=== PATIENT | female | born 1955 | race Caucasian/White ===

== ENCOUNTER 2018-07-22 04:35 | Inpatient (IN) ==
[2018-07-22] MEDS ORDERED: ALBUTEROL/IPRATROPIUM 3 ML NEB RESP TX STA (04:37)
[2018-07-22] MEDS ORDERED: methylPREDNISolone SOD SUC 125 MG/2 ML VIAL IV STA (04:43)
[2018-07-22 05:06] LABS: Basophils % 0.5 % (0.0-0.8); Eosinophils # 0.1 10*3/uL (0.0-0.87); Eosinophils % 0.8 % (0.00-10.9); Hematocrit 45.6 VOL% (35.7-47.0); Hemoglobin 15.6 GM/DL (12.0-16.0); Immature Granulocytes % 0.4 %; Immature Granulocytes Absolute 0.03 #; Lymphocytes # 1.7 10*3/uL (1.4-4.0); Lymphocytes % 20.2 % (21.3-54.2); Mean Corpuscular HGB Conc 34.2 GM/DL (32-36); Mean Corpuscular Hemoglobin 32 PG (27-34); Mean Corpuscular Volume 94.8 FL (87-102); Mean Platelet Volume 9.7 FL (9.6-12.0); Monocytes # 0.7 10*3/uL (0.11-0.8); Monocytes % 8.6 % (1.7-12.7); Neutrophils # 5.9 10*3/uL (1.4-7.4); Neutrophils % 69.5 % (38.7-73.9); Platelet Count 101 T/CUMM (130-400); Red Blood Count 4.81 MC/CUMM (3.8-5.5); Red Cell Distribution Width 13.1 % (9.3-17.3); White Blood Count 8.5 T/CUMM (4-12)
[2018-07-22 05:10] LABS: VBG Base Excess 0.4 MEQ/L (0-4); VBG HCO3 25.9 MEQ/L (24-28); VBG Oxygen Saturation 97.2 %; VBG PCO2 44.6 MMHG (41-51); VBG PH 7.381; VBG PO2 99.8 MMHG (17-40)
[2018-07-22 05:34] LABS: Albumin 3.7 G/DL (3.4-5.0); Bilirubin,Total 0.9 MG/DL (0.2-1.0); Calcium 9.3 MG/DL (8.5-10.1); Osmolality,Calculated 285.5 MOS/KG (273-304); Potassium 3.6 MMOL/L (3.5-5.1); Total Protein 8.9 G/DL (6.4-8.3)
[2018-07-22] MEDS ORDERED: LEVOFLOXACIN INJ 500 MG in PREMIX 1 EACH IV STA (08:18)
[2018-07-22] MEDS ORDERED: ALBUTEROL/IPRATROPIUM 3 ML NEB RESP TX SCH (09:00)
[2018-07-22] MEDS: ENOXAPARIN 40 MG/0.4 ML SYRINGE SUBCUT SCH (09:22)
[2018-07-22] MEDS: SODIUM CHLORIDE 0.9% 1,000 ML IV SCH ×2 (09:22→21:25)
[2018-07-22] MEDS: methylPREDNISolone SOD SUC 40 MG/1 ML VIAL IV SCH ×2 (09:23→21:27)
[2018-07-22] MEDS: PANTOPRAZOLE 40 MG TABLET PO SCH (09:23)
[2018-07-22] MEDS ORDERED: LINEZOLID INJ 600 MG in PREMIX 1 EACH IV SCH (10:00)
[2018-07-22] MEDS: ALBUTEROL/IPRATROPIUM 3 ML NEB RESP TX SCH ×3 (10:33→19:20)
[2018-07-22] MEDS ORDERED: diphenhydrAMINE CAP 25 MG CAPSULE PO PRN (13:05)
[2018-07-22] MEDS: INSULIN LISPRO 100 UNIT/ML SUBCUT SCH ×2 (17:33→21:25)
[2018-07-22] MEDS: MONTELUKAST 10 MG TABLET PO SCH (21:27)
[2018-07-22] MEDS: MELATONIN 3 MG TABLET PO SCH (21:27)
[2018-07-22] MEDS: FAMOTIDINE 20 MG TABLET PO SCH (21:27)
[2018-07-22] MEDS: ALBUTEROL 2 MG TABLET PO SCH (22:34)
[2018-07-23 05:25] LABS: Basophils % 0.2 % (0.0-0.8); Hematocrit 37.8 VOL% (35.7-47.0); Hemoglobin 13.1 GM/DL (12.0-16.0); Immature Granulocytes % 0.5 %; Immature Granulocytes Absolute 0.03 #; Lymphocytes # 1.1 10*3/uL (1.4-4.0); Lymphocytes % 17.1 % (21.3-54.2); Mean Corpuscular HGB Conc 34.7 GM/DL (32-36); Mean Corpuscular Hemoglobin 33 PG (27-34); Mean Corpuscular Volume 93.8 FL (87-102); Monocytes # 0.4 10*3/uL (0.11-0.8); Monocytes % 6.1 % (1.7-12.7); Neutrophils # 4.9 10*3/uL (1.4-7.4); Neutrophils % 76.1 % (38.7-73.9); Platelet Count 99 T/CUMM (130-400); Red Blood Count 4.03 MC/CUMM (3.8-5.5); White Blood Count 6.4 T/CUMM (4-12)
[2018-07-23 05:36] LABS: Calcium 8.4 MG/DL (8.5-10.1); Osmolality,Calculated 287.5 MOS/KG (273-304)
[2018-07-23] MEDS: ALBUTEROL 2 MG TABLET PO SCH ×3 (05:52→21:17)
[2018-07-23 06:06] LABS: Band Neutrophils 1 % (0-10); Lymphocytes 25 % (20-55); Platelet Estimate Decreased; Segmented Neutrophils 70 % (50-85); Total Cells Counted 100
[2018-07-23] MEDS: ALBUTEROL/IPRATROPIUM 3 ML NEB RESP TX SCH ×4 (07:00→19:22)
[2018-07-23] MEDS ORDERED: THEOPHYLLINE ER (24 HR) 200 MG CAPSULE PO SCH (09:00)
[2018-07-23] MEDS: INSULIN LISPRO 100 UNIT/ML SUBCUT SCH ×4 (09:49→21:09)
[2018-07-23] MEDS: FAMOTIDINE 20 MG TABLET PO SCH ×2 (09:51→21:09)
[2018-07-23] MEDS: PANTOPRAZOLE 40 MG TABLET PO SCH (09:51)
[2018-07-23] MEDS: ENOXAPARIN 40 MG/0.4 ML SYRINGE SUBCUT SCH (09:54)
[2018-07-23] MEDS: methylPREDNISolone SOD SUC 40 MG/1 ML VIAL IV SCH ×2 (09:54→21:10)
[2018-07-23] MEDS: LEVOFLOXACIN INJ 250 MG in PREMIX 1 EACH IV SCH (09:57)
[2018-07-23] MEDS: buPROPion SR 150 MG TABLET PO SCH ×2 (12:13→21:10)
[2018-07-23] MEDS: CLORAZEPATE 3.75 MG TABLET PO SCH ×2 (12:13→21:10)
[2018-07-23] MEDS: NICOTINE 21 MG/24 HR PATCH TRANSDERM SCH (12:13)
[2018-07-23] MEDS: FLUTICASONE 50 MCG NASAL SPRAY 16 GM BOTTLE BOTH NARES SCH ×2 (12:14→21:15)
[2018-07-23] MEDS: FLUTICASONE/SALMETEROL 500-50 DISKUS 14 DOSE INH SCH ×2 (12:14→21:15)
[2018-07-23] MEDS: SODIUM CHLORIDE 0.9% 1,000 ML IV SCH (14:30)
[2018-07-23] MEDS: THEOPHYLLINE ER (24 HR) 200 MG CAPSULE PO SCH (21:09)
[2018-07-23] MEDS: MELATONIN 3 MG TABLET PO SCH (21:10)
[2018-07-23] MEDS: MONTELUKAST 10 MG TABLET PO SCH (21:10)
[2018-07-24] MEDS: SODIUM CHLORIDE 0.9% 1,000 ML IV SCH (02:33)
[2018-07-24] MEDS: ALBUTEROL 2 MG TABLET PO SCH ×2 (06:00→14:46)
[2018-07-24 06:12] LABS: Basophils % 0.3 % (0.0-0.8); Hemoglobin 13.2 GM/DL (12.0-16.0); Immature Granulocytes % 1.6 %; Immature Granulocytes Absolute 0.09 #; Lymphocytes % 17.4 % (21.3-54.2); Mean Corpuscular HGB Conc 33.8 GM/DL (32-36); Mean Corpuscular Hemoglobin 32 PG (27-34); Mean Corpuscular Volume 94.7 FL (87-102); Mean Platelet Volume 9.8 FL (9.6-12.0); Monocytes # 0.4 10*3/uL (0.11-0.8); Monocytes % 6.8 % (1.7-12.7); Neutrophils # 4.3 10*3/uL (1.4-7.4); Neutrophils % 73.9 % (38.7-73.9); Platelet Count 114 T/CUMM (130-400); Red Blood Count 4.12 MC/CUMM (3.8-5.5); Red Cell Distribution Width 13.7 % (9.3-17.3); White Blood Count 5.8 T/CUMM (4-12)
[2018-07-24 06:33] LABS: Albumin 3.3 G/DL (3.4-5.0); Bilirubin,Total 0.7 MG/DL (0.2-1.0); Calcium 8.8 MG/DL (8.5-10.1); Potassium 3.4 MMOL/L (3.5-5.1); Total Protein 7.8 G/DL (6.4-8.3)
[2018-07-24] MEDS: ALBUTEROL/IPRATROPIUM 3 ML NEB RESP TX SCH ×3 (06:56→15:52)
[2018-07-24 08:12] LABS: Total Protein (Chem) 8.9 G/DL (6.4-8.3)
[2018-07-24] MEDS ORDERED: POTASSIUM CHLORIDE RIDER 10 MEQ in PREMIX 1 EACH IV PRN (08:43)
[2018-07-24] MEDS: INSULIN LISPRO 100 UNIT/ML SUBCUT SCH ×2 (09:14→12:13)
[2018-07-24] MEDS: NICOTINE 21 MG/24 HR PATCH TRANSDERM SCH (09:15)
[2018-07-24] MEDS: methylPREDNISolone SOD SUC 40 MG/1 ML VIAL IV SCH (09:15)
[2018-07-24] MEDS: FAMOTIDINE 20 MG TABLET PO SCH (09:16)
[2018-07-24] MEDS: CLORAZEPATE 3.75 MG TABLET PO SCH (09:16)
[2018-07-24] MEDS: FLUTICASONE/SALMETEROL 500-50 DISKUS 14 DOSE INH SCH (09:16)
[2018-07-24] MEDS: buPROPion SR 150 MG TABLET PO SCH (09:16)
[2018-07-24] MEDS: PANTOPRAZOLE 40 MG TABLET PO SCH (09:16)
[2018-07-24] MEDS: THEOPHYLLINE ER (24 HR) 200 MG CAPSULE PO SCH (09:16)
[2018-07-24] MEDS: LEVOFLOXACIN INJ 250 MG in PREMIX 1 EACH IV SCH (09:17)
[2018-07-24] MEDS: FLUTICASONE 50 MCG NASAL SPRAY 16 GM BOTTLE BOTH NARES SCH ×2 (09:17→09:28)
[2018-07-24 10:24] LABS: Albumin (SPE) 4.7 G/DL (3.2-5.3); Albumin (SPE) Rel % 52.4 %
[2018-07-24 10:25] LABS: Alpha 1 (SPE) 0.2 G/DL (0.1-0.4); Alpha 1 (SPE) Rel % 2.3 %; Alpha 2 (SPE) 0.8 G/DL (0.4-1.0); Alpha 2 (SPE) Rel % 8.9 %; Beta (SPE) 0.8 G/DL (0.5-1.1); Beta (SPE) Rel % 9.8 %; Gamma (SPE) 2.4 G/DL (0.7-1.7); Gamma (SPE) Rel % 26.6 %
[2018-07-24] MEDS: POTASSIUM CHLORIDE 20 MEQ TABLET PO PRN ×2 (12:16→14:46)
[2018-07-24 13:23] VITALS: BP 176/96
[2018-07-24] MEDS ORDERED: amLODIPine 5 MG TABLET PO SCH (13:30)
== END 2018-07-24 15:42 | disposition home or self-care (01) | DRG 191 ==
LOC: EDBD → EDUNIT# → N.ED 04:35 → N.EDINP 06:19 → N.5E 08:15
PROVIDERS: ADMIT Hospitalist; ATTEND Hospitalist

== ENCOUNTER 2018-11-26 23:14 | Inpatient (IN) ==
[2018-11-26] MEDS ORDERED: MORPHINE 4 MG/1 ML VIAL IV STA (23:44)
[2018-11-26] MEDS ORDERED: hydrALAZINE 20 MG/1 ML VIAL IV STA (23:44)
[2018-11-26] MEDS ORDERED: ONDANSETRON 4 MG/2 ML VIAL IV STA (23:44)
[2018-11-27 00:14] LABS: Basophils % 0.3 % (0.0-0.8); Eosinophils # 0.1 10*3/uL (0.0-0.87); Eosinophils % 1.3 % (0.00-10.9); Hemoglobin 12.3 GM/DL (12.0-16.0); Immature Granulocytes % 0.1 %; Immature Granulocytes Absolute 0.01 #; Lymphocytes # 1.9 10*3/uL (1.4-4.0); Lymphocytes % 27.3 % (21.3-54.2); Mean Corpuscular HGB Conc 35.1 GM/DL (32-36); Mean Corpuscular Hemoglobin 32 PG (27-34); Mean Corpuscular Volume 90.4 FL (87-102); Mean Platelet Volume 9.8 FL (9.6-12.0); Monocytes # 0.7 10*3/uL (0.11-0.8); Monocytes % 10.3 % (1.7-12.7); Neutrophils # 4.2 10*3/uL (1.4-7.4); Neutrophils % 60.7 % (38.7-73.9); Platelet Count 100 T/CUMM (130-400); Red Blood Count 3.87 MC/CUMM (3.8-5.5); Red Cell Distribution Width 13.6 % (9.3-17.3)
[2018-11-27 00:29] LABS: Albumin 2.4 G/DL (3.4-5.0); Bilirubin,Total 1.1 MG/DL (0.2-1.0); Calcium 8.2 MG/DL (8.5-10.1); Osmolality,Calculated 270.4 MOS/KG (273-304); Total Protein 7.2 G/DL (6.4-8.3)
[2018-11-27 00:36] LABS: Potassium 2.2 MMOL/L (3.5-5.1)
[2018-11-27] MEDS ORDERED: POTASSIUM CHLORIDE 20 MEQ TABLET PO STA (01:38)
[2018-11-27] MEDS ORDERED: LACTULOSE 20 GM/30 ML UDCUP PO PRN (04:00)
[2018-11-27] MEDS ORDERED: diphenhydrAMINE CAP 25 MG CAPSULE PO PRN (04:00)
[2018-11-27] MEDS: MORPHINE 4 MG/1 ML VIAL IV PRN ×3 (04:28→20:07)
[2018-11-27] MEDS: ONDANSETRON 4 MG/2 ML VIAL IV PRN ×2 (04:30→20:08)
[2018-11-27 05:02] LABS: Basophils % 0.4 % (0.0-0.8); Eosinophils # 0.1 10*3/uL (0.0-0.87); Eosinophils % 0.7 % (0.00-10.9); Hematocrit 35.4 VOL% (35.7-47.0); Hemoglobin 12.3 GM/DL (12.0-16.0); Immature Granulocytes % 0.3 %; Immature Granulocytes Absolute 0.02 #; Lymphocytes # 1.7 10*3/uL (1.4-4.0); Lymphocytes % 23.2 % (21.3-54.2); Mean Corpuscular HGB Conc 34.7 GM/DL (32-36); Mean Corpuscular Hemoglobin 31 PG (27-34); Mean Corpuscular Volume 90.1 FL (87-102); Mean Platelet Volume 9.6 FL (9.6-12.0); Monocytes # 0.9 10*3/uL (0.11-0.8); Neutrophils # 4.5 10*3/uL (1.4-7.4); Neutrophils % 63.4 % (38.7-73.9); Platelet Count 112 T/CUMM (130-400); Red Blood Count 3.93 MC/CUMM (3.8-5.5); Red Cell Distribution Width 13.9 % (9.3-17.3); White Blood Count 7.2 T/CUMM (4-12)
[2018-11-27 05:12] LABS: PT Patient Result 11.2 SECS
[2018-11-27 05:19] LABS: Calcium 8.4 MG/DL (8.5-10.1); Osmolality,Calculated 266.7 MOS/KG (273-304)
[2018-11-27] MEDS ORDERED: cefTRIAXone 1,000 MG VIAL ONE (05:29)
[2018-11-27] MEDS: cefTRIAXone 1,000 MG in SYRINGE 1 EACH IV SCH (05:45)
[2018-11-27] MEDS ORDERED: POTASSIUM CHLORIDE 20 MEQ TABLET PO ONE (08:43)
[2018-11-27] MEDS ORDERED: PANTOPRAZOLE 40 MG VIAL IV SCH (09:00)
[2018-11-27] MEDS: THEOPHYLLINE ER (24 HR) 200 MG CAPSULE PO SCH (09:43)
[2018-11-27 09:58] LABS: Hepatitis A Ab IgM Quant 0.13 Index; Hepatitis A Ab IgM Result Negative (Negative); Hepatitis B Core IgM Quant 0.05 Index; Hepatitis B Core IgM Result Negative (Negative); Hepatitis B Surface Ag Quant 0.12 Index; Hepatitis B Surface Ag Result Negative (Negative); Hepatitis C Virus Ab Quant < 0.02 Index; Hepatitis C Virus Ab Result Negative (Negative)
[2018-11-27] MEDS: LACTULOSE 20 GM/30 ML UDCUP PO SCH ×2 (11:28→20:06)
[2018-11-27 16:10] LABS: RBC,Peritoneal Fluid 28 T/CUMM
[2018-11-27 16:12] LABS: Apearance,Urine CLEAR (Clear); Bilirubin,Urine Negative (Negative); Blood, Urine Negative (Negative); Glucose,Urine (UA) Negative (Negative); Ketones,Urine Negative (Negative); Nitrite,Urine Positive (Negative); Protein,Urine >=500 MG/DL; RBC,Urine 4 /HPF (0-4); Squamous Epithelial Cell,Urine Occasional /HPF (0-10); Urine Color Amber (Yellow); WBC,Urine 1 /HPF (0-6)
[2018-11-27] MEDS: POTASSIUM CHLORIDE 20 MEQ TABLET PO PRN ×2 (21:38→23:45)
[2018-11-28] MEDS: POTASSIUM CHLORIDE 20 MEQ TABLET PO PRN ×2 (02:24→03:49)
[2018-11-28 05:17] LABS: Albumin 2.2 G/DL (3.4-5.0); Bilirubin,Total 1.2 MG/DL (0.2-1.0); Calcium 8.4 MG/DL (8.5-10.1); Osmolality,Calculated 269.4 MOS/KG (273-304); Potassium 3.3 MMOL/L (3.5-5.1); Total Protein 6.7 G/DL (6.4-8.3)
[2018-11-28] MEDS: MORPHINE 4 MG/1 ML VIAL IV PRN (05:49)
[2018-11-28] MEDS: cefTRIAXone 1,000 MG in SYRINGE 1 EACH IV SCH (05:53)
[2018-11-28] MEDS ORDERED: FUROSEMIDE 40 MG TABLET PO SCH (09:00)
[2018-11-28] MEDS ORDERED: POTASSIUM CHLORIDE 20 MEQ TABLET PO ONE (09:00)
[2018-11-28] MEDS: LACTULOSE 20 GM/30 ML UDCUP PO SCH ×2 (09:16→21:57)
[2018-11-28] MEDS: THEOPHYLLINE ER (24 HR) 200 MG CAPSULE PO SCH (09:16)
[2018-11-28] MEDS: SPIRONOLACTONE 25 MG TABLET PO SCH ×2 (09:17→21:57)
[2018-11-28] MEDS: LISINOPRIL 10 MG TABLET PO SCH (14:33)
[2018-11-28] MEDS: glipiZIDE 5 MG TABLET PO SCH (17:31)
[2018-11-29] MEDS ORDERED: SODIUM CHLORIDE 0.9% 250 ML IV ONE (00:15)
[2018-11-29 05:27] LABS: Calcium 7.8 MG/DL (8.5-10.1); Osmolality,Calculated 271.8 MOS/KG (273-304); Potassium 3.1 MMOL/L (3.5-5.1)
[2018-11-29] MEDS: POTASSIUM CHLORIDE 20 MEQ TABLET PO SCH ×2 (08:31→14:33)
[2018-11-29] MEDS: LACTULOSE 20 GM/30 ML UDCUP PO SCH ×2 (08:31→20:58)
[2018-11-29] MEDS: THEOPHYLLINE ER (24 HR) 200 MG CAPSULE PO SCH (08:31)
[2018-11-29] MEDS: glipiZIDE 5 MG TABLET PO SCH (08:32)
[2018-11-29] MEDS: LISINOPRIL 10 MG TABLET PO SCH (08:32)
[2018-11-29] MEDS: SPIRONOLACTONE 25 MG TABLET PO SCH ×2 (08:32→20:58)
[2018-11-29] MEDS: FUROSEMIDE 20 MG TABLET PO SCH (08:32)
[2018-11-29] MEDS ORDERED: INFLUENZA VIRUS VACCINE 0.5 ML SYRINGE IM ONE (09:00)
[2018-11-29] MEDS ORDERED: GLUCAGON 1 MG VIAL IM PRN (14:37)
[2018-11-29] MEDS ORDERED: DEXTROSE 50% 25 GM/50 ML VIAL IV PRN (14:37)
[2018-11-29] MEDS: INSULIN LISPRO 100 UNIT/ML SUBCUT SCH ×2 (16:53→21:23)
[2018-11-30 04:54] LABS: Basophils % 0.5 % (0.0-0.8); Eosinophils # 0.2 10*3/uL (0.0-0.87); Hemoglobin 11.1 GM/DL (12.0-16.0); Immature Granulocytes % 0.3 %; Immature Granulocytes Absolute 0.02 #; Lymphocytes # 1.8 10*3/uL (1.4-4.0); Lymphocytes % 30.4 % (21.3-54.2); Mean Corpuscular HGB Conc 32.6 GM/DL (32-36); Mean Corpuscular Hemoglobin 31 PG (27-34); Mean Corpuscular Volume 96.3 FL (87-102); Mean Platelet Volume 9.9 FL (9.6-12.0); Monocytes # 0.8 10*3/uL (0.11-0.8); Monocytes % 12.9 % (1.7-12.7); Neutrophils # 3.2 10*3/uL (1.4-7.4); Neutrophils % 52.9 % (38.7-73.9); Platelet Count 104 T/CUMM (130-400); Red Blood Count 3.53 MC/CUMM (3.8-5.5); Red Cell Distribution Width 14.2 % (9.3-17.3); White Blood Count 6.1 T/CUMM (4-12)
[2018-11-30 05:14] LABS: Albumin 1.9 G/DL (3.4-5.0); Bilirubin,Total 1.2 MG/DL (0.2-1.0); Calcium 7.8 MG/DL (8.5-10.1); Osmolality,Calculated 270.1 MOS/KG (273-304)
[2018-11-30] MEDS ORDERED: glipiZIDE 5 MG TABLET PO SCH (07:30)
[2018-11-30] MEDS: ONDANSETRON 4 MG/2 ML VIAL IV PRN (07:55)
[2018-11-30] MEDS: INSULIN LISPRO 100 UNIT/ML SUBCUT SCH ×4 (09:07→22:12)
[2018-11-30] MEDS: LISINOPRIL 10 MG TABLET PO SCH (09:09)
[2018-11-30] MEDS: LACTULOSE 20 GM/30 ML UDCUP PO SCH ×2 (09:09→22:11)
[2018-11-30] MEDS: FUROSEMIDE 20 MG TABLET PO SCH (09:09)
[2018-11-30] MEDS: SPIRONOLACTONE 25 MG TABLET PO SCH ×3 (10:05→22:12)
[2018-11-30] MEDS: PROMETHAZINE 25 MG TABLET PO PRN ×2 (11:31→17:26)
[2018-12-01 05:19] LABS: Basophils % 0.6 % (0.0-0.8); Eosinophils # 0.2 10*3/uL (0.0-0.87); Eosinophils % 3.8 % (0.00-10.9); Hematocrit 34.8 VOL% (35.7-47.0); Hemoglobin 11.2 GM/DL (12.0-16.0); Immature Granulocytes % 0.2 %; Immature Granulocytes Absolute 0.01 #; Lymphocytes # 1.9 10*3/uL (1.4-4.0); Lymphocytes % 35.8 % (21.3-54.2); Mean Corpuscular HGB Conc 32.2 GM/DL (32-36); Mean Corpuscular Hemoglobin 31 PG (27-34); Mean Corpuscular Volume 97.2 FL (87-102); Mean Platelet Volume 9.8 FL (9.6-12.0); Monocytes # 0.6 10*3/uL (0.11-0.8); Monocytes % 11.8 % (1.7-12.7); Neutrophils # 2.6 10*3/uL (1.4-7.4); Neutrophils % 47.8 % (38.7-73.9); Platelet Count 109 T/CUMM (130-400); Red Blood Count 3.58 MC/CUMM (3.8-5.5); Red Cell Distribution Width 13.7 % (9.3-17.3); White Blood Count 5.3 T/CUMM (4-12)
[2018-12-01 05:37] LABS: Osmolality,Calculated 268.2 MOS/KG (273-304); Potassium 3.9 MMOL/L (3.5-5.1)
[2018-12-01] MEDS: LISINOPRIL 10 MG TABLET PO SCH (08:10)
[2018-12-01] MEDS: FUROSEMIDE 20 MG TABLET PO SCH ×2 (08:10→16:51)
[2018-12-01] MEDS: SPIRONOLACTONE 25 MG TABLET PO SCH (08:11)
[2018-12-01] MEDS: LACTULOSE 20 GM/30 ML UDCUP PO SCH ×2 (08:11→21:08)
[2018-12-01] MEDS: INSULIN LISPRO 100 UNIT/ML SUBCUT SCH ×4 (08:11→22:13)
[2018-12-01] MEDS: SPIRONOLACTONE 50 MG TABLET PO SCH (21:08)
[2018-12-02 08:36] LABS: Osmolality,Calculated 271.1 MOS/KG (273-304); Potassium 3.7 MMOL/L (3.5-5.1)
[2018-12-02] MEDS: LISINOPRIL 10 MG TABLET PO SCH (09:10)
[2018-12-02] MEDS: INSULIN LISPRO 100 UNIT/ML SUBCUT SCH ×4 (09:10→21:56)
[2018-12-02] MEDS: LACTULOSE 20 GM/30 ML UDCUP PO SCH ×2 (09:11→21:58)
[2018-12-02] MEDS: FUROSEMIDE 20 MG TABLET PO SCH ×2 (09:11→16:08)
[2018-12-02] MEDS: SPIRONOLACTONE 50 MG TABLET PO SCH ×2 (09:11→21:57)
[2018-12-03 05:27] LABS: Calcium 7.7 MG/DL (8.5-10.1); Osmolality,Calculated 270.1 MOS/KG (273-304); Potassium 3.6 MMOL/L (3.5-5.1)
[2018-12-03 08:16] VITALS: BP 155/91
[2018-12-03] MEDS: INSULIN LISPRO 100 UNIT/ML SUBCUT SCH (08:55)
[2018-12-03] MEDS: FUROSEMIDE 20 MG TABLET PO SCH (08:56)
[2018-12-03] MEDS: LACTULOSE 20 GM/30 ML UDCUP PO SCH (08:56)
[2018-12-03] MEDS: LISINOPRIL 10 MG TABLET PO SCH (08:56)
[2018-12-03] MEDS: SPIRONOLACTONE 50 MG TABLET PO SCH (08:56)
== END 2018-12-03 10:47 | disposition home or self-care (01) | DRG 433 ==
LOC: EDBD → EDUNIT# → N.ED 23:14 → SUATTDRO 11-27 02:29 → N.EDINP 11-27 02:29 → N.CC 11-27 06:18 → N.2E 11-27 22:36
PROVIDERS: ADMIT Internal Medicine; ATTEND Emergency Medicine

== ENCOUNTER 2019-07-02 14:01 | Observation (INO) ==
[2019-07-02] MEDS ORDERED: ALBUTEROL NEB SOLN 5 MG/ML 20 ML/BOTTLE CONT NEB STA (15:17)
[2019-07-02] MEDS ORDERED: LEVOFLOXACIN INJ 500 MG in PREMIX 1 EACH IV STA (15:17)
[2019-07-02] MEDS ORDERED: methylPREDNISolone SOD SUC 125 MG/2 ML VIAL IV STA (15:17)
[2019-07-02 15:27] LABS: Basophils % 0.3 % (0.0-0.8); Eosinophils % 0.4 % (0.00-10.9); Hematocrit 37.5 VOL% (35.7-47.0); Hemoglobin 13.1 GM/DL (12.0-16.0); Immature Granulocytes % 0.5 %; Immature Granulocytes Absolute 0.04 #; Lymphocytes % 13.9 % (21.3-54.2); Mean Corpuscular HGB Conc 34.9 GM/DL (32-36); Mean Corpuscular Volume 91.7 FL (87-102); Mean Platelet Volume 10.5 FL (9.6-12.0); Monocytes % 8.9 % (1.7-12.7); Platelet Count 107 T/CUMM (130-400); Red Blood Count 4.09 MC/CUMM (3.8-5.5); White Blood Count 7.4 T/CUMM (4-12)
[2019-07-02 15:55] LABS: Alanine Aminotransferase 25 U/L (13-56); Albumin 3.1 G/DL (3.4-5.0); Alkaline Phosphatase 155 U/L (45-117); Aspartate Amino Transferase 34 U/L (0-37); Blood Urea Nitrogen 18 MG/DL (7-18); Calcium 8.5 MG/DL (8.5-10.1); Glucose 184 MG/DL (74-106); Osmolality,Calculated 279.8 MOS/KG (273-304); Total Protein 7.8 G/DL (6.4-8.3)
[2019-07-02 15:58] LABS: Troponin I 0.236 NG/ML (0.00-0.045)
[2019-07-02] MEDS ORDERED: LACTULOSE 20 GM/30 ML UDCUP PO PRN (16:52)
[2019-07-02] MEDS ORDERED: ONDANSETRON 4 MG/2 ML VIAL IV PRN (16:52)
[2019-07-02] MEDS ORDERED: ALBUTEROL 2.5 MG/3 ML NEB RESP TX PRN ×2 (16:55→17:01)
[2019-07-02 17:30] LABS: Thyroid Stimulating Hormone 0.094 uIU/ml (0.358-3.74)
[2019-07-02] MEDS: ENOXAPARIN 40 MG/0.4 ML SYRINGE SUBCUT SCH (18:10)
[2019-07-02] MEDS: guaiFENesin/DM ER 600-30 MG TABLET PO SCH (18:10)
[2019-07-02] MEDS: POTASSIUM CHLORIDE RIDER 10 MEQ in PREMIX 1 EACH IV PRN ×2 (18:11→20:42)
[2019-07-02] MEDS ORDERED: COMBIVENT INHALER RESP TX SCH (19:00)
[2019-07-02] MEDS: ALBUTEROL/IPRATROPIUM 3 ML NEB RESP TX SCH (19:15)
[2019-07-02] MEDS: methylPREDNISolone SOD SUC 40 MG/1 ML VIAL IV SCH (20:41)
[2019-07-02] MEDS: PROPRANOLOL 20 MG TABLET PO SCH (20:41)
[2019-07-03] MEDS: ALBUTEROL/IPRATROPIUM 3 ML NEB RESP TX SCH ×4 (00:10→20:18)
[2019-07-03] MEDS: POTASSIUM CHLORIDE RIDER 10 MEQ in PREMIX 1 EACH IV PRN (00:43)
[2019-07-03] MEDS: methylPREDNISolone SOD SUC 40 MG/1 ML VIAL IV SCH ×3 (05:42→22:06)
[2019-07-03] MEDS: guaiFENesin/DM ER 600-30 MG TABLET PO SCH ×2 (05:42→16:59)
[2019-07-03 06:53] LABS: Hematocrit 32.8 VOL% (35.7-47.0); Hemoglobin 11.5 GM/DL (12.0-16.0); Immature Granulocytes % 0.8 %; Immature Granulocytes Absolute 0.03 #; Lymphocytes # 0.7 10*3/uL (1.4-4.0); Lymphocytes % 17.9 % (21.3-54.2); Mean Corpuscular HGB Conc 35.1 GM/DL (32-36); Mean Corpuscular Volume 92.1 FL (87-102); Monocytes % 9.2 % (1.7-12.7); Neutrophils % 72.1 % (38.7-73.9); Platelet Count 100 T/CUMM (130-400); Red Blood Count 3.56 MC/CUMM (3.8-5.5); Red Cell Distribution Width 12.9 % (9.3-17.3); White Blood Count 3.9 T/CUMM (4-12)
[2019-07-03 07:07] LABS: Calcium 8.7 MG/DL (8.5-10.1); Osmolality,Calculated 286.1 MOS/KG (273-304); Risk Ratio 3.11; VLDL CHOLESTEROL 24.4 MG/DL
[2019-07-03 07:12] LABS: Hypochromasia 1+; Platelet Estimate Decreased
[2019-07-03] MEDS ORDERED: DEXTROSE 50% 25 GM/50 ML VIAL IV PRN (07:55)
[2019-07-03] MEDS ORDERED: GLUCAGON 1 MG VIAL IM PRN (07:55)
[2019-07-03 08:26] LABS: Free T4 (Free Thyroxine) 1.6 NG/DL (0.76-1.46)
[2019-07-03] MEDS: POTASSIUM CHLORIDE 20 MEQ TABLET PO PRN ×4 (09:00→17:01)
[2019-07-03] MEDS: PANTOPRAZOLE 40 MG TABLET PO SCH (09:01)
[2019-07-03] MEDS: BENZONATATE 100 MG CAPSULE PO SCH ×3 (09:01→22:04)
[2019-07-03] MEDS: PROPRANOLOL 20 MG TABLET PO SCH ×2 (09:04→22:09)
[2019-07-03] MEDS: LISINOPRIL 10 MG TABLET PO SCH (09:04)
[2019-07-03] MEDS: FUROSEMIDE 20 MG TABLET PO SCH ×2 (09:04→12:34)
[2019-07-03] MEDS: INSULIN REGULAR 100 UNIT/ML SUBCUT SCH ×3 (12:34→22:28)
[2019-07-03 15:17] LABS: Apearance,Urine CLEAR (Clear); Bilirubin,Urine Negative (Negative); Blood, Urine Negative (Negative); Glucose,Urine (UA) 50 mg/dL (Negative); Ketones,Urine Negative (Negative); Nitrite,Urine Negative (Negative); Protein,Urine Negative; Squamous Epithelial Cell,Urine Occasional /HPF (0-10); Urine Color Yellow (Yellow); Urine Specific Gravity 1.005 (1.001-1.035)
[2019-07-03] MEDS: LEVOFLOXACIN INJ 500 MG in PREMIX 1 EACH IV SCH (15:54)
[2019-07-03] MEDS: ENOXAPARIN 40 MG/0.4 ML SYRINGE SUBCUT SCH (16:59)
[2019-07-04] MEDS: ALBUTEROL/IPRATROPIUM 3 ML NEB RESP TX SCH ×4 (00:32→19:07)
[2019-07-04 05:02] LABS: Basophils % 0.2 % (0.0-0.8); Hematocrit 31.7 VOL% (35.7-47.0); Hemoglobin 10.8 GM/DL (12.0-16.0); Immature Granulocytes % 0.4 %; Immature Granulocytes Absolute 0.02 #; Lymphocytes # 0.8 10*3/uL (1.4-4.0); Lymphocytes % 17.7 % (21.3-54.2); Mean Corpuscular HGB Conc 34.1 GM/DL (32-36); Mean Corpuscular Volume 94.3 FL (87-102); Mean Platelet Volume 10.9 FL (9.6-12.0); Monocytes % 9.2 % (1.7-12.7); Neutrophils % 72.5 % (38.7-73.9); Platelet Count 107 T/CUMM (130-400); Red Blood Count 3.36 MC/CUMM (3.8-5.5); Red Cell Distribution Width 13.2 % (9.3-17.3); White Blood Count 4.5 T/CUMM (4-12)
[2019-07-04] MEDS: methylPREDNISolone SOD SUC 40 MG/1 ML VIAL IV SCH (05:34)
[2019-07-04] MEDS: guaiFENesin/DM ER 600-30 MG TABLET PO SCH ×2 (05:37→17:16)
[2019-07-04 05:44] LABS: Calcium 8.4 MG/DL (8.5-10.1); Osmolality,Calculated 291.7 MOS/KG (273-304)
[2019-07-04] MEDS: LISINOPRIL 10 MG TABLET PO SCH (09:09)
[2019-07-04] MEDS: GLIMEPIRIDE 2 MG TABLET PO SCH (09:09)
[2019-07-04] MEDS: INSULIN REGULAR 100 UNIT/ML SUBCUT SCH ×4 (09:09→22:17)
[2019-07-04] MEDS: FUROSEMIDE 20 MG TABLET PO SCH ×2 (09:10→13:14)
[2019-07-04] MEDS: BENZONATATE 100 MG CAPSULE PO SCH ×3 (09:10→21:18)
[2019-07-04] MEDS: PANTOPRAZOLE 40 MG TABLET PO SCH (09:10)
[2019-07-04] MEDS: PROPRANOLOL 20 MG TABLET PO SCH ×2 (09:10→21:19)
[2019-07-04] MEDS: POTASSIUM CHLORIDE 20 MEQ TABLET PO PRN (09:10)
[2019-07-04] MEDS: predniSONE 20 MG TABLET PO SCH (09:10)
[2019-07-04] MEDS: LEVOFLOXACIN INJ 500 MG in PREMIX 1 EACH IV SCH (16:31)
[2019-07-04] MEDS: ENOXAPARIN 40 MG/0.4 ML SYRINGE SUBCUT SCH (16:31)
[2019-07-05] MEDS: ALBUTEROL/IPRATROPIUM 3 ML NEB RESP TX SCH ×2 (00:36→07:42)
[2019-07-05] MEDS: guaiFENesin/DM ER 600-30 MG TABLET PO SCH (06:28)
[2019-07-05] MEDS: INSULIN REGULAR 100 UNIT/ML SUBCUT SCH (09:21)
[2019-07-05] MEDS: predniSONE 20 MG TABLET PO SCH (09:23)
[2019-07-05] MEDS: BENZONATATE 100 MG CAPSULE PO SCH (09:25)
[2019-07-05] MEDS: LISINOPRIL 10 MG TABLET PO SCH (09:25)
[2019-07-05] MEDS: PROPRANOLOL 20 MG TABLET PO SCH (09:25)
[2019-07-05] MEDS: PANTOPRAZOLE 40 MG TABLET PO SCH (09:25)
[2019-07-05] MEDS: GLIMEPIRIDE 2 MG TABLET PO SCH (09:26)
[2019-07-05] MEDS: FUROSEMIDE 20 MG TABLET PO SCH (09:27)
[2019-07-05 10:50] VITALS: BP 152/75
== END 2019-07-05 11:46 | disposition home or self-care (01) ==
LOC: N.EDINP 14:01 → N.ED 14:01 → N.5E 16:35

== ENCOUNTER 2020-01-23 05:20 | Inpatient (IN) ==
[2020-01-23] MEDS ORDERED: ASPIRIN 325 MG TABLET ONE (05:40)
[2020-01-23] MEDS ORDERED: ONDANSETRON 4 MG/2 ML VIAL ONE (05:40)
[2020-01-23] MEDS ORDERED: EPTIFIBATIDE 20,000 MCG/10 ML VIAL ONE ×2 (05:41→06:24)
[2020-01-23] MEDS ORDERED: NITROGLYCERIN DRIP 0 MG/0 ML BOTTLE IV ONE (05:42)
[2020-01-23] MEDS ORDERED: ONDANSETRON 4 MG/2 ML VIAL IV STA (05:47)
[2020-01-23] MEDS ORDERED: ASPIRIN 325 MG TABLET PO STA (05:47)
[2020-01-23] MEDS ORDERED: SODIUM CHLORIDE 0.9% 1,000 ML IV STA (05:47)
[2020-01-23 05:59] LABS: Basophils # 0.1 10*3/uL (0.0-0.2); Basophils % 0.3 % (0.0-0.8); Eosinophils % 0.1 % (0.00-10.9); Hemoglobin 13.2 GM/DL (12.0-16.0); Immature Granulocytes % 0.8 %; Immature Granulocytes Absolute 0.14 #; Lymphocytes # 4.9 10*3/uL (1.4-4.0); Lymphocytes % 26.5 % (21.3-54.2); Mean Corpuscular HGB Conc 36.7 GM/DL (32-36); Mean Platelet Volume 11.1 FL (9.6-12.0); Monocytes % 4.8 % (1.7-12.7); Neutrophils % 67.5 % (38.7-73.9); Platelet Count 167 T/CUMM (130-400); White Blood Count 18.3 T/CUMM (4-12)
[2020-01-23] MEDS ORDERED: EPTIFIBATIDE 75 MG/100 ML BOTTLE IV SCH ×2 (06:00→06:30)
[2020-01-23] MEDS ORDERED: EPTIFIBATIDE 20,000 MCG/10 ML VIAL IV SCH ×2 (06:00)
[2020-01-23] MEDS ORDERED: HEPARIN/NACL 0.9% 2 UNITS/ML 1,500 ML IV ONE (06:19)
[2020-01-23 06:20] LABS: Anisocytosis 1+; Platelet Estimate Normal
[2020-01-23 06:21] LABS: Albumin 2.8 G/DL (3.4-5.0); Bilirubin,Total 1.5 MG/DL (0.2-1.0); Osmolality,Calculated 285.5 MOS/KG (273-304); Total Protein 7.6 G/DL (6.4-8.3)
[2020-01-23] MEDS ORDERED: ENOXAPARIN 30 MG/0.3 ML SYRINGE ONE (06:24)
[2020-01-23 06:36] LABS: INR 1.2; PT Patient Result 12.7 SECS (9.6-12.2)
[2020-01-23] MEDS ORDERED: TICAGRELOR 90 MG TABLET ONE (07:06)
[2020-01-23] MEDS ORDERED: ZALEPLON 5 MG CAPSULE PO PRN (07:25)
[2020-01-23] MEDS ORDERED: DEXTROSE 50% 25 GM/50 ML VIAL IV PRN ×2 (07:25→14:23)
[2020-01-23] MEDS ORDERED: GLUCAGON 1 MG VIAL IM PRN ×2 (07:25→14:23)
[2020-01-23] MEDS ORDERED: SODIUM CHLORIDE 0.9% 1,000 ML IV SCH (07:30)
[2020-01-23] MEDS ORDERED: SODIUM CHLOR 0.9% KCL 40 MEQ 40 MEQ/1,000 ML BAG IV SCH (07:30)
[2020-01-23] MEDS ORDERED: PHENYLEPHRINE 50 MG/5 ML VIAL ONE (07:43)
[2020-01-23] MEDS: PHENYLEPHRINE DRIP 40 MG/250 ML PREMIX IV PRN (08:05)
[2020-01-23] MEDS ORDERED: POTASSIUM CHLORIDE 20 MEQ TABLET PO ONE ×2 (08:27→12:00)
[2020-01-23] MEDS ORDERED: ASPIRIN CHEW 81 MG TABLET PO SCH (09:00)
[2020-01-23] MEDS ORDERED: PANTOPRAZOLE 40 MG TABLET PO SCH (09:00)
[2020-01-23] MEDS: TICAGRELOR 90 MG TABLET PO SCH ×2 (09:27→22:00)
[2020-01-23 09:45] LABS: CKMB % 10.8 %
[2020-01-23] MEDS ORDERED: ALBUTEROL/IPRATROPIUM 3 ML NEB RESP TX ONE (10:53)
[2020-01-23] MEDS: NICOTINE 14 MG/24 HR PATCH TRANSDERM SCH (11:04)
[2020-01-23] MEDS: methylPREDNISolone SOD SUC 40 MG/1 ML VIAL IV SCH ×2 (11:04→17:09)
[2020-01-23 11:07] LABS: Apearance,Urine CLEAR (Clear); Bilirubin,Urine Negative (Negative); Blood, Urine Moderate mg/dL (Negative); Glucose,Urine (UA) Negative (Negative); Ketones,Urine Negative (Negative); Mucus,Urine Occasional /LPF (Occasional); Nitrite,Urine Negative (Negative); Protein,Urine 30 MG/DL; RBC,Urine 1 /HPF (0-4); Squamous Epithelial Cell,Urine Occasional /HPF (0-10); Urine Color Yellow (Yellow); Urine Specific Gravity 1.046 (1.001-1.035); WBC,Urine 1 /HPF (0-6)
[2020-01-23 12:58] LABS: ABG Base Excess 3.1 MMOL/L (-2.5-2.5); ABG HCO3 27.2 MMOL/L (20-26); ABG Oxygen Saturation 95.7 % (95-100); ABG PCO2 32.2 MM HG (35-48); ABG PH 7.512 (7.35-7.45); ABG PO2 71.6 MM HG (80-95); ABG TCO2 23.4 MMOL/L (23-27); Allen Test Positive
[2020-01-23] MEDS: LEVOFLOXACIN INJ 500 MG in PREMIX 1 EACH IV SCH (13:35)
[2020-01-23] MEDS ORDERED: LACTULOSE 20 GM/30 ML UDCUP PO SCH ×2 (14:23→21:00)
[2020-01-23] MEDS: LEVALBUTEROL 1.25 MG/3 ML NEB RESP TX SCH ×2 (15:44→23:26)
[2020-01-23 16:28] LABS: Hematocrit 26.2 VOL% (35.7-47.0)
[2020-01-23 16:30] LABS: Hemoglobin 9.1 GM/DL (12.0-16.0)
[2020-01-23 16:43] LABS: CKMB % 10.1 %
[2020-01-23] MEDS ORDERED: SODIUM CHLORIDE 0.9% 1,000 ML IV PRN (16:44)
[2020-01-23] MEDS ORDERED: ALBUTEROL/IPRATROPIUM 3 ML NEB RESP TX SCH (17:00)
[2020-01-23] MEDS: FUROSEMIDE 20 MG TABLET PO SCH (17:09)
[2020-01-23] MEDS: INSULIN REGULAR 100 UNIT/ML SUBCUT SCH ×2 (17:35→21:59)
[2020-01-23] MEDS: ONDANSETRON 4 MG/2 ML VIAL IV PRN (17:36)
[2020-01-23] MEDS ORDERED: FUROSEMIDE 40 MG/4 ML VIAL IV ONE (20:00)
[2020-01-23] MEDS: ROSUVASTATIN 20 MG TABLET PO SCH (21:59)
[2020-01-23] MEDS ORDERED: ALBUMIN 25% 25 GM in PREMIX 1 EACH IV ONE (22:20)
[2020-01-23 22:41] LABS: Hematocrit 33.4 VOL% (35.7-47.0); Hemoglobin 11.3 GM/DL (12.0-16.0)
[2020-01-23] MEDS: PANTOPRAZOLE 40 MG VIAL IV ONE ×2 (23:08→23:12)
[2020-01-23 23:14] LABS: CKMB % 10.6 %
[2020-01-23] MEDS ORDERED: PANTOPRAZOLE INJ 80 MG in SODIUM CHLORIDE 0.9% 100 ML IV ONE (23:30)
[2020-01-24] MEDS: PANTOPRAZOLE INJ 200 MG in SODIUM CHLORIDE 0.9% 250 ML IV SCH (00:02)
[2020-01-24] MEDS: methylPREDNISolone SOD SUC 40 MG/1 ML VIAL IV SCH ×3 (02:10→18:30)
[2020-01-24] MEDS ORDERED: LORazepam 2 MG/1 ML VIAL IV ONE ×2 (02:31→04:58)
[2020-01-24 03:26] LABS: Basophils % 0.1 % (0.0-0.8); Hematocrit 28.2 VOL% (35.7-47.0); Hemoglobin 9.4 GM/DL (12.0-16.0); Immature Granulocytes % 0.7 %; Immature Granulocytes Absolute 0.15 #; Lymphocytes # 3.5 10*3/uL (1.4-4.0); Lymphocytes % 16.1 % (21.3-54.2); Mean Corpuscular HGB Conc 33.3 GM/DL (32-36); Mean Platelet Volume 11.3 FL (9.6-12.0); Monocytes % 8.4 % (1.7-12.7); Neutrophils % 74.7 % (38.7-73.9); Platelet Count 127 T/CUMM (130-400); Red Cell Distribution Width 15.1 % (9.3-17.3); White Blood Count 21.5 T/CUMM (4-12)
[2020-01-24 03:47] LABS: Calcium 7.6 MG/DL (8.5-10.1); Risk Ratio 3.88
[2020-01-24 03:49] LABS: Band Neutrophils 1 % (0-10); Lymphocytes 16 % (20-55); Segmented Neutrophils 75 % (50-85); Total Cells Counted 100
[2020-01-24 03:59] LABS: Anisocytosis 1+
[2020-01-24 04:00] LABS: Ovalocytes Few; Platelet Estimate Adequate
[2020-01-24 04:56] LABS: ABG Base Excess -0.4 MMOL/L (-2.5-2.5); ABG HCO3 23.8 MMOL/L (20-26); ABG Oxygen Saturation 96.2 % (95-100); ABG PCO2 37.1 MM HG (35-48); ABG PH 7.425 (7.35-7.45); ABG PO2 94.3 MM HG (80-95); ABG TCO2 24.9 MMOL/L (23-27); Allen Test Positive
[2020-01-24] MEDS ORDERED: DIGOXIN 0.5 MG/2 ML AMP IV ONE ×2 (05:29→10:16)
[2020-01-24] MEDS ORDERED: LACTULOSE 20 GM/30 ML UDCUP PO SCH ×2 (06:30→09:00)
[2020-01-24] MEDS: LEVALBUTEROL 1.25 MG/3 ML NEB RESP TX SCH ×3 (08:31→23:11)
[2020-01-24] MEDS ORDERED: THEOPHYLLINE ER (24 HR) 200 MG CAPSULE PO SCH (09:00)
[2020-01-24] MEDS: GLIMEPIRIDE 2 MG TABLET PO SCH (09:08)
[2020-01-24] MEDS: LACTULOSE 20 GM/30 ML UDCUP PO SCH ×4 (09:08→22:08)
[2020-01-24] MEDS: NICOTINE 14 MG/24 HR PATCH TRANSDERM SCH (09:08)
[2020-01-24] MEDS: FUROSEMIDE 20 MG TABLET PO SCH ×2 (09:09→16:00)
[2020-01-24] MEDS: INSULIN REGULAR 100 UNIT/ML SUBCUT SCH ×4 (10:34→17:54)
[2020-01-24] MEDS: THEOPHYLLINE 5.33 MG/ML 30 ML/BOTTLE PER TUBE SCH ×3 (10:34→22:08)
[2020-01-24] MEDS ORDERED: ETOMIDATE 20 MG/10 ML VIAL IV ONE ×2 (10:47→10:50)
[2020-01-24] MEDS ORDERED: SUCCINYLCHOLINE 200 MG/10 ML VIAL ONE (10:48)
[2020-01-24] MEDS ORDERED: SUCCINYLCHOLINE 200 MG/10 ML VIAL IV ONE (10:50)
[2020-01-24] MEDS ORDERED: MIDAZOLAM 10 MG/2 ML VIAL ONE (11:23)
[2020-01-24] MEDS ORDERED: MIDAZOLAM 2 MG/2 ML VIAL IV ONE (11:30)
[2020-01-24] MEDS ORDERED: MIDAZOLAM 10 MG/2 ML VIAL IV ONE (11:30)
[2020-01-24] MEDS ORDERED: MORPHINE 4 MG/1 ML VIAL ONE (11:37)
[2020-01-24] MEDS ORDERED: METOPROLOL TARTRATE 5 MG/5 ML VIAL IV ONE ×2 (11:37→12:00)
[2020-01-24] MEDS ORDERED: MORPHINE 4 MG/1 ML VIAL IV ONE (12:00)
[2020-01-24] MEDS: MIDAZOLAM 100 MG in SODIUM CHLORIDE 0.9% 80 ML IV PRN (12:05)
[2020-01-24] MEDS: fentaNYL INJ 1,250 MCG in SODIUM CHLORIDE 0.9% 225 ML IV PRN (12:05)
[2020-01-24 12:33] LABS: ABG Base Excess 0.3 MMOL/L (-2.5-2.5); ABG HCO3 24.7 MMOL/L (20-26); ABG Oxygen Saturation 99.8 % (95-100); ABG PCO2 36.8 MM HG (35-48); ABG TCO2 22.4 MMOL/L (23-27); Pt O2 Delivery Device Ventilator
[2020-01-24 14:06] LABS: Basophils % 0.2 % (0.0-0.8); Hematocrit 24.8 VOL% (35.7-47.0); Hemoglobin 8.5 GM/DL (12.0-16.0); Immature Granulocytes % 0.7 %; Immature Granulocytes Absolute 0.13 #; Lymphocytes # 2.1 10*3/uL (1.4-4.0); Lymphocytes % 10.7 % (21.3-54.2); Mean Corpuscular HGB Conc 34.3 GM/DL (32-36); Mean Corpuscular Volume 91.2 FL (87-102); Mean Platelet Volume 11.4 FL (9.6-12.0); Monocytes % 5.8 % (1.7-12.7); Neutrophils % 82.6 % (38.7-73.9); Platelet Count 136 T/CUMM (130-400); Red Blood Count 2.72 MC/CUMM (3.8-5.5); White Blood Count 19.8 T/CUMM (4-12)
[2020-01-24] MEDS: LEVOFLOXACIN INJ 500 MG in PREMIX 1 EACH IV SCH (15:26)
[2020-01-24] MEDS: POTASSIUM CHLORIDE RIDER 10 MEQ in PREMIX 1 EACH IV PRN ×3 (15:40→20:00)
[2020-01-24] MEDS: PHENYLEPHRINE DRIP 40 MG/250 ML PREMIX IV PRN ×2 (15:55→20:10)
[2020-01-24] MEDS ORDERED: SODIUM CHLORIDE 0.9% 1,000 ML IV PRN (18:53)
[2020-01-24 19:06] LABS: Basophils % 0.2 % (0.0-0.8); Hematocrit 25.7 VOL% (35.7-47.0); Hemoglobin 8.5 GM/DL (12.0-16.0); Immature Granulocytes % 0.9 %; Immature Granulocytes Absolute 0.22 #; Lymphocytes # 3.1 10*3/uL (1.4-4.0); Mean Corpuscular HGB Conc 33.1 GM/DL (32-36); Mean Corpuscular Volume 94.8 FL (87-102); Mean Platelet Volume 11.5 FL (9.6-12.0); Monocytes % 11.3 % (1.7-12.7); Neutrophils % 75.6 % (38.7-73.9); Platelet Count 169 T/CUMM (130-400); Red Blood Count 2.71 MC/CUMM (3.8-5.5); Red Cell Distribution Width 16.4 % (9.3-17.3); White Blood Count 25.8 T/CUMM (4-12)
[2020-01-24 19:29] LABS: Lymphocytes 8 % (20-55); Platelet Estimate Normal; Polychromasia Slight; Segmented Neutrophils 88 % (50-85); Total Cells Counted 100
[2020-01-24] MEDS: ROSUVASTATIN 20 MG TABLET PO SCH (22:07)
[2020-01-25] MEDS: INSULIN REGULAR 100 UNIT/ML SUBCUT SCH ×4 (00:22→18:25)
[2020-01-25] MEDS: POTASSIUM CHLORIDE RIDER 10 MEQ in PREMIX 1 EACH IV PRN (01:02)
[2020-01-25] MEDS: LACTULOSE 20 GM/30 ML UDCUP PO SCH ×6 (01:48→21:42)
[2020-01-25] MEDS: methylPREDNISolone SOD SUC 40 MG/1 ML VIAL IV SCH ×2 (01:49→09:29)
[2020-01-25] MEDS: PANTOPRAZOLE INJ 200 MG in SODIUM CHLORIDE 0.9% 250 ML IV SCH (01:50)
[2020-01-25 04:42] LABS: ABG HCO3 22.8 MMOL/L (20-26); ABG Oxygen Saturation 99.6 % (95-100); ABG PCO2 38.8 MM HG (35-48); ABG PH 7.379 (7.35-7.45); ABG TCO2 20.4 MMOL/L (23-27); Allen Test Positive; Pt O2 Delivery Device Ventilator
[2020-01-25 04:45] LABS: Basophils % 0.2 % (0.0-0.8); Hematocrit 34.1 VOL% (35.7-47.0); Hemoglobin 11.4 GM/DL (12.0-16.0); Immature Granulocytes % 0.9 %; Immature Granulocytes Absolute 0.11 #; Lymphocytes # 1.4 10*3/uL (1.4-4.0); Lymphocytes % 11.4 % (21.3-54.2); Mean Corpuscular HGB Conc 33.4 GM/DL (32-36); Mean Corpuscular Volume 92.2 FL (87-102); Mean Platelet Volume 11.1 FL (9.6-12.0); Monocytes % 6.1 % (1.7-12.7); Neutrophils % 81.4 % (38.7-73.9); Red Cell Distribution Width 15.6 % (9.3-17.3); White Blood Count 12.3 T/CUMM (4-12)
[2020-01-25 05:00] LABS: Albumin 2.8 G/DL (3.4-5.0); Bilirubin,Total 0.7 MG/DL (0.2-1.0); Calcium 8.1 MG/DL (8.5-10.1); Osmolality,Calculated 323.1 MOS/KG (273-304); Total Protein 5.8 G/DL (6.4-8.3)
[2020-01-25 05:05] LABS: Platelet Count 72 T/CUMM (130-400)
[2020-01-25] MEDS: THEOPHYLLINE 5.33 MG/ML 30 ML/BOTTLE PER TUBE SCH ×2 (05:06→09:21)
[2020-01-25 05:09] LABS: Platelet Estimate Decreased
[2020-01-25] MEDS: POTASSIUM CHLORIDE RIDER 20 MEQ in PREMIX 1 EACH IV PRN (05:59)
[2020-01-25] MEDS: LEVALBUTEROL 1.25 MG/3 ML NEB RESP TX SCH ×3 (07:23→19:55)
[2020-01-25] MEDS: NICOTINE 14 MG/24 HR PATCH TRANSDERM SCH (09:28)
[2020-01-25] MEDS: FUROSEMIDE 20 MG TABLET PO SCH ×2 (09:28→15:48)
[2020-01-25] MEDS: METOPROLOL TARTRATE 25 MG TABLET PO SCH ×3 (09:28→21:42)
[2020-01-25] MEDS: GLIMEPIRIDE 2 MG TABLET PO SCH (09:28)
[2020-01-25] MEDS: fentaNYL INJ 1,250 MCG in SODIUM CHLORIDE 0.9% 225 ML IV PRN (10:15)
[2020-01-25] MEDS: DEXTROSE 5% 1,000 ML IV SCH (12:38)
[2020-01-25] MEDS: OCTREOTIDE 500 MCG in SODIUM CHLORIDE 0.9% 100 ML IV SCH (14:05)
[2020-01-25] MEDS: LEVOFLOXACIN INJ 500 MG in PREMIX 1 EACH IV SCH (14:05)
[2020-01-25 14:43] LABS: Hemoglobin 10.8 GM/DL (12.0-16.0)
[2020-01-25] MEDS: BUDESONIDE 0.5 MG/2 ML NEB RESP TX SCH (19:55)
[2020-01-25 19:59] LABS: Hematocrit 33.3 VOL% (35.7-47.0); Hemoglobin 10.8 GM/DL (12.0-16.0)
[2020-01-25] MEDS: ROSUVASTATIN 20 MG TABLET PO SCH (21:40)
[2020-01-25] MEDS: RIFAXIMIN 550 MG TABLET PO SCH (21:41)
[2020-01-25] MEDS: MIDAZOLAM 100 MG in SODIUM CHLORIDE 0.9% 80 ML IV PRN (21:47)
[2020-01-25 22:49] LABS: Hematocrit 33.3 VOL% (35.7-47.0); Hemoglobin 10.8 GM/DL (12.0-16.0)
[2020-01-26] MEDS: INSULIN REGULAR 100 UNIT/ML SUBCUT SCH ×4 (00:12→18:14)
[2020-01-26] MEDS: LACTULOSE 20 GM/30 ML UDCUP PO SCH ×6 (01:11→21:05)
[2020-01-26] MEDS: DEXTROSE 5% 1,000 ML IV SCH ×2 (01:13→16:00)
[2020-01-26 04:30] LABS: Basophils % 0.1 % (0.0-0.8); Hematocrit 32.5 VOL% (35.7-47.0); Hemoglobin 10.7 GM/DL (12.0-16.0); Immature Granulocytes % 0.7 %; Lymphocytes # 1.9 10*3/uL (1.4-4.0); Lymphocytes % 13.2 % (21.3-54.2); Mean Corpuscular HGB Conc 32.9 GM/DL (32-36); Mean Corpuscular Volume 93.7 FL (87-102); Mean Platelet Volume 11.5 FL (9.6-12.0); Monocytes % 9.6 % (1.7-12.7); NRBC # 0.05 10*3/uL; Neutrophils % 76.4 % (38.7-73.9); Red Blood Count 3.47 MC/CUMM (3.8-5.5); Red Cell Distribution Width 17.3 % (9.3-17.3); White Blood Count 14.1 T/CUMM (4-12)
[2020-01-26 04:32] LABS: Platelet Count 85 T/CUMM (130-400)
[2020-01-26] MEDS ORDERED: LORazepam 2 MG/1 ML VIAL IV ONE ×2 (04:32→16:05)
[2020-01-26] MEDS: PANTOPRAZOLE INJ 200 MG in SODIUM CHLORIDE 0.9% 250 ML IV SCH (04:33)
[2020-01-26 04:35] LABS: ABG Base Excess -3.1 MMOL/L (-2.5-2.5); ABG HCO3 21.8 MMOL/L (20-26); ABG Oxygen Saturation 95.1 % (95-100); ABG PCO2 46.5 MM HG (35-48); ABG PO2 76.7 MM HG (80-95); ABG TCO2 21.2 MMOL/L (23-27)
[2020-01-26 04:38] LABS: INR 1.2; PT Patient Result 13.4 SECS (9.6-12.2)
[2020-01-26] MEDS: fentaNYL INJ 1,250 MCG in SODIUM CHLORIDE 0.9% 225 ML IV PRN (04:39)
[2020-01-26 04:45] LABS: Osmolality,Calculated 316.1 MOS/KG (273-304)
[2020-01-26 05:28] LABS: Platelet Estimate Decreased
[2020-01-26] MEDS: BUDESONIDE 0.5 MG/2 ML NEB RESP TX SCH ×2 (07:41→19:20)
[2020-01-26] MEDS: LEVALBUTEROL 1.25 MG/3 ML NEB RESP TX SCH ×3 (07:41→23:18)
[2020-01-26] MEDS: METOPROLOL TARTRATE 25 MG TABLET PO SCH ×3 (08:07→18:12)
[2020-01-26] MEDS ORDERED: LORazepam 2 MG/1 ML VIAL ONE ×2 (09:12→16:04)
[2020-01-26] MEDS ORDERED: LORazepam 2 MG/1 ML VIAL IV PRN ×2 (09:18→16:36)
[2020-01-26] MEDS ORDERED: THIAMINE 200 MG/2 ML VIAL IV ONE (09:20)
[2020-01-26] MEDS: RIFAXIMIN 550 MG TABLET PO SCH ×2 (09:44→20:12)
[2020-01-26] MEDS: NICOTINE 14 MG/24 HR PATCH TRANSDERM SCH (09:49)
[2020-01-26] MEDS: OCTREOTIDE 500 MCG in SODIUM CHLORIDE 0.9% 100 ML IV SCH (10:08)
[2020-01-26] MEDS: FOLIC ACID INJ 1 MG in SYRINGE 1 EACH IV SCH (11:07)
[2020-01-26] MEDS: LEVOFLOXACIN INJ 500 MG in PREMIX 1 EACH IV SCH (13:09)
[2020-01-26] MEDS ORDERED: DEXTROSE 5% NACL 0.45% 1,000 ML IV SCH (13:30)
[2020-01-26] MEDS: POTASSIUM CHLORIDE RIDER 20 MEQ in PREMIX 1 EACH IV PRN (13:52)
[2020-01-26] MEDS: PHENYLEPHRINE DRIP 40 MG/250 ML PREMIX IV PRN (14:02)
[2020-01-26 18:45] LABS: Calcium 7.7 MG/DL (8.5-10.1); Osmolality,Calculated 313.4 MOS/KG (273-304)
[2020-01-26] MEDS: ROSUVASTATIN 20 MG TABLET PO SCH (20:12)
[2020-01-27] MEDS: INSULIN REGULAR 100 UNIT/ML SUBCUT SCH ×4 (00:05→19:05)
[2020-01-27] MEDS: METOPROLOL TARTRATE 25 MG TABLET PO SCH ×4 (00:07→17:45)
[2020-01-27] MEDS: DEXTROSE 5% 1,000 ML IV SCH ×2 (01:05→16:05)
[2020-01-27] MEDS: LACTULOSE 20 GM/30 ML UDCUP PO SCH ×4 (01:38→21:38)
[2020-01-27 04:07] LABS: Allen Test Positive; Pt O2 Delivery Device Ventilator
[2020-01-27 04:11] LABS: Basophils % 0.3 % (0.0-0.8); Eosinophils % 0.1 % (0.00-10.9); Hemoglobin 10.4 GM/DL (12.0-16.0); Immature Granulocytes % 0.8 %; Immature Granulocytes Absolute 0.11 #; Lymphocytes # 2.6 10*3/uL (1.4-4.0); Lymphocytes % 18.7 % (21.3-54.2); Mean Corpuscular HGB Conc 31.5 GM/DL (32-36); Mean Corpuscular Volume 97.1 FL (87-102); Mean Platelet Volume 11.6 FL (9.6-12.0); Monocytes % 13.6 % (1.7-12.7); NRBC # 0.03 10*3/uL; Neutrophils % 66.5 % (38.7-73.9); Platelet Count 100 T/CUMM (130-400); Red Cell Distribution Width 18.8 % (9.3-17.3)
[2020-01-27 04:12] LABS: ABG Base Excess -4.3 MMOL/L (-2.5-2.5); ABG HCO3 20.8 MMOL/L (20-26); ABG Oxygen Saturation 95.9 % (95-100); ABG PCO2 38.8 MM HG (35-48); ABG PH 7.342 (7.35-7.45); ABG PO2 78.2 MM HG (80-95); ABG TCO2 19.1 MMOL/L (23-27)
[2020-01-27 04:36] LABS: Calcium 8.1 MG/DL (8.5-10.1); Osmolality,Calculated 316.9 MOS/KG (273-304)
[2020-01-27] MEDS: MIDAZOLAM 100 MG in SODIUM CHLORIDE 0.9% 80 ML IV PRN (04:51)
[2020-01-27] MEDS: POTASSIUM CHLORIDE RIDER 20 MEQ in PREMIX 1 EACH IV PRN ×2 (06:08→08:10)
[2020-01-27] MEDS: OCTREOTIDE 500 MCG in SODIUM CHLORIDE 0.9% 100 ML IV SCH (06:35)
[2020-01-27] MEDS: LEVALBUTEROL 1.25 MG/3 ML NEB RESP TX SCH ×3 (07:59→23:10)
[2020-01-27] MEDS: BUDESONIDE 0.5 MG/2 ML NEB RESP TX SCH ×2 (07:59→23:10)
[2020-01-27] MEDS: PANTOPRAZOLE 40 MG VIAL IV SCH ×2 (08:51→21:38)
[2020-01-27] MEDS: THIAMINE 200 MG/2 ML VIAL IV SCH (08:53)
[2020-01-27] MEDS: LACTATED RINGERS 1,000 ML IV SCH (12:54)
[2020-01-27] MEDS: RIFAXIMIN 550 MG TABLET PO SCH ×2 (13:17→21:38)
[2020-01-27] MEDS: FOLIC ACID INJ 1 MG in SYRINGE 1 EACH IV SCH (13:18)
[2020-01-27] MEDS: ASPIRIN EC 81 MG TABLET PO SCH (13:19)
[2020-01-27] MEDS: LEVOFLOXACIN INJ 500 MG in PREMIX 1 EACH IV SCH (13:19)
[2020-01-27] MEDS: INSULIN GLARGINE 100 UNIT/ML SUBCUT SCH (16:00)
[2020-01-27] MEDS: ROSUVASTATIN 20 MG TABLET PO SCH (21:41)
[2020-01-28] MEDS: INSULIN REGULAR 100 UNIT/ML SUBCUT SCH ×4 (00:13→19:27)
[2020-01-28] MEDS: METOPROLOL TARTRATE 25 MG TABLET PO SCH ×4 (00:13→17:15)
[2020-01-28] MEDS: MIDAZOLAM 100 MG in SODIUM CHLORIDE 0.9% 80 ML IV PRN (04:16)
[2020-01-28 04:47] LABS: ABG Base Excess -3.4 MMOL/L (-2.5-2.5); ABG HCO3 20.1 MMOL/L (20-26); ABG Oxygen Saturation 97.7 % (95-100); ABG PCO2 30.7 MM HG (35-48); ABG PH 7.434 (7.35-7.45); Allen Test Positive; Pt O2 Delivery Device Ventilator
[2020-01-28] MEDS: DEXTROSE 5% 1,000 ML IV SCH ×4 (05:27→21:01)
[2020-01-28 05:34] LABS: Basophils % 0.1 % (0.0-0.8); Eosinophils # 0.2 10*3/uL (0.0-0.87); Eosinophils % 1.9 % (0.00-10.9); Hematocrit 29.1 VOL% (35.7-47.0); Hemoglobin 9.1 GM/DL (12.0-16.0); Immature Granulocytes % 0.6 %; Immature Granulocytes Absolute 0.05 #; Lymphocytes # 1.8 10*3/uL (1.4-4.0); Lymphocytes % 22.5 % (21.3-54.2); Mean Corpuscular HGB Conc 31.3 GM/DL (32-36); Mean Platelet Volume 11.3 FL (9.6-12.0); Monocytes % 14.5 % (1.7-12.7); Neutrophils % 60.4 % (38.7-73.9); Red Blood Count 2.97 MC/CUMM (3.8-5.5); Red Cell Distribution Width 18.6 % (9.3-17.3)
[2020-01-28 05:38] LABS: Platelet Count 77 T/CUMM (130-400); White Blood Count 7.8 T/CUMM (4-12)
[2020-01-28 05:40] LABS: Osmolality,Calculated 302.3 MOS/KG (273-304); Prealbumin 9.1 MG/DL (20-40)
[2020-01-28 05:45] LABS: Osmolality,Calculated 303.3 MOS/KG (273-304)
[2020-01-28 06:01] LABS: Hypochromasia 1+; Platelet Estimate Decreased
[2020-01-28] MEDS: LEVALBUTEROL 1.25 MG/3 ML NEB RESP TX SCH ×2 (07:20→15:51)
[2020-01-28] MEDS: BUDESONIDE 0.5 MG/2 ML NEB RESP TX SCH ×2 (07:20→19:48)
[2020-01-28] MEDS: RIFAXIMIN 550 MG TABLET PO SCH ×2 (09:47→21:00)
[2020-01-28] MEDS: ASPIRIN EC 81 MG TABLET PO SCH (09:47)
[2020-01-28] MEDS: LACTULOSE 20 GM/30 ML UDCUP PO SCH ×2 (09:47→10:18)
[2020-01-28] MEDS: PANTOPRAZOLE 40 MG VIAL IV SCH ×2 (09:49→20:59)
[2020-01-28] MEDS: THIAMINE 200 MG/2 ML VIAL IV SCH (09:53)
[2020-01-28] MEDS: POTASSIUM CHLORIDE RIDER 20 MEQ in PREMIX 1 EACH IV PRN (09:56)
[2020-01-28] MEDS: FOLIC ACID INJ 1 MG in SYRINGE 1 EACH IV SCH (09:57)
[2020-01-28] MEDS: LACTATED RINGERS 1,000 ML IV SCH (10:17)
[2020-01-28] MEDS: INSULIN GLARGINE 100 UNIT/ML SUBCUT SCH (10:18)
[2020-01-28] MEDS: POTASSIUM CHLORIDE RIDER 10 MEQ in PREMIX 1 EACH IV PRN (17:45)
[2020-01-28] MEDS: DEXMEDETOMIDINE 200 MCG in SODIUM CHLORIDE 0.9% 48 ML IV PRN (18:09)
[2020-01-28] MEDS: ROSUVASTATIN 20 MG TABLET PO SCH (20:55)
[2020-01-29] MEDS: DEXMEDETOMIDINE 200 MCG in SODIUM CHLORIDE 0.9% 48 ML IV PRN ×5 (00:06→20:54)
[2020-01-29] MEDS: METOPROLOL TARTRATE 25 MG TABLET PO SCH ×5 (00:12→23:35)
[2020-01-29] MEDS: INSULIN REGULAR 100 UNIT/ML SUBCUT SCH ×5 (00:12→23:54)
[2020-01-29] MEDS: LEVALBUTEROL 1.25 MG/3 ML NEB RESP TX SCH ×4 (00:25→23:50)
[2020-01-29] MEDS: DEXTROSE 5% 1,000 ML IV SCH ×4 (03:38→20:54)
[2020-01-29 03:40] LABS: Allen Test Positive; Pt O2 Delivery Device Ventilator
[2020-01-29 03:41] LABS: ABG Base Excess -4.1 MMOL/L (-2.5-2.5); ABG Oxygen Saturation 99.4 % (95-100); ABG PCO2 33.4 MM HG (35-48); ABG TCO2 18.7 MMOL/L (23-27)
[2020-01-29 04:29] LABS: Basophils % 0.2 % (0.0-0.8); Eosinophils # 0.2 10*3/uL (0.0-0.87); Eosinophils % 2.7 % (0.00-10.9); Hematocrit 26.9 VOL% (35.7-47.0); Hemoglobin 8.5 GM/DL (12.0-16.0); Immature Granulocytes % 1.4 %; Immature Granulocytes Absolute 0.08 #; Lymphocytes # 1.3 10*3/uL (1.4-4.0); Lymphocytes % 23.6 % (21.3-54.2); Mean Corpuscular HGB Conc 31.6 GM/DL (32-36); Mean Corpuscular Volume 97.1 FL (87-102); Mean Platelet Volume 11.2 FL (9.6-12.0); Monocytes % 16.4 % (1.7-12.7); Neutrophils % 55.7 % (38.7-73.9); Platelet Count 62 T/CUMM (130-400); Red Blood Count 2.77 MC/CUMM (3.8-5.5); Red Cell Distribution Width 17.2 % (9.3-17.3); White Blood Count 5.5 T/CUMM (4-12)
[2020-01-29 04:43] LABS: Calcium 7.9 MG/DL (8.5-10.1); Osmolality,Calculated 286.7 MOS/KG (273-304)
[2020-01-29 04:56] LABS: Band Neutrophils 1 % (0-10); Eosinophils 2 % (0-10); Hypochromasia 1+; Lymphocytes 19 % (20-55); Ovalocytes Slight; Platelet Estimate Decreased; Segmented Neutrophils 65 % (50-85); Total Cells Counted 100
[2020-01-29] MEDS: BUDESONIDE 0.5 MG/2 ML NEB RESP TX SCH ×2 (08:24→19:10)
[2020-01-29] MEDS: LACTATED RINGERS 1,000 ML IV SCH (08:35)
[2020-01-29] MEDS: TICAGRELOR 90 MG TABLET PO SCH ×2 (08:37→20:43)
[2020-01-29] MEDS: RIFAXIMIN 550 MG TABLET PO SCH ×2 (08:37→20:43)
[2020-01-29] MEDS: ASPIRIN EC 81 MG TABLET PO SCH (08:37)
[2020-01-29] MEDS: LACTULOSE 20 GM/30 ML UDCUP PO SCH (08:37)
[2020-01-29] MEDS: THIAMINE 200 MG/2 ML VIAL IV SCH (08:41)
[2020-01-29] MEDS: PANTOPRAZOLE 40 MG VIAL IV SCH ×2 (08:47→20:41)
[2020-01-29] MEDS: FOLIC ACID INJ 1 MG in SYRINGE 1 EACH IV SCH (08:50)
[2020-01-29] MEDS: INSULIN GLARGINE 100 UNIT/ML SUBCUT SCH (11:19)
[2020-01-29] MEDS ORDERED: MAGNESIUM HYDROXIDE SUSP 30 ML UDCUP PO PRN (16:45)
[2020-01-29 18:05] LABS: Hematocrit 27.5 VOL% (35.7-47.0); Hemoglobin 9.2 GM/DL (12.0-16.0)
[2020-01-29] MEDS: ROSUVASTATIN 20 MG TABLET PO SCH (20:42)
[2020-01-30] MEDS: DEXMEDETOMIDINE 200 MCG in SODIUM CHLORIDE 0.9% 48 ML IV PRN ×5 (02:14→23:00)
[2020-01-30 03:48] LABS: ABG Base Excess -3.9 MMOL/L (-2.5-2.5); ABG HCO3 19.9 MMOL/L (20-26); ABG Oxygen Saturation 97.8 % (95-100); ABG PCO2 31.5 MM HG (35-48); ABG PH 7.419 (7.35-7.45); ABG PO2 114.7 MM HG (80-95); ABG TCO2 20.9 MMOL/L (23-27); Allen Test Positive; Pt O2 Delivery Device Ventilator
[2020-01-30 04:13] LABS: Basophils % 0.3 % (0.0-0.8); Eosinophils # 0.1 10*3/uL (0.0-0.87); Eosinophils % 2.3 % (0.00-10.9); Hemoglobin 9.1 GM/DL (12.0-16.0); Immature Granulocytes % 1.4 %; Immature Granulocytes Absolute 0.05 #; Lymphocytes # 0.7 10*3/uL (1.4-4.0); Lymphocytes % 20.3 % (21.3-54.2); Mean Corpuscular HGB Conc 32.5 GM/DL (32-36); Monocytes % 15.1 % (1.7-12.7); Neutrophils % 60.6 % (38.7-73.9); Red Blood Count 2.98 MC/CUMM (3.8-5.5); Red Cell Distribution Width 15.9 % (9.3-17.3); White Blood Count 3.5 T/CUMM (4-12)
[2020-01-30 04:18] LABS: Platelet Count 68 T/CUMM (130-400)
[2020-01-30 04:27] LABS: Calcium 8.2 MG/DL (8.5-10.1); Osmolality,Calculated 282.8 MOS/KG (273-304)
[2020-01-30 04:33] LABS: Platelet Estimate Decreased
[2020-01-30] MEDS: DEXTROSE 5% 1,000 ML IV SCH ×2 (05:52→06:54)
[2020-01-30] MEDS: METOPROLOL TARTRATE 25 MG TABLET PO SCH ×3 (05:52→17:41)
[2020-01-30] MEDS: INSULIN REGULAR 100 UNIT/ML SUBCUT SCH ×3 (05:52→17:58)
[2020-01-30] MEDS: POTASSIUM CHLORIDE RIDER 20 MEQ in PREMIX 1 EACH IV PRN ×2 (05:53→10:40)
[2020-01-30] MEDS: LEVALBUTEROL 1.25 MG/3 ML NEB RESP TX SCH ×3 (07:24→22:50)
[2020-01-30] MEDS: BUDESONIDE 0.5 MG/2 ML NEB RESP TX SCH ×2 (07:24→19:26)
[2020-01-30] MEDS: LACTATED RINGERS 1,000 ML IV SCH (08:07)
[2020-01-30] MEDS: INSULIN GLARGINE 100 UNIT/ML SUBCUT SCH (10:21)
[2020-01-30] MEDS: ASPIRIN EC 81 MG TABLET PO SCH (10:22)
[2020-01-30] MEDS: TICAGRELOR 90 MG TABLET PO SCH ×2 (10:22→20:37)
[2020-01-30] MEDS: RIFAXIMIN 550 MG TABLET PO SCH ×2 (10:22→20:36)
[2020-01-30] MEDS: THIAMINE 200 MG/2 ML VIAL IV SCH (10:22)
[2020-01-30] MEDS: PANTOPRAZOLE 40 MG VIAL IV SCH ×2 (10:24→20:35)
[2020-01-30] MEDS: FOLIC ACID INJ 1 MG in SYRINGE 1 EACH IV SCH (10:26)
[2020-01-30] MEDS: METOCLOPRAMIDE 10 MG/2 ML VIAL IV SCH ×3 (10:28→20:33)
[2020-01-30] MEDS: LACTULOSE 20 GM/30 ML UDCUP PO SCH (10:30)
[2020-01-30] MEDS: ROSUVASTATIN 20 MG TABLET PO SCH (20:36)
[2020-01-31] MEDS: INSULIN REGULAR 100 UNIT/ML SUBCUT SCH ×4 (00:24→18:06)
[2020-01-31] MEDS: METOPROLOL TARTRATE 25 MG TABLET PO SCH ×2 (00:25→05:46)
[2020-01-31 03:44] LABS: ABG Base Excess -2.3 MMOL/L (-2.5-2.5); ABG HCO3 22.5 MMOL/L (20-26); ABG Oxygen Saturation 98.6 % (95-100); ABG PCO2 31.4 MM HG (35-48); ABG PH 7.437 (7.35-7.45); ABG TCO2 19.3 MMOL/L (23-27)
[2020-01-31 03:58] LABS: Basophils % 0.2 % (0.0-0.8); Eosinophils # 0.1 10*3/uL (0.0-0.87); Eosinophils % 1.7 % (0.00-10.9); Hematocrit 28.9 VOL% (35.7-47.0); Hemoglobin 9.2 GM/DL (12.0-16.0); Immature Granulocytes % 1.2 %; Immature Granulocytes Absolute 0.07 #; Lymphocytes # 0.8 10*3/uL (1.4-4.0); Lymphocytes % 14.6 % (21.3-54.2); Mean Corpuscular HGB Conc 31.8 GM/DL (32-36); Mean Corpuscular Volume 95.1 FL (87-102); Mean Platelet Volume 11.5 FL (9.6-12.0); Monocytes % 11.8 % (1.7-12.7); Neutrophils % 70.5 % (38.7-73.9); Platelet Count 90 T/CUMM (130-400); Red Blood Count 3.04 MC/CUMM (3.8-5.5); White Blood Count 5.7 T/CUMM (4-12)
[2020-01-31] MEDS: METOCLOPRAMIDE 10 MG/2 ML VIAL IV SCH ×4 (04:05→20:25)
[2020-01-31 04:06] LABS: Calcium 8.1 MG/DL (8.5-10.1); Osmolality,Calculated 283.5 MOS/KG (273-304)
[2020-01-31 04:29] LABS: Platelet Estimate Decreased
[2020-01-31] MEDS: DEXMEDETOMIDINE 200 MCG in SODIUM CHLORIDE 0.9% 48 ML IV PRN ×4 (05:54→20:35)
[2020-01-31] MEDS: LEVALBUTEROL 1.25 MG/3 ML NEB RESP TX SCH ×3 (08:12→23:50)
[2020-01-31] MEDS: BUDESONIDE 0.5 MG/2 ML NEB RESP TX SCH ×2 (08:12→23:50)
[2020-01-31] MEDS: POTASSIUM CHLORIDE 20 MEQ/15 ML UDCUP PER TUBE PRN ×2 (09:14→12:43)
[2020-01-31] MEDS: INSULIN GLARGINE 100 UNIT/ML SUBCUT SCH (09:15)
[2020-01-31] MEDS: THIAMINE 200 MG/2 ML VIAL IV SCH (09:17)
[2020-01-31] MEDS: PANTOPRAZOLE 40 MG VIAL IV SCH ×2 (09:17→20:25)
[2020-01-31] MEDS: TICAGRELOR 90 MG TABLET PO SCH ×2 (09:20→20:25)
[2020-01-31] MEDS: LACTULOSE 20 GM/30 ML UDCUP PO SCH (09:20)
[2020-01-31] MEDS: METOPROLOL SUCCINATE XL 25 MG TABLET PO SCH ×2 (09:21→22:52)
[2020-01-31] MEDS: ASPIRIN EC 81 MG TABLET PO SCH (09:21)
[2020-01-31] MEDS: FOLIC ACID INJ 1 MG in SYRINGE 1 EACH IV SCH (09:21)
[2020-01-31] MEDS: RIFAXIMIN 550 MG TABLET PO SCH ×2 (09:21→20:24)
[2020-01-31] MEDS ORDERED: PHENYLEPHRINE DRIP 40 MG/250 ML PREMIX IV ONE (13:54)
[2020-01-31] MEDS: PHENYLEPHRINE DRIP 40 MG/250 ML PREMIX IV PRN (13:57)
[2020-01-31] MEDS: ROSUVASTATIN 20 MG TABLET PO SCH (20:24)
[2020-02-01] MEDS: INSULIN REGULAR 100 UNIT/ML SUBCUT SCH ×4 (00:01→18:42)
[2020-02-01] MEDS: DEXMEDETOMIDINE 200 MCG in SODIUM CHLORIDE 0.9% 48 ML IV PRN ×4 (00:45→20:42)
[2020-02-01] MEDS: METOCLOPRAMIDE 10 MG/2 ML VIAL IV SCH ×4 (02:51→20:47)
[2020-02-01 04:58] LABS: ABG Base Excess -2.2 MMOL/L (-2.5-2.5); ABG HCO3 22.6 MMOL/L (20-26); ABG Oxygen Saturation 98.8 % (95-100); ABG PCO2 33.8 MM HG (35-48); ABG PH 7.412 (7.35-7.45); ABG TCO2 18.3 MMOL/L (23-27); Allen Test Positive; Pt O2 Delivery Device Ventilator
[2020-02-01 05:30] LABS: Basophils % 0.2 % (0.0-0.8); Eosinophils # 0.1 10*3/uL (0.0-0.87); Eosinophils % 1.8 % (0.00-10.9); Hemoglobin 9.5 GM/DL (12.0-16.0); Immature Granulocytes % 1.4 %; Immature Granulocytes Absolute 0.09 #; Lymphocytes # 1.2 10*3/uL (1.4-4.0); Lymphocytes % 18.8 % (21.3-54.2); Mean Corpuscular HGB Conc 32.8 GM/DL (32-36); Mean Corpuscular Volume 92.4 FL (87-102); Mean Platelet Volume 11.1 FL (9.6-12.0); Monocytes % 9.7 % (1.7-12.7); Neutrophils % 68.1 % (38.7-73.9); Platelet Count 103 T/CUMM (130-400); Red Blood Count 3.14 MC/CUMM (3.8-5.5); Red Cell Distribution Width 16.1 % (9.3-17.3); White Blood Count 6.3 T/CUMM (4-12)
[2020-02-01 06:05] LABS: Calcium 8.3 MG/DL (8.5-10.1); Osmolality,Calculated 287.4 MOS/KG (273-304)
[2020-02-01 06:11] LABS: Anisocytosis 1+; Band Neutrophils 10 % (0-10); Eosinophils 3 % (0-10); Lymphocytes 17 % (20-55); Platelet Estimate Adequate; Segmented Neutrophils 61 % (50-85); Total Cells Counted 100
[2020-02-01 06:12] LABS: Macrocytosis Slight
[2020-02-01] MEDS: LEVALBUTEROL 1.25 MG/3 ML NEB RESP TX SCH ×3 (07:51→23:58)
[2020-02-01] MEDS: BUDESONIDE 0.5 MG/2 ML NEB RESP TX SCH ×2 (07:52→23:58)
[2020-02-01] MEDS: RIFAXIMIN 550 MG TABLET PO SCH ×2 (09:07→20:48)
[2020-02-01] MEDS: METOPROLOL SUCCINATE XL 25 MG TABLET PO SCH ×2 (09:09→20:48)
[2020-02-01] MEDS: TICAGRELOR 90 MG TABLET PO SCH ×2 (09:09→20:47)
[2020-02-01] MEDS: LACTULOSE 20 GM/30 ML UDCUP PO SCH (09:09)
[2020-02-01] MEDS: ASPIRIN EC 81 MG TABLET PO SCH (09:09)
[2020-02-01] MEDS: PANTOPRAZOLE 40 MG VIAL IV SCH ×2 (09:10→20:46)
[2020-02-01] MEDS: THIAMINE 200 MG/2 ML VIAL IV SCH (09:12)
[2020-02-01] MEDS: INSULIN GLARGINE 100 UNIT/ML SUBCUT SCH (09:12)
[2020-02-01] MEDS: FOLIC ACID INJ 1 MG in SYRINGE 1 EACH IV SCH (09:15)
[2020-02-01] MEDS: ROSUVASTATIN 20 MG TABLET PO SCH (20:48)
[2020-02-02] MEDS: DEXMEDETOMIDINE 200 MCG in SODIUM CHLORIDE 0.9% 48 ML IV PRN ×2 (00:49→06:01)
[2020-02-02] MEDS: INSULIN REGULAR 100 UNIT/ML SUBCUT SCH ×4 (00:52→18:15)
[2020-02-02 04:37] LABS: ABG Base Excess -0.9 MMOL/L (-2.5-2.5); ABG HCO3 22.3 MMOL/L (20-26); ABG Oxygen Saturation 96.8 % (95-100); ABG PCO2 31.7 MM HG (35-48); ABG PH 7.465 (7.35-7.45); ABG TCO2 23.3 MMOL/L (23-27); Allen Test Positive; Pt O2 Delivery Device Ventilator
[2020-02-02] MEDS: METOCLOPRAMIDE 10 MG/2 ML VIAL IV SCH ×4 (05:04→21:05)
[2020-02-02 05:33] LABS: Basophils % 0.2 % (0.0-0.8); Eosinophils # 0.1 10*3/uL (0.0-0.87); Eosinophils % 1.8 % (0.00-10.9); Hematocrit 26.2 VOL% (35.7-47.0); Hemoglobin 8.3 GM/DL (12.0-16.0); Immature Granulocytes % 1.1 %; Immature Granulocytes Absolute 0.06 #; Lymphocytes # 1.2 10*3/uL (1.4-4.0); Lymphocytes % 20.8 % (21.3-54.2); Mean Corpuscular HGB Conc 31.7 GM/DL (32-36); Mean Corpuscular Volume 95.6 FL (87-102); Mean Platelet Volume 10.8 FL (9.6-12.0); Monocytes % 8.1 % (1.7-12.7); Platelet Count 103 T/CUMM (130-400); Red Blood Count 2.74 MC/CUMM (3.8-5.5); Red Cell Distribution Width 16.3 % (9.3-17.3); White Blood Count 5.7 T/CUMM (4-12)
[2020-02-02 05:43] LABS: Calcium 8.3 MG/DL (8.5-10.1); Osmolality,Calculated 288.3 MOS/KG (273-304)
[2020-02-02] MEDS: BUDESONIDE 0.5 MG/2 ML NEB RESP TX SCH ×2 (07:28→20:10)
[2020-02-02] MEDS: LEVALBUTEROL 1.25 MG/3 ML NEB RESP TX SCH ×3 (07:28→20:10)
[2020-02-02] MEDS: ASPIRIN EC 81 MG TABLET PO SCH (09:44)
[2020-02-02] MEDS: LACTULOSE 20 GM/30 ML UDCUP PO SCH (09:44)
[2020-02-02] MEDS: INSULIN GLARGINE 100 UNIT/ML SUBCUT SCH (09:45)
[2020-02-02] MEDS: METOPROLOL SUCCINATE XL 25 MG TABLET PO SCH ×2 (09:45→21:04)
[2020-02-02] MEDS: FOLIC ACID INJ 1 MG in SYRINGE 1 EACH IV SCH (09:45)
[2020-02-02] MEDS: TICAGRELOR 90 MG TABLET PO SCH ×2 (09:45→21:04)
[2020-02-02] MEDS: POTASSIUM CHLORIDE 20 MEQ/15 ML UDCUP PER TUBE PRN (09:46)
[2020-02-02] MEDS: PANTOPRAZOLE 40 MG VIAL IV SCH ×2 (09:46→21:03)
[2020-02-02] MEDS: THIAMINE 200 MG/2 ML VIAL IV SCH (09:46)
[2020-02-02] MEDS: lisinopriL 10 MG TABLET PO SCH (12:54)
[2020-02-02] MEDS: NICOTINE 21 MG/24 HR PATCH TRANSDERM SCH (12:54)
[2020-02-02 13:45] LABS: Hematocrit 29.6 VOL% (35.7-47.0); Hemoglobin 9.5 GM/DL (12.0-16.0)
[2020-02-02] MEDS ORDERED: ALBUTEROL/IPRATROPIUM 3 ML NEB RESP TX PRN (14:29)
[2020-02-02 15:05] LABS: ABG Base Excess -0.4 MMOL/L (-2.5-2.5); ABG HCO3 24.1 MMOL/L (20-26); ABG Oxygen Saturation 96.6 % (95-100); ABG PCO2 32.3 MM HG (35-48); ABG PH 7.458 (7.35-7.45); ABG PO2 79.2 MM HG (80-95); ABG TCO2 20.7 MMOL/L (23-27); Allen Test Positive
[2020-02-02] MEDS ORDERED: FLUCONAZOLE 150 MG TABLET PO ONE (17:00)
[2020-02-02] MEDS: PROPRANOLOL 20 MG TABLET PO SCH ×2 (17:15→21:04)
[2020-02-02] MEDS: diphenhydrAMINE CAP 25 MG CAPSULE PO PRN (21:04)
[2020-02-02] MEDS: ROSUVASTATIN 20 MG TABLET PO SCH (21:04)
[2020-02-02] MEDS: BENZONATATE 100 MG CAPSULE PO PRN (21:04)
[2020-02-03] MEDS: LEVALBUTEROL 1.25 MG/3 ML NEB RESP TX SCH ×6 (00:24→20:06)
[2020-02-03] MEDS: INSULIN REGULAR 100 UNIT/ML SUBCUT SCH ×4 (02:01→17:25)
[2020-02-03] MEDS: METOCLOPRAMIDE 10 MG/2 ML VIAL IV SCH ×4 (03:46→21:24)
[2020-02-03 04:34] LABS: Basophils % 0.3 % (0.0-0.8); Eosinophils # 0.2 10*3/uL (0.0-0.87); Eosinophils % 1.9 % (0.00-10.9); Hematocrit 28.3 VOL% (35.7-47.0); Hemoglobin 9.3 GM/DL (12.0-16.0); Immature Granulocytes % 0.9 %; Lymphocytes % 18.6 % (21.3-54.2); Mean Corpuscular HGB Conc 32.9 GM/DL (32-36); Mean Corpuscular Volume 93.7 FL (87-102); Mean Platelet Volume 10.6 FL (9.6-12.0); Monocytes % 7.6 % (1.7-12.7); Neutrophils % 70.7 % (38.7-73.9); Platelet Count 138 T/CUMM (130-400); Red Blood Count 3.02 MC/CUMM (3.8-5.5); Red Cell Distribution Width 16.4 % (9.3-17.3); White Blood Count 10.9 T/CUMM (4-12)
[2020-02-03 05:08] LABS: Calcium 7.9 MG/DL (8.5-10.1); Prealbumin 7.9 MG/DL (20-40)
[2020-02-03] MEDS: BUDESONIDE 0.5 MG/2 ML NEB RESP TX SCH ×2 (08:15→20:06)
[2020-02-03] MEDS: INSULIN GLARGINE 100 UNIT/ML SUBCUT SCH (10:00)
[2020-02-03] MEDS: NICOTINE 21 MG/24 HR PATCH TRANSDERM SCH (10:00)
[2020-02-03] MEDS: PANTOPRAZOLE 40 MG VIAL IV SCH ×2 (10:01→21:24)
[2020-02-03] MEDS: THIAMINE 200 MG/2 ML VIAL IV SCH (10:01)
[2020-02-03] MEDS: LACTULOSE 20 GM/30 ML UDCUP PO SCH (10:01)
[2020-02-03] MEDS: TICAGRELOR 90 MG TABLET PO SCH ×2 (10:02→21:24)
[2020-02-03] MEDS: FOLIC ACID INJ 1 MG in SYRINGE 1 EACH IV SCH (10:02)
[2020-02-03] MEDS: lisinopriL 10 MG TABLET PO SCH (10:02)
[2020-02-03] MEDS: ASPIRIN EC 81 MG TABLET PO SCH (10:02)
[2020-02-03] MEDS: METOPROLOL SUCCINATE XL 25 MG TABLET PO SCH ×2 (10:02→21:24)
[2020-02-03] MEDS: PROPRANOLOL 20 MG TABLET PO SCH ×2 (10:02→21:24)
[2020-02-03] MEDS: DESITIN 4OZ/NYSTATIN 15 GRAM MIXTURE PASTE TOP SCH ×2 (15:56→21:26)
[2020-02-03 18:06] LABS: Hematocrit 29.6 VOL% (35.7-47.0); Hemoglobin 9.4 GM/DL (12.0-16.0)
[2020-02-03] MEDS: ROSUVASTATIN 20 MG TABLET PO SCH (21:23)
[2020-02-03] MEDS: BENZONATATE 100 MG CAPSULE PO PRN (21:24)
[2020-02-03] MEDS: diphenhydrAMINE CAP 25 MG CAPSULE PO PRN (21:24)
[2020-02-04] MEDS: LEVALBUTEROL 1.25 MG/3 ML NEB RESP TX SCH ×7 (00:17→23:58)
[2020-02-04] MEDS ORDERED: traZODone 50 MG TABLET PO ONE (00:32)
[2020-02-04] MEDS: NITROGLYCERIN SL 0.4 MG TABLET SL PRN ×3 (01:10→01:20)
[2020-02-04] MEDS ORDERED: MORPHINE 4 MG/1 ML VIAL IV PRN (01:13)
[2020-02-04] MEDS ORDERED: DILTIAZEM 25 MG/5 ML VIAL IV ONE (01:20)
[2020-02-04] MEDS ORDERED: DILTIAZEM 50 MG/10 ML VIAL IV ONE (01:24)
[2020-02-04] MEDS ORDERED: dilTIAZem Drip 125 MG/125 ML PREMIX IV SCH (01:30)
[2020-02-04] MEDS ORDERED: SODIUM CHLORIDE 0.9% 1,000 ML IV ONE (01:37)
[2020-02-04] MEDS ORDERED: AMIODARONE INJ 450 MG in DEXTROSE 5% 241 ML IV SCH (02:00)
[2020-02-04 02:05] LABS: Basophils # 0.1 10*3/uL (0.0-0.2); Basophils % 0.4 % (0.0-0.8); Eosinophils # 0.4 10*3/uL (0.0-0.87); Eosinophils % 2.7 % (0.00-10.9); Hematocrit 29.9 VOL% (35.7-47.0); Hemoglobin 9.4 GM/DL (12.0-16.0); Immature Granulocytes Absolute 0.17 #; Lymphocytes # 3.3 10*3/uL (1.4-4.0); Lymphocytes % 20.3 % (21.3-54.2); Mean Corpuscular HGB Conc 31.4 GM/DL (32-36); Mean Corpuscular Volume 96.1 FL (87-102); Mean Platelet Volume 10.4 FL (9.6-12.0); Monocytes % 7.3 % (1.7-12.7); Neutrophils % 68.3 % (38.7-73.9); Platelet Count 232 T/CUMM (130-400); Red Blood Count 3.11 MC/CUMM (3.8-5.5); Red Cell Distribution Width 16.4 % (9.3-17.3); White Blood Count 16.3 T/CUMM (4-12)
[2020-02-04] MEDS ORDERED: KETOROLAC 15 MG/1 ML VIAL IV ONE (02:12)
[2020-02-04] MEDS ORDERED: ALUM/MAG/SIMETH/LIDO VISC 1:1 30 ML BOTTLE PO ONE (02:12)
[2020-02-04] MEDS: PHENYLEPHRINE DRIP 40 MG/250 ML PREMIX IV PRN (02:18)
[2020-02-04] MEDS: LIDOCAINE 5% PATCH TRANSDERM SCH (02:41)
[2020-02-04] MEDS: METOCLOPRAMIDE 10 MG/2 ML VIAL IV SCH ×3 (03:16→15:47)
[2020-02-04 04:32] LABS: Basophils # 0.1 10*3/uL (0.0-0.2); Basophils % 0.4 % (0.0-0.8); Eosinophils # 0.4 10*3/uL (0.0-0.87); Eosinophils % 2.2 % (0.00-10.9); Hematocrit 29.8 VOL% (35.7-47.0); Hemoglobin 9.4 GM/DL (12.0-16.0); Immature Granulocytes % 1.3 %; Immature Granulocytes Absolute 0.24 #; Lymphocytes # 2.3 10*3/uL (1.4-4.0); Lymphocytes % 11.9 % (21.3-54.2); Mean Corpuscular HGB Conc 31.5 GM/DL (32-36); Mean Corpuscular Volume 96.1 FL (87-102); Monocytes % 8.7 % (1.7-12.7); Neutrophils % 75.5 % (38.7-73.9); Platelet Count 212 T/CUMM (130-400); Red Cell Distribution Width 16.4 % (9.3-17.3); White Blood Count 19.1 T/CUMM (4-12)
[2020-02-04 05:00] LABS: Calcium 8.2 MG/DL (8.5-10.1); Osmolality,Calculated 288.8 MOS/KG (273-304)
[2020-02-04] MEDS: INSULIN REGULAR 100 UNIT/ML SUBCUT SCH ×5 (07:41→21:48)
[2020-02-04] MEDS: BUDESONIDE 0.5 MG/2 ML NEB RESP TX SCH ×2 (07:43→19:43)
[2020-02-04] MEDS: LACTULOSE 20 GM/30 ML UDCUP PO SCH (08:16)
[2020-02-04] MEDS: INSULIN GLARGINE 100 UNIT/ML SUBCUT SCH (08:16)
[2020-02-04] MEDS: lisinopriL 10 MG TABLET PO SCH (08:16)
[2020-02-04] MEDS: ASPIRIN EC 81 MG TABLET PO SCH (08:16)
[2020-02-04] MEDS: PROPRANOLOL 20 MG TABLET PO SCH ×2 (08:16→21:24)
[2020-02-04] MEDS: TICAGRELOR 90 MG TABLET PO SCH ×2 (08:16→21:47)
[2020-02-04] MEDS: THIAMINE 200 MG/2 ML VIAL IV SCH (08:18)
[2020-02-04] MEDS: PANTOPRAZOLE 40 MG VIAL IV SCH ×2 (08:18→21:26)
[2020-02-04] MEDS: NICOTINE 21 MG/24 HR PATCH TRANSDERM SCH (08:19)
[2020-02-04] MEDS: DESITIN 4OZ/NYSTATIN 15 GRAM MIXTURE PASTE TOP SCH ×2 (08:20→21:55)
[2020-02-04] MEDS: AMIODARONE INJ 450 MG in DEXTROSE 5% 241 ML IV SCH (09:34)
[2020-02-04] MEDS: FOLIC ACID INJ 1 MG in SYRINGE 1 EACH IV SCH (09:34)
[2020-02-04] MEDS: predniSONE 20 MG TABLET PO SCH (17:08)
[2020-02-04] MEDS: ONDANSETRON 4 MG/2 ML VIAL IV PRN (18:47)
[2020-02-04] MEDS: BENZONATATE 100 MG CAPSULE PO PRN (21:24)
[2020-02-04] MEDS: ROSUVASTATIN 20 MG TABLET PO SCH (21:24)
[2020-02-05] MEDS: AMIODARONE INJ 450 MG in DEXTROSE 5% 241 ML IV SCH ×2 (03:38→16:20)
[2020-02-05] MEDS: LEVALBUTEROL 1.25 MG/3 ML NEB RESP TX SCH ×6 (03:42→23:56)
[2020-02-05 04:50] LABS: Basophils % 0.3 % (0.0-0.8); Eosinophils % 0.3 % (0.00-10.9); Hematocrit 25.7 VOL% (35.7-47.0); Hemoglobin 8.6 GM/DL (12.0-16.0); Immature Granulocytes % 0.8 %; Immature Granulocytes Absolute 0.06 #; Lymphocytes # 1.1 10*3/uL (1.4-4.0); Lymphocytes % 14.5 % (21.3-54.2); Mean Corpuscular HGB Conc 33.5 GM/DL (32-36); Mean Corpuscular Volume 93.1 FL (87-102); Monocytes % 6.4 % (1.7-12.7); Neutrophils % 77.7 % (38.7-73.9); Platelet Count 148 T/CUMM (130-400); Red Blood Count 2.76 MC/CUMM (3.8-5.5); White Blood Count 7.7 T/CUMM (4-12)
[2020-02-05 05:07] LABS: Calcium 8.6 MG/DL (8.5-10.1); Osmolality,Calculated 282.4 MOS/KG (273-304)
[2020-02-05] MEDS: BUDESONIDE 0.5 MG/2 ML NEB RESP TX SCH ×2 (07:05→19:06)
[2020-02-05] MEDS: INSULIN REGULAR 100 UNIT/ML SUBCUT SCH ×4 (08:29→21:31)
[2020-02-05] MEDS: FUROSEMIDE 40 MG/4 ML VIAL IV SCH (09:54)
[2020-02-05] MEDS: TICAGRELOR 90 MG TABLET PO SCH ×2 (09:55→21:30)
[2020-02-05] MEDS: levETIRAcetam 500 MG TABLET PO SCH ×2 (09:56→21:30)
[2020-02-05] MEDS: lisinopriL 10 MG TABLET PO SCH (09:56)
[2020-02-05] MEDS: LIDOCAINE 5% PATCH TRANSDERM SCH (09:56)
[2020-02-05] MEDS: predniSONE 20 MG TABLET PO SCH (09:56)
[2020-02-05] MEDS: PROPRANOLOL 20 MG TABLET PO SCH ×2 (09:56→21:30)
[2020-02-05] MEDS: ASPIRIN EC 81 MG TABLET PO SCH (09:56)
[2020-02-05] MEDS: INSULIN GLARGINE 100 UNIT/ML SUBCUT SCH (09:57)
[2020-02-05] MEDS: NICOTINE 21 MG/24 HR PATCH TRANSDERM SCH (09:57)
[2020-02-05] MEDS: PANTOPRAZOLE 40 MG VIAL IV SCH ×2 (09:58→21:31)
[2020-02-05] MEDS: DESITIN 4OZ/NYSTATIN 15 GRAM MIXTURE PASTE TOP SCH ×2 (10:11→21:32)
[2020-02-05] MEDS: LACTULOSE 20 GM/30 ML UDCUP PO SCH (11:26)
[2020-02-05] MEDS ORDERED: AMIODARONE 200 MG TABLET PO ONE (18:30)
[2020-02-05] MEDS: ROSUVASTATIN 20 MG TABLET PO SCH (21:30)
[2020-02-06] MEDS: LEVALBUTEROL 1.25 MG/3 ML NEB RESP TX SCH ×6 (03:34→22:45)
[2020-02-06 04:21] LABS: Basophils % 0.3 % (0.0-0.8); Eosinophils # 0.1 10*3/uL (0.0-0.87); Eosinophils % 0.9 % (0.00-10.9); Hematocrit 24.9 VOL% (35.7-47.0); Immature Granulocytes % 0.4 %; Immature Granulocytes Absolute 0.04 #; Lymphocytes # 2.1 10*3/uL (1.4-4.0); Lymphocytes % 19.6 % (21.3-54.2); Mean Corpuscular HGB Conc 32.1 GM/DL (32-36); Mean Corpuscular Volume 95.4 FL (87-102); Mean Platelet Volume 9.8 FL (9.6-12.0); Monocytes % 9.3 % (1.7-12.7); Neutrophils % 69.5 % (38.7-73.9); Platelet Count 179 T/CUMM (130-400); Red Blood Count 2.61 MC/CUMM (3.8-5.5); Red Cell Distribution Width 16.9 % (9.3-17.3); White Blood Count 10.9 T/CUMM (4-12)
[2020-02-06] MEDS ORDERED: AMIODARONE 150 MG/3 ML VIAL ONE (04:35)
[2020-02-06] MEDS ORDERED: AMIODARONE 450 MG/9 ML VIAL IV ONE (04:35)
[2020-02-06 04:41] LABS: Calcium 8.3 MG/DL (8.5-10.1)
[2020-02-06] MEDS ORDERED: AMIODARONE INJ 150 MG in DEXTROSE 5% 100 ML IV ONE (04:45)
[2020-02-06] MEDS ORDERED: AMIODARONE INJ 450 MG in DEXTROSE 5% 241 ML IV SCH (05:00)
[2020-02-06] MEDS: BUDESONIDE 0.5 MG/2 ML NEB RESP TX SCH ×2 (06:47→19:00)
[2020-02-06] MEDS: PROPRANOLOL 20 MG TABLET PO SCH ×2 (08:41→22:07)
[2020-02-06] MEDS: predniSONE 20 MG TABLET PO SCH (08:41)
[2020-02-06] MEDS: FUROSEMIDE 40 MG/4 ML VIAL IV SCH (08:42)
[2020-02-06] MEDS: ASPIRIN EC 81 MG TABLET PO SCH (08:42)
[2020-02-06] MEDS: LACTULOSE 20 GM/30 ML UDCUP PO SCH (08:42)
[2020-02-06] MEDS: TICAGRELOR 90 MG TABLET PO SCH ×2 (08:42→22:07)
[2020-02-06] MEDS: PANTOPRAZOLE 40 MG VIAL IV SCH ×2 (08:42→22:08)
[2020-02-06] MEDS: lisinopriL 10 MG TABLET PO SCH (08:42)
[2020-02-06] MEDS: AMIODARONE 200 MG TABLET PO SCH ×2 (08:42→22:13)
[2020-02-06] MEDS: POTASSIUM CHLORIDE 20 MEQ/15 ML UDCUP PO PRN ×4 (08:42→15:37)
[2020-02-06] MEDS: INSULIN GLARGINE 100 UNIT/ML SUBCUT SCH (08:43)
[2020-02-06] MEDS: LIDOCAINE 5% PATCH TRANSDERM SCH (08:44)
[2020-02-06] MEDS: NICOTINE 21 MG/24 HR PATCH TRANSDERM SCH (08:50)
[2020-02-06] MEDS: INSULIN REGULAR 100 UNIT/ML SUBCUT SCH ×4 (08:54→22:07)
[2020-02-06] MEDS: DESITIN 4OZ/NYSTATIN 15 GRAM MIXTURE PASTE TOP SCH ×2 (08:55→22:08)
[2020-02-06] MEDS: levETIRAcetam 500 MG TABLET PO SCH ×2 (09:11→22:08)
[2020-02-06] MEDS ORDERED: POTASSIUM CHLORIDE 20 MEQ TABLET PO ONE (09:55)
[2020-02-06] MEDS: AMIODARONE INJ 450 MG in DEXTROSE 5% 241 ML IV SCH (11:00)
[2020-02-06] MEDS: ROSUVASTATIN 20 MG TABLET PO SCH (22:07)
[2020-02-06] MEDS: diphenhydrAMINE CAP 25 MG CAPSULE PO PRN (22:09)
[2020-02-07] MEDS: LEVALBUTEROL 1.25 MG/3 ML NEB RESP TX SCH ×5 (02:05→19:22)
[2020-02-07] MEDS: AMIODARONE INJ 450 MG in DEXTROSE 5% 241 ML IV SCH (04:00)
[2020-02-07 05:39] LABS: Hematocrit 22.7 VOL% (35.7-47.0); Hemoglobin 7.1 GM/DL (12.0-16.0); Immature Granulocytes % 0.4 %; Immature Granulocytes Absolute 0.02 #; Lymphocytes # 0.8 10*3/uL (1.4-4.0); Lymphocytes % 15.8 % (21.3-54.2); Mean Corpuscular HGB Conc 31.3 GM/DL (32-36); Mean Corpuscular Volume 98.7 FL (87-102); Mean Platelet Volume 10.1 FL (9.6-12.0); Neutrophils % 76.8 % (38.7-73.9); Platelet Count 126 T/CUMM (130-400); Red Cell Distribution Width 17.9 % (9.3-17.3); White Blood Count 4.7 T/CUMM (4-12)
[2020-02-07 06:07] LABS: Calcium 8.2 MG/DL (8.5-10.1); Osmolality,Calculated 283.4 MOS/KG (273-304)
[2020-02-07] MEDS: BUDESONIDE 0.5 MG/2 ML NEB RESP TX SCH ×2 (08:15→19:22)
[2020-02-07] MEDS: PROPRANOLOL 20 MG TABLET PO SCH ×2 (08:34→21:15)
[2020-02-07] MEDS: levETIRAcetam 500 MG TABLET PO SCH ×2 (08:34→21:15)
[2020-02-07] MEDS: predniSONE 20 MG TABLET PO SCH (08:34)
[2020-02-07] MEDS: AMIODARONE 200 MG TABLET PO SCH ×2 (08:34→21:15)
[2020-02-07] MEDS: TICAGRELOR 90 MG TABLET PO SCH ×2 (08:34→21:14)
[2020-02-07] MEDS: LACTULOSE 20 GM/30 ML UDCUP PO SCH (08:34)
[2020-02-07] MEDS: ASPIRIN EC 81 MG TABLET PO SCH (08:34)
[2020-02-07] MEDS: NICOTINE 21 MG/24 HR PATCH TRANSDERM SCH (08:35)
[2020-02-07] MEDS: INSULIN GLARGINE 100 UNIT/ML SUBCUT SCH (08:35)
[2020-02-07] MEDS: LIDOCAINE 5% PATCH TRANSDERM SCH (08:36)
[2020-02-07] MEDS: FUROSEMIDE 40 MG/4 ML VIAL IV SCH (08:42)
[2020-02-07] MEDS: PANTOPRAZOLE 40 MG VIAL IV SCH ×2 (08:50→21:15)
[2020-02-07] MEDS: INSULIN REGULAR 100 UNIT/ML SUBCUT SCH ×5 (09:08→21:13)
[2020-02-07] MEDS: DESITIN 4OZ/NYSTATIN 15 GRAM MIXTURE PASTE TOP SCH ×2 (11:19→22:55)
[2020-02-07] MEDS: lisinopriL 10 MG TABLET PO SCH (13:12)
[2020-02-07] MEDS: ROSUVASTATIN 20 MG TABLET PO SCH (21:14)
[2020-02-08] MEDS: LEVALBUTEROL 1.25 MG/3 ML NEB RESP TX SCH ×7 (00:16→22:45)
[2020-02-08] MEDS: BUDESONIDE 0.5 MG/2 ML NEB RESP TX SCH ×2 (07:31→20:37)
[2020-02-08 08:35] LABS: Eosinophils % 0.6 % (0.00-10.9); Hematocrit 24.2 VOL% (35.7-47.0); Hemoglobin 7.7 GM/DL (12.0-16.0); Immature Granulocytes % 0.4 %; Immature Granulocytes Absolute 0.02 #; Lymphocytes % 19.5 % (21.3-54.2); Mean Corpuscular HGB Conc 31.8 GM/DL (32-36); Mean Corpuscular Volume 97.6 FL (87-102); Monocytes % 9.2 % (1.7-12.7); Neutrophils % 70.3 % (38.7-73.9); Platelet Count 125 T/CUMM (130-400); Red Blood Count 2.48 MC/CUMM (3.8-5.5); Red Cell Distribution Width 17.3 % (9.3-17.3); White Blood Count 5.2 T/CUMM (4-12)
[2020-02-08 09:02] LABS: Calcium 8.5 MG/DL (8.5-10.1)
[2020-02-08] MEDS: lisinopriL 10 MG TABLET PO SCH (09:12)
[2020-02-08] MEDS: PROPRANOLOL 20 MG TABLET PO SCH ×2 (09:12→21:00)
[2020-02-08] MEDS: INSULIN REGULAR 100 UNIT/ML SUBCUT SCH ×4 (09:12→21:00)
[2020-02-08] MEDS: AMIODARONE 200 MG TABLET PO SCH ×2 (09:13→21:00)
[2020-02-08] MEDS: levETIRAcetam 500 MG TABLET PO SCH ×2 (09:13→21:00)
[2020-02-08] MEDS: ASPIRIN EC 81 MG TABLET PO SCH (09:13)
[2020-02-08] MEDS: TICAGRELOR 90 MG TABLET PO SCH ×2 (09:13→21:00)
[2020-02-08] MEDS: predniSONE 20 MG TABLET PO SCH (09:13)
[2020-02-08] MEDS: NICOTINE 21 MG/24 HR PATCH TRANSDERM SCH (09:14)
[2020-02-08] MEDS: INSULIN GLARGINE 100 UNIT/ML SUBCUT SCH (09:14)
[2020-02-08] MEDS: LIDOCAINE 5% PATCH TRANSDERM SCH (09:14)
[2020-02-08] MEDS: FUROSEMIDE 40 MG/4 ML VIAL IV SCH (09:19)
[2020-02-08] MEDS: PANTOPRAZOLE 40 MG VIAL IV SCH ×2 (09:22→22:43)
[2020-02-08] MEDS: DESITIN 4OZ/NYSTATIN 15 GRAM MIXTURE PASTE TOP SCH ×2 (09:32→21:00)
[2020-02-08] MEDS: LACTULOSE 20 GM/30 ML UDCUP PO SCH (09:50)
[2020-02-08] MEDS: ROSUVASTATIN 20 MG TABLET PO SCH (21:00)
[2020-02-09] MEDS: LEVALBUTEROL 1.25 MG/3 ML NEB RESP TX SCH ×5 (04:47→19:50)
[2020-02-09 05:53] LABS: Hemoglobin 7.4 GM/DL (12.0-16.0); Immature Granulocytes % 0.3 %; Immature Granulocytes Absolute 0.01 #; Lymphocytes # 0.7 10*3/uL (1.4-4.0); Lymphocytes % 16.9 % (21.3-54.2); Mean Corpuscular HGB Conc 30.8 GM/DL (32-36); Mean Corpuscular Volume 97.6 FL (87-102); Monocytes % 7.8 % (1.7-12.7); Platelet Count 118 T/CUMM (130-400); Red Blood Count 2.46 MC/CUMM (3.8-5.5); Red Cell Distribution Width 17.2 % (9.3-17.3)
[2020-02-09 06:04] LABS: Calcium 8.2 MG/DL (8.5-10.1); Osmolality,Calculated 281.4 MOS/KG (273-304)
[2020-02-09] MEDS: BUDESONIDE 0.5 MG/2 ML NEB RESP TX SCH ×2 (07:10→19:50)
[2020-02-09] MEDS: PROPRANOLOL 20 MG TABLET PO SCH ×2 (08:42→21:04)
[2020-02-09] MEDS: AMIODARONE 200 MG TABLET PO SCH ×2 (08:43→21:04)
[2020-02-09] MEDS: predniSONE 20 MG TABLET PO SCH (08:43)
[2020-02-09] MEDS: lisinopriL 10 MG TABLET PO SCH (08:43)
[2020-02-09] MEDS: LIDOCAINE 5% PATCH TRANSDERM SCH (08:44)
[2020-02-09] MEDS: levETIRAcetam 500 MG TABLET PO SCH ×2 (08:44→21:04)
[2020-02-09] MEDS: TICAGRELOR 90 MG TABLET PO SCH ×2 (08:44→21:05)
[2020-02-09] MEDS: ASPIRIN EC 81 MG TABLET PO SCH (08:44)
[2020-02-09] MEDS: NICOTINE 21 MG/24 HR PATCH TRANSDERM SCH (08:44)
[2020-02-09] MEDS: INSULIN GLARGINE 100 UNIT/ML SUBCUT SCH (08:50)
[2020-02-09] MEDS: FUROSEMIDE 40 MG/4 ML VIAL IV SCH (08:51)
[2020-02-09] MEDS: PANTOPRAZOLE 40 MG VIAL IV SCH ×2 (08:53→21:06)
[2020-02-09] MEDS: LACTULOSE 20 GM/30 ML UDCUP PO SCH (09:32)
[2020-02-09] MEDS: INSULIN REGULAR 100 UNIT/ML SUBCUT SCH ×4 (09:33→21:05)
[2020-02-09] MEDS: DESITIN 4OZ/NYSTATIN 15 GRAM MIXTURE PASTE TOP SCH ×2 (10:06→21:06)
[2020-02-09] MEDS: ROSUVASTATIN 20 MG TABLET PO SCH (21:04)
[2020-02-10] MEDS: LEVALBUTEROL 1.25 MG/3 ML NEB RESP TX SCH ×6 (00:08→20:14)
[2020-02-10] MEDS: BUDESONIDE 0.5 MG/2 ML NEB RESP TX SCH ×2 (07:31→19:23)
[2020-02-10 07:58] LABS: Eosinophils % 0.7 % (0.00-10.9); Hematocrit 24.6 VOL% (35.7-47.0); Hemoglobin 7.7 GM/DL (12.0-16.0); Immature Granulocytes % 0.2 %; Immature Granulocytes Absolute 0.01 #; Lymphocytes # 1.4 10*3/uL (1.4-4.0); Lymphocytes % 29.8 % (21.3-54.2); Mean Corpuscular HGB Conc 31.3 GM/DL (32-36); Mean Corpuscular Volume 97.2 FL (87-102); Mean Platelet Volume 10.1 FL (9.6-12.0); Monocytes % 10.7 % (1.7-12.7); Neutrophils % 58.6 % (38.7-73.9); Platelet Count 127 T/CUMM (130-400); Red Blood Count 2.53 MC/CUMM (3.8-5.5); Red Cell Distribution Width 16.8 % (9.3-17.3); White Blood Count 4.6 T/CUMM (4-12)
[2020-02-10 08:28] LABS: Osmolality,Calculated 278.8 MOS/KG (273-304)
[2020-02-10] MEDS ORDERED: SODIUM CHLORIDE 0.9% 1,000 ML IV PRN (08:45)
[2020-02-10] MEDS: INSULIN REGULAR 100 UNIT/ML SUBCUT SCH ×4 (08:56→21:20)
[2020-02-10] MEDS: FUROSEMIDE 40 MG/4 ML VIAL IV SCH (08:57)
[2020-02-10] MEDS: PANTOPRAZOLE 40 MG VIAL IV SCH ×2 (08:57→21:22)
[2020-02-10] MEDS: LIDOCAINE 5% PATCH TRANSDERM SCH (08:58)
[2020-02-10] MEDS: NICOTINE 21 MG/24 HR PATCH TRANSDERM SCH (08:59)
[2020-02-10] MEDS: ASPIRIN EC 81 MG TABLET PO SCH (09:00)
[2020-02-10] MEDS: TICAGRELOR 90 MG TABLET PO SCH ×2 (09:00→21:21)
[2020-02-10] MEDS: lisinopriL 10 MG TABLET PO SCH (09:02)
[2020-02-10] MEDS: INSULIN GLARGINE 100 UNIT/ML SUBCUT SCH (09:02)
[2020-02-10] MEDS: DESITIN 4OZ/NYSTATIN 15 GRAM MIXTURE PASTE TOP SCH ×2 (09:02→21:22)
[2020-02-10] MEDS: predniSONE 20 MG TABLET PO SCH (09:02)
[2020-02-10] MEDS: levETIRAcetam 500 MG TABLET PO SCH ×2 (09:03→21:21)
[2020-02-10] MEDS: LACTULOSE 20 GM/30 ML UDCUP PO SCH (09:03)
[2020-02-10] MEDS: AMIODARONE 200 MG TABLET PO SCH ×2 (09:03→21:21)
[2020-02-10] MEDS: PROPRANOLOL 20 MG TABLET PO SCH ×2 (09:03→21:21)
[2020-02-10] MEDS: ROSUVASTATIN 20 MG TABLET PO SCH (21:20)
[2020-02-10 22:45] LABS: Hematocrit 29.4 VOL% (35.7-47.0)
[2020-02-10 22:46] LABS: Hemoglobin 9.9 GM/DL (12.0-16.0)
[2020-02-11] MEDS: LEVALBUTEROL 1.25 MG/3 ML NEB RESP TX SCH ×6 (00:09→19:04)
[2020-02-11 04:51] LABS: Basophils % 0.3 % (0.0-0.8); Eosinophils % 0.3 % (0.00-10.9); Hematocrit 28.2 VOL% (35.7-47.0); Hemoglobin 9.8 GM/DL (12.0-16.0); Immature Granulocytes % 0.3 %; Immature Granulocytes Absolute 0.01 #; Lymphocytes # 0.7 10*3/uL (1.4-4.0); Mean Corpuscular HGB Conc 34.8 GM/DL (32-36); Mean Corpuscular Volume 95.9 FL (87-102); Mean Platelet Volume 10.3 FL (9.6-12.0); Monocytes % 10.9 % (1.7-12.7); Neutrophils % 68.2 % (38.7-73.9); Platelet Count 110 T/CUMM (130-400); Red Blood Count 2.94 MC/CUMM (3.8-5.5); Red Cell Distribution Width 18.8 % (9.3-17.3); White Blood Count 3.4 T/CUMM (4-12)
[2020-02-11 05:22] LABS: Calcium 8.3 MG/DL (8.5-10.1); Osmolality,Calculated 280.5 MOS/KG (273-304)
[2020-02-11] MEDS: BUDESONIDE 0.5 MG/2 ML NEB RESP TX SCH ×2 (07:15→19:04)
[2020-02-11] MEDS: INSULIN REGULAR 100 UNIT/ML SUBCUT SCH ×4 (07:46→21:22)
[2020-02-11] MEDS: INSULIN GLARGINE 100 UNIT/ML SUBCUT SCH (08:41)
[2020-02-11] MEDS: FUROSEMIDE 40 MG/4 ML VIAL IV SCH (08:42)
[2020-02-11] MEDS: PANTOPRAZOLE 40 MG VIAL IV SCH ×2 (08:42→21:23)
[2020-02-11] MEDS: predniSONE 20 MG TABLET PO SCH (08:43)
[2020-02-11] MEDS: LACTULOSE 20 GM/30 ML UDCUP PO SCH (08:43)
[2020-02-11] MEDS: lisinopriL 10 MG TABLET PO SCH (08:44)
[2020-02-11] MEDS: TICAGRELOR 90 MG TABLET PO SCH ×2 (08:44→21:21)
[2020-02-11] MEDS: PROPRANOLOL 20 MG TABLET PO SCH ×2 (08:44→21:22)
[2020-02-11] MEDS: AMIODARONE 200 MG TABLET PO SCH ×2 (08:45→21:22)
[2020-02-11] MEDS: NICOTINE 21 MG/24 HR PATCH TRANSDERM SCH (08:45)
[2020-02-11] MEDS: ASPIRIN EC 81 MG TABLET PO SCH (08:45)
[2020-02-11] MEDS: LIDOCAINE 5% PATCH TRANSDERM SCH (08:46)
[2020-02-11] MEDS: levETIRAcetam 500 MG TABLET PO SCH ×2 (08:46→21:21)
[2020-02-11] MEDS: DESITIN 4OZ/NYSTATIN 15 GRAM MIXTURE PASTE TOP SCH ×2 (08:47→21:23)
[2020-02-11] MEDS ORDERED: POTASSIUM CHLORIDE 20 MEQ TABLET PO ONE (08:52)
[2020-02-11] MEDS: POTASSIUM CHLORIDE 20 MEQ/15 ML UDCUP PO PRN ×2 (21:22→23:54)
[2020-02-11] MEDS: ROSUVASTATIN 20 MG TABLET PO SCH (21:22)
[2020-02-12] MEDS: LEVALBUTEROL 1.25 MG/3 ML NEB RESP TX SCH ×6 (00:22→19:08)
[2020-02-12] MEDS: POTASSIUM CHLORIDE 20 MEQ/15 ML UDCUP PO PRN (01:55)
[2020-02-12 04:07] LABS: Basophils % 0.3 % (0.0-0.8); Eosinophils % 0.3 % (0.00-10.9); Hematocrit 29.8 VOL% (35.7-47.0); Hemoglobin 9.7 GM/DL (12.0-16.0); Immature Granulocytes % 0.3 %; Immature Granulocytes Absolute 0.01 #; Lymphocytes # 0.6 10*3/uL (1.4-4.0); Lymphocytes % 16.5 % (21.3-54.2); Mean Corpuscular HGB Conc 32.6 GM/DL (32-36); Mean Corpuscular Volume 97.7 FL (87-102); Mean Platelet Volume 10.2 FL (9.6-12.0); Monocytes % 12.9 % (1.7-12.7); Neutrophils % 69.7 % (38.7-73.9); Platelet Count 118 T/CUMM (130-400); Red Blood Count 3.05 MC/CUMM (3.8-5.5); Red Cell Distribution Width 16.6 % (9.3-17.3); White Blood Count 3.9 T/CUMM (4-12)
[2020-02-12 04:17] LABS: Osmolality,Calculated 279.5 MOS/KG (273-304)
[2020-02-12] MEDS: BUDESONIDE 0.5 MG/2 ML NEB RESP TX SCH ×2 (07:04→19:08)
[2020-02-12] MEDS: INSULIN REGULAR 100 UNIT/ML SUBCUT SCH ×4 (08:46→21:58)
[2020-02-12] MEDS: levETIRAcetam 500 MG TABLET PO SCH ×2 (08:54→21:56)
[2020-02-12] MEDS: ASPIRIN EC 81 MG TABLET PO SCH (08:54)
[2020-02-12] MEDS: predniSONE 20 MG TABLET PO SCH (08:55)
[2020-02-12] MEDS: TICAGRELOR 90 MG TABLET PO SCH ×2 (08:58→21:57)
[2020-02-12] MEDS: lisinopriL 10 MG TABLET PO SCH (08:59)
[2020-02-12] MEDS: AMIODARONE 200 MG TABLET PO SCH ×2 (08:59→21:57)
[2020-02-12] MEDS: PROPRANOLOL 20 MG TABLET PO SCH ×2 (08:59→21:57)
[2020-02-12] MEDS: LACTULOSE 20 GM/30 ML UDCUP PO SCH (09:00)
[2020-02-12] MEDS: NICOTINE 21 MG/24 HR PATCH TRANSDERM SCH (09:00)
[2020-02-12] MEDS: INSULIN GLARGINE 100 UNIT/ML SUBCUT SCH (09:01)
[2020-02-12] MEDS: LIDOCAINE 5% PATCH TRANSDERM SCH (09:01)
[2020-02-12] MEDS: FUROSEMIDE 40 MG/4 ML VIAL IV SCH (09:01)
[2020-02-12] MEDS: DESITIN 4OZ/NYSTATIN 15 GRAM MIXTURE PASTE TOP SCH ×2 (09:02→22:01)
[2020-02-12] MEDS: PANTOPRAZOLE 40 MG VIAL IV SCH ×2 (09:02→21:58)
[2020-02-12] MEDS: ROSUVASTATIN 20 MG TABLET PO SCH (21:56)
[2020-02-12] MEDS: diphenhydrAMINE CAP 25 MG CAPSULE PO PRN (21:57)
[2020-02-13] MEDS: LEVALBUTEROL 1.25 MG/3 ML NEB RESP TX SCH ×4 (00:48→11:10)
[2020-02-13 03:09] LABS: Hemoglobin 10.1 GM/DL (12.0-16.0); Immature Granulocytes % 0.3 %; Immature Granulocytes Absolute 0.01 #; Lymphocytes # 0.5 10*3/uL (1.4-4.0); Lymphocytes % 13.3 % (21.3-54.2); Mean Corpuscular HGB Conc 31.6 GM/DL (32-36); Mean Platelet Volume 9.8 FL (9.6-12.0); Monocytes % 12.1 % (1.7-12.7); Neutrophils % 74.3 % (38.7-73.9); Platelet Count 122 T/CUMM (130-400); Red Blood Count 3.37 MC/CUMM (3.8-5.5); Red Cell Distribution Width 15.7 % (9.3-17.3); White Blood Count 3.5 T/CUMM (4-12)
[2020-02-13 03:27] LABS: Calcium 8.5 MG/DL (8.5-10.1); Osmolality,Calculated 278.8 MOS/KG (273-304)
[2020-02-13] MEDS: BUDESONIDE 0.5 MG/2 ML NEB RESP TX SCH (06:54)
[2020-02-13 08:07] VITALS: BP 121/70
[2020-02-13] MEDS: INSULIN GLARGINE 100 UNIT/ML SUBCUT SCH (09:52)
[2020-02-13] MEDS: INSULIN REGULAR 100 UNIT/ML SUBCUT SCH (09:54)
[2020-02-13] MEDS: LIDOCAINE 5% PATCH TRANSDERM SCH (09:54)
[2020-02-13] MEDS: PANTOPRAZOLE 40 MG VIAL IV SCH (09:56)
[2020-02-13] MEDS: FUROSEMIDE 40 MG/4 ML VIAL IV SCH (09:56)
[2020-02-13] MEDS: TICAGRELOR 90 MG TABLET PO SCH (09:57)
[2020-02-13] MEDS: PROPRANOLOL 20 MG TABLET PO SCH (09:57)
[2020-02-13] MEDS: ASPIRIN EC 81 MG TABLET PO SCH (09:58)
[2020-02-13] MEDS: predniSONE 20 MG TABLET PO SCH (09:58)
[2020-02-13] MEDS: AMIODARONE 200 MG TABLET PO SCH (09:58)
[2020-02-13] MEDS: levETIRAcetam 500 MG TABLET PO SCH (09:58)
[2020-02-13] MEDS: lisinopriL 10 MG TABLET PO SCH (09:58)
[2020-02-13] MEDS: LACTULOSE 20 GM/30 ML UDCUP PO SCH (09:59)
[2020-02-13] MEDS: NICOTINE 21 MG/24 HR PATCH TRANSDERM SCH (10:15)
[2020-02-13] MEDS: DESITIN 4OZ/NYSTATIN 15 GRAM MIXTURE PASTE TOP SCH (10:18)
== END 2020-02-13 12:21 | disposition home health service (06) | DRG 246 ==
LOC: N.ED 05:20 → N.ICU 06:04 → N.CL 07:21 → N.TELEN 02-05 11:16 → N.TELES 02-06 19:58 → N.TELEN 02-08 16:39
PROVIDERS: ADMIT Internal Medicine Cardiovascular Disease; ATTEND Internal Medicine Cardiovascular Disease
PROC: CLCCHCL (ICD-10-PCS; 2020-01-23 06:15)

== ENCOUNTER 2020-08-01 22:14 | Inpatient (IN) ==
[2020-08-01] MEDS ORDERED: ALBUTEROL/IPRATROPIUM 3 ML NEB RESP TX STA (22:40)
[2020-08-01] MEDS ORDERED: methylPREDNISolone SOD SUC 125 MG/2 ML VIAL IV STA (22:40)
[2020-08-01 22:50] LABS: Basophils % 0.2 % (0.0-0.8); Eosinophils # 0.1 10*3/uL (0.0-0.87); Eosinophils % 0.8 % (0.00-10.9); Hematocrit 25.3 VOL% (35.7-47.0); Hemoglobin 7.6 GM/DL (12.0-16.0); Immature Granulocytes % 0.7 %; Immature Granulocytes Absolute 0.07 #; Lymphocytes # 1.2 10*3/uL (1.4-4.0); Lymphocytes % 11.6 % (21.3-54.2); Mean Corpuscular Volume 91.3 FL (87-102); Mean Platelet Volume 9.8 FL (9.6-12.0); Monocytes % 10.5 % (1.7-12.7); Neutrophils % 76.2 % (38.7-73.9); Platelet Count 137 T/CUMM (130-400); Red Blood Count 2.77 MC/CUMM (3.8-5.5); Red Cell Distribution Width 19.9 % (9.3-17.3); White Blood Count 10.1 T/CUMM (4-12)
[2020-08-01 23:05] LABS: Albumin 2.4 G/DL (3.4-5.0); Bilirubin,Total 0.6 MG/DL (0.2-1.0); Calcium 8.1 MG/DL (8.5-10.1); Osmolality,Calculated 287.3 MOS/KG (273-304); Total Protein 6.7 G/DL (6.4-8.3)
[2020-08-01 23:07] LABS: Ferritin 14.6 ng/ml (8-252)
[2020-08-01 23:08] LABS: INR 1.1; PT Patient Result 11.4 SECS (9.8-11.9)
[2020-08-01] MEDS ORDERED: SODIUM CHLORIDE 0.9% 1,000 ML IV STA (23:22)
[2020-08-01] MEDS ORDERED: LEVOFLOXACIN INJ 500 MG in PREMIX 1 EACH IV STA (23:56)
[2020-08-02 00:39] LABS: Bacteria,Urine Moderate /HPF (Few); Bilirubin,Urine Negative (Negative); Blood, Urine Large mg/dL (Negative); Glucose,Urine (UA) Negative (Negative); Ketones,Urine Negative (Negative); Mucus,Urine Occasional /LPF (Occasional); Nitrite,Urine Negative (Negative); Protein,Urine 100 MG/DL; RBC,Urine 2 /HPF (0-4); Squamous Epithelial Cell,Urine Occasional /HPF (0-10); Urine Appearance Slightly Hazy (Clear); Urine Color Yellow (Yellow); Urine Specific Gravity 1.011 (1.001-1.035); Urine Urobilinogen < 2.0 EU/DL (0.2-1.0); WBC,Urine 1 /HPF (0-6)
[2020-08-02] MEDS ORDERED: GLUCAGON 1 MG VIAL IM PRN (02:07)
[2020-08-02] MEDS ORDERED: ACETAMINOPHEN 325 MG TABLET PO PRN (02:07)
[2020-08-02] MEDS ORDERED: DEXTROSE 50% 25 GM/50 ML VIAL IV PRN (02:07)
[2020-08-02 04:50] LABS: Basophils % 0.2 % (0.0-0.8); Hematocrit 22.5 VOL% (35.7-47.0); Hemoglobin 6.8 GM/DL (12.0-16.0); Immature Granulocytes % 0.7 %; Immature Granulocytes Absolute 0.03 #; Lymphocytes # 0.4 10*3/uL (1.4-4.0); Lymphocytes % 9.4 % (21.3-54.2); Mean Corpuscular HGB Conc 30.2 GM/DL (32-36); Mean Corpuscular Volume 92.2 FL (87-102); Mean Platelet Volume 10.1 FL (9.6-12.0); Neutrophils % 87.7 % (38.7-73.9); Platelet Count 83 T/CUMM (130-400); Red Blood Count 2.44 MC/CUMM (3.8-5.5); Red Cell Distribution Width 19.8 % (9.3-17.3); White Blood Count 4.1 T/CUMM (4-12)
[2020-08-02 05:48] LABS: Bilirubin,Total 0.5 MG/DL (0.2-1.0); Calcium 8.1 MG/DL (8.5-10.1); Osmolality,Calculated 290.1 MOS/KG (273-304); Total Protein 6.2 G/DL (6.4-8.3)
[2020-08-02] MEDS: BENZONATATE 100 MG CAPSULE PO PRN (05:56)
[2020-08-02] MEDS: POTASSIUM CHLORIDE 20 MEQ TABLET PO PRN ×3 (05:56→13:17)
[2020-08-02 05:58] LABS: Acetaminophen < 2.0 UG/ML (10-30); Salicylate 3.2 MG/DL (2.8-20)
[2020-08-02] MEDS ORDERED: SODIUM CHLORIDE 0.9% 1,000 ML IV PRN (06:33)
[2020-08-02 06:39] LABS: Band Neutrophils 1 % (0-10); Hypochromasia 2+; Lymphocytes 3 % (20-55); Segmented Neutrophils 95 % (50-85); Total Cells Counted 100
[2020-08-02 06:40] LABS: Ovalocytes Few; Platelet Estimate Decreased; Tear Drop Cells Few
[2020-08-02 06:52] LABS: Hepatitis B Core IgM Quant 0.21 Index; Hepatitis B Surface Ag Quant < 0.10 Index; Hepatitis B Surface Ag Result Negative (Negative); Hepatitis C Virus Ab Quant 0.09 Index; Hepatitis C Virus Ab Result Negative (Negative)
[2020-08-02] MEDS ORDERED: SODIUM CHLORIDE 0.9% 1,000 ML IV SCH (07:00)
[2020-08-02] MEDS: ALBUTEROL/IPRATROPIUM 3 ML NEB RESP TX SCH ×3 (07:08→19:13)
[2020-08-02] MEDS: PANTOPRAZOLE 40 MG VIAL IV SCH ×2 (08:26→21:27)
[2020-08-02] MEDS: INSULIN LISPRO 100 UNIT/ML SUBCUT SCH ×4 (08:28→21:27)
[2020-08-02] MEDS: DOXYCYCLINE HYCLATE INJ 100 MG in SODIUM CHLORIDE 0.9% 100 ML IV SCH ×2 (08:30→23:28)
[2020-08-02] MEDS: ALBUTEROL 2 MG TABLET PO SCH ×2 (08:31→21:26)
[2020-08-02] MEDS: PROPRANOLOL 20 MG TABLET PO SCH ×2 (08:32→21:13)
[2020-08-02] MEDS: ZINC GLUCONATE 50 MG TABLET PO SCH (08:33)
[2020-08-02] MEDS: THEOPHYLLINE ER (24 HR) 200 MG CAPSULE PO SCH (08:34)
[2020-08-02] MEDS ORDERED: AMIODARONE 200 MG TABLET PO SCH (09:00)
[2020-08-02] MEDS ORDERED: TICAGRELOR 90 MG TABLET PO SCH (09:00)
[2020-08-02] MEDS ORDERED: ASCORBIC ACID 500 MG TABLET PO SCH (09:00)
[2020-08-02] MEDS ORDERED: PANTOPRAZOLE 40 MG TABLET PO SCH (09:00)
[2020-08-02] MEDS ORDERED: ASPIRIN EC 81 MG TABLET PO SCH (09:00)
[2020-08-02] MEDS ORDERED: POTASSIUM CHLORIDE RIDER 20 MEQ in PREMIX 1 EACH IV PRN (11:04)
[2020-08-02] MEDS ORDERED: POTASSIUM CHLORIDE RIDER 10 MEQ in PREMIX 1 EACH IV PRN (11:04)
[2020-08-02] MEDS ORDERED: diphenhydrAMINE 50 MG/1 ML VIAL IV ONE (18:58)
[2020-08-02] MEDS ORDERED: FUROSEMIDE 40 MG/4 ML VIAL IV ONE ×2 (18:59→19:26)
[2020-08-02] MEDS: ACETAMINOPHEN 325 MG TABLET PO ONE ×2 (19:06→20:47)
[2020-08-02] MEDS ORDERED: MORPHINE 4 MG/1 ML VIAL IV ONE (19:24)
[2020-08-02 19:47] LABS: ABG Base Excess -7.5 MMOL/L (-2.5-2.5); ABG HCO3 18.3 MMOL/L (20-26); ABG Oxygen Saturation 92.6 % (95-100); ABG PCO2 40.9 MM HG (35-48); ABG PH 7.274 (7.35-7.45); ABG PO2 72.8 MM HG (80-95); ABG TCO2 17.5 MMOL/L (23-27); Allen Test Positive
[2020-08-02] MEDS: LACTULOSE 20 GM/30 ML UDCUP PO SCH (21:26)
[2020-08-02] MEDS: ASCORBIC ACID 500 MG TABLET PO SCH (21:26)
[2020-08-02 21:49] LABS: ABG Base Excess -6.6 MMOL/L (-2.5-2.5); ABG PCO2 38.5 MM HG (35-48); ABG PH 7.305 (7.35-7.45); ABG TCO2 17.9 MMOL/L (23-27); Allen Test Positive; Pt O2 Delivery Device Simple Mask
[2020-08-02 21:51] LABS: Amorphous Crystals,Urine Few /HPF (Few); Bilirubin,Urine Negative (Negative); Blood, Urine Large mg/dL (Negative); Glucose,Urine (UA) Negative (Negative); Hyaline Casts,Urine 1 /LPF (0-3); Ketones,Urine Negative (Negative); Mucus,Urine Occasional /LPF (Occasional); Nitrite,Urine Negative (Negative); Protein,Urine 100 MG/DL; RBC,Urine 1 /HPF (0-4); Squamous Epithelial Cell,Urine Occasional /HPF (0-10); Urine Appearance Slightly Hazy (Clear); Urine Color Yellow (Yellow); Urine Specific Gravity 1.014 (1.001-1.035); Urine Urobilinogen < 2.0 EU/DL (0.2-1.0); WBC,Urine 1 /HPF (0-6)
[2020-08-02] MEDS: PHENYLEPHRINE DRIP 40 MG/250 ML PREMIX IV PRN (23:29)
[2020-08-03] MEDS: ALBUTEROL/IPRATROPIUM 3 ML NEB RESP TX SCH ×4 (01:16→19:23)
[2020-08-03 03:43] LABS: Basophils % 0.1 % (0.0-0.8); Hematocrit 31.2 VOL% (35.7-47.0); Hemoglobin 9.4 GM/DL (12.0-16.0); Immature Granulocytes % 1.1 %; Immature Granulocytes Absolute 0.23 #; Lymphocytes # 2.2 10*3/uL (1.4-4.0); Lymphocytes % 10.8 % (21.3-54.2); Mean Corpuscular HGB Conc 30.1 GM/DL (32-36); Mean Corpuscular Volume 91.2 FL (87-102); Mean Platelet Volume 9.6 FL (9.6-12.0); Monocytes % 11.7 % (1.7-12.7); Neutrophils % 76.3 % (38.7-73.9); Platelet Count 172 T/CUMM (130-400); Red Blood Count 3.42 MC/CUMM (3.8-5.5); Red Cell Distribution Width 19.4 % (9.3-17.3); White Blood Count 20.7 T/CUMM (4-12)
[2020-08-03 04:01] LABS: Albumin 2.3 G/DL (3.4-5.0); Bilirubin,Total 0.7 MG/DL (0.2-1.0); Calcium 8.8 MG/DL (8.5-10.1); Osmolality,Calculated 292.8 MOS/KG (273-304); Total Protein 6.6 G/DL (6.4-8.3)
[2020-08-03 04:18] LABS: Band Neutrophils 1 % (0-10); Lymphocytes 8 % (20-55); Platelet Estimate Normal; Segmented Neutrophils 84 % (50-85); Total Cells Counted 100
[2020-08-03 04:19] LABS: Anisocytosis 2+; Hypochromasia Slight; Microcytosis 1+; Polychromasia 1+
[2020-08-03] MEDS ORDERED: FUROSEMIDE 40 MG/4 ML VIAL IV ONE (07:04)
[2020-08-03] MEDS: INSULIN LISPRO 100 UNIT/ML SUBCUT SCH ×4 (07:55→20:35)
[2020-08-03] MEDS: ZINC GLUCONATE 50 MG TABLET PO SCH (08:17)
[2020-08-03] MEDS: LACTULOSE 20 GM/30 ML UDCUP PO SCH ×3 (08:17→20:09)
[2020-08-03] MEDS: THEOPHYLLINE ER (24 HR) 200 MG CAPSULE PO SCH (08:17)
[2020-08-03] MEDS: PANTOPRAZOLE 40 MG VIAL IV SCH ×2 (08:17→20:36)
[2020-08-03] MEDS: ASCORBIC ACID 500 MG TABLET PO SCH ×2 (08:17→20:35)
[2020-08-03] MEDS: PROPRANOLOL 20 MG TABLET PO SCH ×2 (08:17→20:35)
[2020-08-03] MEDS: ALBUTEROL 2 MG TABLET PO SCH ×2 (08:26→20:35)
[2020-08-03] MEDS: DOXYCYCLINE HYCLATE INJ 100 MG in SODIUM CHLORIDE 0.9% 100 ML IV SCH ×2 (11:26→23:20)
[2020-08-03] MEDS: methylPREDNISolone SOD SUC 40 MG/1 ML VIAL IV SCH (15:40)
[2020-08-03] MEDS ORDERED: ALBUTEROL/IPRATROPIUM 3 ML NEB RESP TX ONE (16:43)
[2020-08-03] MEDS: ONDANSETRON 4 MG TABLET PO PRN (17:11)
[2020-08-03] MEDS: traMADol 50 MG TABLET PO PRN (17:11)
[2020-08-03 17:34] LABS: ABG Base Excess -3.4 MMOL/L (-2.5-2.5); ABG HCO3 21.5 MMOL/L (20-26); ABG Oxygen Saturation 91.4 % (95-100); ABG PCO2 41.1 MM HG (35-48); ABG PH 7.339 (7.35-7.45); ABG PO2 64.8 MM HG (80-95); ABG TCO2 20.5 MMOL/L (23-27); Pt O2 Delivery Device Venturi Mask
[2020-08-04] MEDS: ALBUTEROL/IPRATROPIUM 3 ML NEB RESP TX SCH ×4 (01:45→19:28)
[2020-08-04] MEDS: methylPREDNISolone SOD SUC 40 MG/1 ML VIAL IV SCH ×2 (03:10→14:35)
[2020-08-04] MEDS: PHENYLEPHRINE DRIP 40 MG/250 ML PREMIX IV PRN (04:30)
[2020-08-04] MEDS: PANTOPRAZOLE 40 MG VIAL IV SCH ×2 (08:08→20:35)
[2020-08-04] MEDS: INSULIN LISPRO 100 UNIT/ML SUBCUT SCH ×4 (08:08→20:34)
[2020-08-04] MEDS: PROPRANOLOL 20 MG TABLET PO SCH ×2 (08:09→20:34)
[2020-08-04] MEDS: THEOPHYLLINE ER (24 HR) 200 MG CAPSULE PO SCH (08:09)
[2020-08-04] MEDS: ZINC GLUCONATE 50 MG TABLET PO SCH (08:09)
[2020-08-04] MEDS: LACTULOSE 20 GM/30 ML UDCUP PO SCH ×2 (08:09→21:05)
[2020-08-04] MEDS: ASCORBIC ACID 500 MG TABLET PO SCH ×2 (08:09→20:34)
[2020-08-04] MEDS: ALBUTEROL 2 MG TABLET PO SCH ×2 (08:11→20:34)
[2020-08-04 09:40] LABS: Hematocrit 28.8 VOL% (35.7-47.0); Hemoglobin 8.8 GM/DL (12.0-16.0); Immature Granulocytes % 1.6 %; Immature Granulocytes Absolute 0.21 #; Lymphocytes # 0.8 10*3/uL (1.4-4.0); Lymphocytes % 6.2 % (21.3-54.2); Mean Corpuscular HGB Conc 30.6 GM/DL (32-36); Mean Corpuscular Volume 91.4 FL (87-102); Monocytes % 4.2 % (1.7-12.7); Red Blood Count 3.15 MC/CUMM (3.8-5.5); Red Cell Distribution Width 19.6 % (9.3-17.3); White Blood Count 12.7 T/CUMM (4-12)
[2020-08-04 10:13] LABS: Calcium 9.1 MG/DL (8.5-10.1)
[2020-08-04 10:19] LABS: Platelet Count 96 T/CUMM (130-400)
[2020-08-04 10:33] LABS: Hypochromasia 2+; Microcytosis 1+; Platelet Estimate Decreased
[2020-08-04] MEDS: DOXYCYCLINE HYCLATE INJ 100 MG in SODIUM CHLORIDE 0.9% 100 ML IV SCH ×2 (11:24→23:20)
[2020-08-04] MEDS: traMADol 50 MG TABLET PO PRN ×2 (12:05→20:44)
[2020-08-04] MEDS: ONDANSETRON 4 MG TABLET PO PRN ×2 (12:05→20:44)
[2020-08-04] MEDS: FUROSEMIDE 40 MG TABLET PO SCH (12:08)
[2020-08-05] MEDS: ALBUTEROL/IPRATROPIUM 3 ML NEB RESP TX SCH ×4 (00:06→19:42)
[2020-08-05] MEDS: methylPREDNISolone SOD SUC 40 MG/1 ML VIAL IV SCH ×2 (02:20→14:01)
[2020-08-05 08:38] LABS: Hemoglobin 9.8 GM/DL (12.0-16.0); Mean Corpuscular HGB Conc 30.6 GM/DL (32-36); Mean Corpuscular Volume 91.2 FL (87-102); Red Blood Count 3.51 MC/CUMM (3.8-5.5); Red Cell Distribution Width 20.1 % (9.3-17.3); White Blood Count 23.4 T/CUMM (4-12)
[2020-08-05 08:39] LABS: Basophils % 0.2 % (0.0-0.8); Immature Granulocytes % 3.5 %; Immature Granulocytes Absolute 0.83 #; Lymphocytes % 4.1 % (21.3-54.2); Mean Platelet Volume 9.6 FL (9.6-12.0); Monocytes % 4.5 % (1.7-12.7); Neutrophils % 87.7 % (38.7-73.9); Platelet Count 144 T/CUMM (130-400)
[2020-08-05] MEDS: PANTOPRAZOLE 40 MG VIAL IV SCH ×2 (08:46→20:16)
[2020-08-05] MEDS: ASCORBIC ACID 500 MG TABLET PO SCH ×2 (08:47→20:17)
[2020-08-05] MEDS: INSULIN LISPRO 100 UNIT/ML SUBCUT SCH ×4 (08:47→20:17)
[2020-08-05] MEDS: ZINC GLUCONATE 50 MG TABLET PO SCH (08:47)
[2020-08-05] MEDS: ALBUTEROL 2 MG TABLET PO SCH ×2 (08:47→20:17)
[2020-08-05] MEDS: THEOPHYLLINE ER (24 HR) 200 MG CAPSULE PO SCH (08:47)
[2020-08-05] MEDS: PROPRANOLOL 20 MG TABLET PO SCH ×2 (08:48→20:17)
[2020-08-05] MEDS: LACTULOSE 20 GM/30 ML UDCUP PO SCH ×2 (08:48→20:17)
[2020-08-05] MEDS: FUROSEMIDE 40 MG TABLET PO SCH (08:48)
[2020-08-05 08:58] LABS: Osmolality,Calculated 294.4 MOS/KG (273-304)
[2020-08-05 08:59] LABS: Band Neutrophils 1 % (0-10); Hypochromasia 1+; Lymphocytes 3 % (20-55); Microcytosis 1+; Polychromasia Slight; Segmented Neutrophils 95 % (50-85); Total Cells Counted 100
[2020-08-05 09:00] LABS: Platelet Estimate Adequate
[2020-08-05 09:27] LABS: Albumin 2.2 G/DL (3.4-5.0); Bilirubin,Direct 0.29 MG/DL (0.0-0.20); Bilirubin,Indirect 0.3 MG/DL (0.0-1.0); Bilirubin,Total 0.6 MG/DL (0.2-1.0); Total Protein 6.7 G/DL (6.4-8.3)
[2020-08-05] MEDS: DOXYCYCLINE HYCLATE INJ 100 MG in SODIUM CHLORIDE 0.9% 100 ML IV SCH ×2 (11:57→23:50)
[2020-08-05] MEDS: traMADol 50 MG TABLET PO PRN ×2 (12:29→20:19)
[2020-08-05] MEDS: ONDANSETRON 4 MG TABLET PO PRN (20:19)
[2020-08-06] MEDS: ALBUTEROL/IPRATROPIUM 3 ML NEB RESP TX SCH ×4 (00:16→19:24)
[2020-08-06] MEDS: methylPREDNISolone SOD SUC 40 MG/1 ML VIAL IV SCH ×2 (02:26→13:53)
[2020-08-06 05:17] LABS: Basophils % 0.1 % (0.0-0.8); Hematocrit 28.8 VOL% (35.7-47.0); Hemoglobin 8.9 GM/DL (12.0-16.0); Immature Granulocytes % 1.1 %; Immature Granulocytes Absolute 0.14 #; Lymphocytes # 0.8 10*3/uL (1.4-4.0); Mean Corpuscular HGB Conc 30.9 GM/DL (32-36); Mean Corpuscular Volume 90.9 FL (87-102); Mean Platelet Volume 9.3 FL (9.6-12.0); Monocytes % 7.9 % (1.7-12.7); Neutrophils % 84.9 % (38.7-73.9); Platelet Count 93 T/CUMM (130-400); Red Blood Count 3.17 MC/CUMM (3.8-5.5); Red Cell Distribution Width 19.8 % (9.3-17.3); White Blood Count 12.6 T/CUMM (4-12)
[2020-08-06 05:41] LABS: Hypochromasia 1+; Platelet Estimate Decreased
[2020-08-06 05:42] LABS: Microcytosis Slight
[2020-08-06 05:48] LABS: Calcium 8.6 MG/DL (8.5-10.1); Osmolality,Calculated 294.4 MOS/KG (273-304)
[2020-08-06] MEDS: THEOPHYLLINE ER (24 HR) 200 MG CAPSULE PO SCH (08:47)
[2020-08-06] MEDS: INSULIN LISPRO 100 UNIT/ML SUBCUT SCH ×5 (08:47→20:47)
[2020-08-06] MEDS: LACTULOSE 20 GM/30 ML UDCUP PO SCH ×3 (08:47→20:47)
[2020-08-06] MEDS: FUROSEMIDE 40 MG TABLET PO SCH (08:48)
[2020-08-06] MEDS: ZINC GLUCONATE 50 MG TABLET PO SCH (08:48)
[2020-08-06] MEDS: ALBUTEROL 2 MG TABLET PO SCH ×2 (08:48→20:48)
[2020-08-06] MEDS: ASCORBIC ACID 500 MG TABLET PO SCH ×2 (08:48→20:48)
[2020-08-06] MEDS: PROPRANOLOL 20 MG TABLET PO SCH ×2 (08:49→20:48)
[2020-08-06] MEDS: PANTOPRAZOLE 40 MG VIAL IV SCH (08:49)
[2020-08-06] MEDS: ONDANSETRON 4 MG TABLET PO PRN ×2 (16:04→21:46)
[2020-08-06] MEDS: traMADol 50 MG TABLET PO PRN (16:04)
[2020-08-06] MEDS: PANTOPRAZOLE 40 MG TABLET PO SCH (20:47)
[2020-08-06] MEDS: DOXYCYCLINE HYCLATE 100 MG CAPSULE PO SCH (20:48)
[2020-08-06] MEDS: BENZONATATE 100 MG CAPSULE PO PRN (20:58)
[2020-08-07] MEDS: ALBUTEROL/IPRATROPIUM 3 ML NEB RESP TX SCH ×4 (00:50→19:15)
[2020-08-07] MEDS: methylPREDNISolone SOD SUC 40 MG/1 ML VIAL IV SCH ×2 (01:00→14:40)
[2020-08-07 06:35] LABS: Basophils % 0.1 % (0.0-0.8); Hematocrit 29.9 VOL% (35.7-47.0); Hemoglobin 9.1 GM/DL (12.0-16.0); Lymphocytes # 0.7 10*3/uL (1.4-4.0); Lymphocytes % 6.7 % (21.3-54.2); Mean Corpuscular HGB Conc 30.4 GM/DL (32-36); Mean Corpuscular Volume 90.9 FL (87-102); Monocytes % 3.8 % (1.7-12.7); Neutrophils % 88.4 % (38.7-73.9); Platelet Count 93 T/CUMM (130-400); Red Blood Count 3.29 MC/CUMM (3.8-5.5); Red Cell Distribution Width 19.9 % (9.3-17.3); White Blood Count 10.2 T/CUMM (4-12)
[2020-08-07 06:49] LABS: Calcium 8.6 MG/DL (8.5-10.1); Osmolality,Calculated 301.3 MOS/KG (273-304)
[2020-08-07] MEDS: INSULIN LISPRO 100 UNIT/ML SUBCUT SCH ×4 (08:50→21:10)
[2020-08-07] MEDS: LACTULOSE 20 GM/30 ML UDCUP PO SCH ×2 (08:51→21:12)
[2020-08-07] MEDS: DOXYCYCLINE HYCLATE 100 MG CAPSULE PO SCH ×2 (08:53→21:11)
[2020-08-07] MEDS: ASCORBIC ACID 500 MG TABLET PO SCH ×2 (08:53→21:11)
[2020-08-07] MEDS: ZINC GLUCONATE 50 MG TABLET PO SCH (08:53)
[2020-08-07] MEDS: PROPRANOLOL 20 MG TABLET PO SCH ×2 (08:54→21:11)
[2020-08-07] MEDS: THEOPHYLLINE ER (24 HR) 200 MG CAPSULE PO SCH (08:54)
[2020-08-07] MEDS: ALBUTEROL 2 MG TABLET PO SCH ×2 (08:54→21:11)
[2020-08-07] MEDS: FUROSEMIDE 40 MG TABLET PO SCH (08:54)
[2020-08-07] MEDS: PANTOPRAZOLE 40 MG TABLET PO SCH ×2 (11:49→21:11)
[2020-08-07] MEDS: traMADol 50 MG TABLET PO PRN ×2 (15:51→21:15)
[2020-08-07] MEDS: ONDANSETRON 4 MG TABLET PO PRN (15:52)
[2020-08-07] MEDS: BENZONATATE 100 MG CAPSULE PO PRN (21:15)
[2020-08-08] MEDS: ALBUTEROL/IPRATROPIUM 3 ML NEB RESP TX SCH ×4 (00:23→19:47)
[2020-08-08] MEDS: methylPREDNISolone SOD SUC 40 MG/1 ML VIAL IV SCH (01:50)
[2020-08-08 06:20] LABS: Basophils % 0.1 % (0.0-0.8); Hematocrit 30.5 VOL% (35.7-47.0); Hemoglobin 9.3 GM/DL (12.0-16.0); Immature Granulocytes % 0.8 %; Immature Granulocytes Absolute 0.07 #; Lymphocytes # 0.8 10*3/uL (1.4-4.0); Lymphocytes % 8.7 % (21.3-54.2); Mean Corpuscular HGB Conc 30.5 GM/DL (32-36); Mean Corpuscular Volume 89.7 FL (87-102); Mean Platelet Volume 9.6 FL (9.6-12.0); Monocytes % 6.3 % (1.7-12.7); Neutrophils % 84.1 % (38.7-73.9); Red Cell Distribution Width 19.8 % (9.3-17.3); White Blood Count 9.2 T/CUMM (4-12)
[2020-08-08 06:24] LABS: Platelet Count 95 T/CUMM (130-400)
[2020-08-08 06:38] LABS: Calcium 8.7 MG/DL (8.5-10.1); Osmolality,Calculated 304.8 MOS/KG (273-304)
[2020-08-08 06:48] LABS: Hypochromasia 1+; Microcytosis 1+; Platelet Estimate Decreased
[2020-08-08] MEDS: INSULIN LISPRO 100 UNIT/ML SUBCUT SCH ×4 (08:17→20:53)
[2020-08-08] MEDS: DOXYCYCLINE HYCLATE 100 MG CAPSULE PO SCH ×2 (08:20→21:00)
[2020-08-08] MEDS: PANTOPRAZOLE 40 MG TABLET PO SCH ×2 (08:20→21:00)
[2020-08-08] MEDS: THEOPHYLLINE ER (24 HR) 200 MG CAPSULE PO SCH (08:20)
[2020-08-08] MEDS: FUROSEMIDE 40 MG TABLET PO SCH (08:20)
[2020-08-08] MEDS: ZINC GLUCONATE 50 MG TABLET PO SCH (08:20)
[2020-08-08] MEDS: PROPRANOLOL 20 MG TABLET PO SCH ×2 (08:20→21:00)
[2020-08-08] MEDS: ALBUTEROL 2 MG TABLET PO SCH ×2 (08:24→21:00)
[2020-08-08] MEDS: LACTULOSE 20 GM/30 ML UDCUP PO SCH ×2 (08:26→20:59)
[2020-08-08] MEDS: ASCORBIC ACID 500 MG TABLET PO SCH ×2 (11:26→21:00)
[2020-08-08] MEDS: FLUCONAZOLE 100 MG TABLET PO SCH (13:44)
[2020-08-08] MEDS: predniSONE 20 MG TABLET PO SCH (20:59)
[2020-08-08] MEDS: INSULIN GLARGINE 100 UNIT/ML SUBCUT SCH (21:01)
[2020-08-08] MEDS: ONDANSETRON 4 MG TABLET PO PRN (21:48)
[2020-08-08] MEDS ORDERED: ONDANSETRON 4 MG/2 ML VIAL IV ONE (22:44)
[2020-08-09] MEDS: ALBUTEROL/IPRATROPIUM 3 ML NEB RESP TX SCH ×4 (00:45→20:27)
[2020-08-09 06:24] LABS: Eosinophils % 0.1 % (0.00-10.9); Hematocrit 28.5 VOL% (35.7-47.0); Hemoglobin 8.7 GM/DL (12.0-16.0); Immature Granulocytes % 0.8 %; Immature Granulocytes Absolute 0.07 #; Lymphocytes % 11.1 % (21.3-54.2); Mean Corpuscular HGB Conc 30.5 GM/DL (32-36); Mean Corpuscular Volume 90.2 FL (87-102); Mean Platelet Volume 9.7 FL (9.6-12.0); Monocytes % 6.7 % (1.7-12.7); Neutrophils % 81.3 % (38.7-73.9); Red Blood Count 3.16 MC/CUMM (3.8-5.5); Red Cell Distribution Width 19.5 % (9.3-17.3); White Blood Count 8.9 T/CUMM (4-12)
[2020-08-09 06:26] LABS: Platelet Count 109 T/CUMM (130-400)
[2020-08-09 06:41] LABS: Calcium 8.3 MG/DL (8.5-10.1); Osmolality,Calculated 302.3 MOS/KG (273-304)
[2020-08-09 06:44] LABS: Hypochromasia Slight; Platelet Estimate Normal
[2020-08-09] MEDS: INSULIN LISPRO 100 UNIT/ML SUBCUT SCH ×4 (08:37→21:12)
[2020-08-09] MEDS: THEOPHYLLINE ER (24 HR) 200 MG CAPSULE PO SCH (10:24)
[2020-08-09] MEDS: ZINC GLUCONATE 50 MG TABLET PO SCH (10:24)
[2020-08-09] MEDS: FUROSEMIDE 40 MG TABLET PO SCH (10:24)
[2020-08-09] MEDS: DOXYCYCLINE HYCLATE 100 MG CAPSULE PO SCH ×2 (10:24→21:12)
[2020-08-09] MEDS: PROPRANOLOL 20 MG TABLET PO SCH ×2 (10:24→21:11)
[2020-08-09] MEDS: predniSONE 20 MG TABLET PO SCH ×2 (10:25→21:12)
[2020-08-09] MEDS: FLUCONAZOLE 100 MG TABLET PO SCH (10:25)
[2020-08-09] MEDS: ASCORBIC ACID 500 MG TABLET PO SCH ×2 (10:25→21:12)
[2020-08-09] MEDS: PANTOPRAZOLE 40 MG TABLET PO SCH ×2 (10:25→21:12)
[2020-08-09] MEDS: LACTULOSE 20 GM/30 ML UDCUP PO SCH ×2 (10:29→21:10)
[2020-08-09] MEDS: ALBUTEROL 2 MG TABLET PO SCH ×2 (10:31→21:12)
[2020-08-09] MEDS: traMADol 50 MG TABLET PO PRN (17:47)
[2020-08-09] MEDS: guaiFENesin/DM ER 600-30 MG TABLET PO PRN (21:12)
[2020-08-09] MEDS: INSULIN GLARGINE 100 UNIT/ML SUBCUT SCH (21:12)
[2020-08-09] MEDS: ONDANSETRON 4 MG TABLET PO PRN (22:53)
[2020-08-10] MEDS: ALBUTEROL/IPRATROPIUM 3 ML NEB RESP TX SCH ×4 (01:14→19:34)
[2020-08-10 06:21] LABS: Basophils % 0.1 % (0.0-0.8); Hemoglobin 8.6 GM/DL (12.0-16.0); Immature Granulocytes % 0.7 %; Immature Granulocytes Absolute 0.05 #; Lymphocytes # 0.9 10*3/uL (1.4-4.0); Lymphocytes % 11.7 % (21.3-54.2); Mean Corpuscular HGB Conc 30.7 GM/DL (32-36); Mean Corpuscular Volume 89.5 FL (87-102); Mean Platelet Volume 9.8 FL (9.6-12.0); Monocytes % 7.5 % (1.7-12.7); Red Blood Count 3.13 MC/CUMM (3.8-5.5); Red Cell Distribution Width 19.2 % (9.3-17.3); White Blood Count 7.5 T/CUMM (4-12)
[2020-08-10 06:27] LABS: Platelet Count 95 T/CUMM (130-400)
[2020-08-10 06:32] LABS: Calcium 8.3 MG/DL (8.5-10.1); Osmolality,Calculated 292.7 MOS/KG (273-304)
[2020-08-10 06:41] LABS: Hypochromasia 2+; Microcytosis 1+; Platelet Estimate Decreased
[2020-08-10] MEDS: PANTOPRAZOLE 40 MG TABLET PO SCH ×2 (08:54→22:02)
[2020-08-10] MEDS: ALBUTEROL 2 MG TABLET PO SCH ×2 (08:54→22:03)
[2020-08-10] MEDS: DOXYCYCLINE HYCLATE 100 MG CAPSULE PO SCH ×2 (08:55→22:03)
[2020-08-10] MEDS: PROPRANOLOL 20 MG TABLET PO SCH ×2 (08:55→22:04)
[2020-08-10] MEDS: THEOPHYLLINE ER (24 HR) 200 MG CAPSULE PO SCH (08:55)
[2020-08-10] MEDS: predniSONE 20 MG TABLET PO SCH ×2 (08:55→22:04)
[2020-08-10] MEDS: ASCORBIC ACID 500 MG TABLET PO SCH ×3 (08:55→22:03)
[2020-08-10] MEDS: FUROSEMIDE 40 MG TABLET PO SCH ×2 (08:55→08:58)
[2020-08-10] MEDS: FLUCONAZOLE 100 MG TABLET PO SCH (08:55)
[2020-08-10] MEDS: ZINC GLUCONATE 50 MG TABLET PO SCH (08:55)
[2020-08-10] MEDS: INSULIN LISPRO 100 UNIT/ML SUBCUT SCH ×4 (08:56→22:00)
[2020-08-10] MEDS: LACTULOSE 20 GM/30 ML UDCUP PO SCH ×2 (08:59→22:04)
[2020-08-10] MEDS: POTASSIUM CHLORIDE 20 MEQ TABLET PO PRN (17:54)
[2020-08-10] MEDS: guaiFENesin/DM ER 600-30 MG TABLET PO PRN (22:03)
[2020-08-10] MEDS: INSULIN GLARGINE 100 UNIT/ML SUBCUT SCH (22:09)
[2020-08-11] MEDS: ONDANSETRON 4 MG TABLET PO PRN ×2 (00:58→19:43)
[2020-08-11] MEDS: ALBUTEROL/IPRATROPIUM 3 ML NEB RESP TX SCH ×4 (01:11→20:57)
[2020-08-11 06:25] LABS: Basophils % 0.1 % (0.0-0.8); Hematocrit 30.1 VOL% (35.7-47.0); Hemoglobin 9.2 GM/DL (12.0-16.0); Immature Granulocytes % 1.5 %; Immature Granulocytes Absolute 0.11 #; Lymphocytes % 13.3 % (21.3-54.2); Mean Corpuscular HGB Conc 30.6 GM/DL (32-36); Mean Corpuscular Volume 88.5 FL (87-102); Mean Platelet Volume 9.5 FL (9.6-12.0); Monocytes % 7.5 % (1.7-12.7); Neutrophils % 77.6 % (38.7-73.9); Platelet Count 94 T/CUMM (130-400); White Blood Count 7.4 T/CUMM (4-12)
[2020-08-11 06:40] LABS: Calcium 8.4 MG/DL (8.5-10.1); Osmolality,Calculated 292.5 MOS/KG (273-304)
[2020-08-11 06:49] LABS: Hypochromasia 2+; Microcytosis 1+; Ovalocytes Slight; Platelet Estimate Decreased
[2020-08-11] MEDS: LACTATED RINGERS 1,000 ML IV SCH (08:33)
[2020-08-11] MEDS ORDERED: propofoL 200 MG/20 ML VIAL IV ONE (09:00)
[2020-08-11] MEDS ORDERED: LIDOCAINE 100 MG/5 ML SYRINGE ONE (09:00)
[2020-08-11] MEDS: INSULIN LISPRO 100 UNIT/ML SUBCUT SCH ×4 (11:42→21:07)
[2020-08-11] MEDS: predniSONE 20 MG TABLET PO SCH ×2 (11:43→21:28)
[2020-08-11] MEDS: FLUCONAZOLE 100 MG TABLET PO SCH (11:43)
[2020-08-11] MEDS: LACTULOSE 20 GM/30 ML UDCUP PO SCH ×2 (11:43→21:28)
[2020-08-11] MEDS: ALBUTEROL 2 MG TABLET PO SCH ×2 (11:44→21:27)
[2020-08-11] MEDS: ASCORBIC ACID 500 MG TABLET PO SCH ×2 (11:44→21:28)
[2020-08-11] MEDS: PANTOPRAZOLE 40 MG TABLET PO SCH ×2 (11:44→21:27)
[2020-08-11] MEDS: ZINC GLUCONATE 50 MG TABLET PO SCH (11:44)
[2020-08-11] MEDS: DOXYCYCLINE HYCLATE 100 MG CAPSULE PO SCH ×2 (11:46→21:28)
[2020-08-11] MEDS: FUROSEMIDE 40 MG TABLET PO SCH (11:46)
[2020-08-11] MEDS: PROPRANOLOL 20 MG TABLET PO SCH ×2 (11:52→21:28)
[2020-08-11] MEDS: THEOPHYLLINE ER (24 HR) 200 MG CAPSULE PO SCH (11:52)
[2020-08-11] MEDS ORDERED: BISACODYL 5 MG TABLET PO ONE (12:00)
[2020-08-11] MEDS ORDERED: POLYETHYLENE GLYCOL POWDER 255 GM BOTTLE PO ONE (18:00)
[2020-08-11] MEDS: INSULIN GLARGINE 100 UNIT/ML SUBCUT SCH (21:07)
[2020-08-11] MEDS ORDERED: ONDANSETRON 4 MG/2 ML VIAL IV ONE (23:47)
[2020-08-12] MEDS: ALBUTEROL/IPRATROPIUM 3 ML NEB RESP TX SCH ×4 (00:48→20:00)
[2020-08-12 06:56] LABS: Basophils % 0.2 % (0.0-0.8); Hematocrit 31.3 VOL% (35.7-47.0); Hemoglobin 9.6 GM/DL (12.0-16.0); Immature Granulocytes % 1.1 %; Immature Granulocytes Absolute 0.07 #; Lymphocytes # 0.9 10*3/uL (1.4-4.0); Lymphocytes % 14.7 % (21.3-54.2); Mean Corpuscular HGB Conc 30.7 GM/DL (32-36); Mean Corpuscular Volume 87.7 FL (87-102); Mean Platelet Volume 9.9 FL (9.6-12.0); Monocytes % 6.9 % (1.7-12.7); Neutrophils % 77.1 % (38.7-73.9); Platelet Count 107 T/CUMM (130-400); Red Blood Count 3.57 MC/CUMM (3.8-5.5); Red Cell Distribution Width 18.7 % (9.3-17.3); White Blood Count 6.3 T/CUMM (4-12)
[2020-08-12 07:18] LABS: INR 1.2; PT Patient Result 12.7 SECS (9.8-11.9)
[2020-08-12 07:21] LABS: Platelet Estimate Adequate
[2020-08-12 07:22] LABS: Anisocytosis 1+; Hypochromasia Slight
[2020-08-12 07:24] LABS: Calcium 8.3 MG/DL (8.5-10.1); Osmolality,Calculated 287.8 MOS/KG (273-304)
[2020-08-12] MEDS: INSULIN LISPRO 100 UNIT/ML SUBCUT SCH ×4 (07:46→21:14)
[2020-08-12] MEDS: LACTATED RINGERS 1,000 ML IV SCH (08:00)
[2020-08-12] MEDS ORDERED: LACTATED RINGERS 1,000 ML IV SCH (08:00)
[2020-08-12] MEDS ORDERED: POLYETHYLENE GLYCOL POWDER 255 GM BOTTLE PO ONE (08:57)
[2020-08-12] MEDS: FLUCONAZOLE 100 MG TABLET PO SCH (09:33)
[2020-08-12] MEDS: FUROSEMIDE 40 MG TABLET PO SCH (09:34)
[2020-08-12] MEDS: ALBUTEROL 2 MG TABLET PO SCH ×2 (09:34→21:03)
[2020-08-12] MEDS: PROPRANOLOL 20 MG TABLET PO SCH ×2 (09:34→21:04)
[2020-08-12] MEDS: predniSONE 20 MG TABLET PO SCH ×2 (09:34→21:04)
[2020-08-12] MEDS: PANTOPRAZOLE 40 MG TABLET PO SCH ×2 (09:34→21:04)
[2020-08-12] MEDS: DOXYCYCLINE HYCLATE 100 MG CAPSULE PO SCH ×2 (09:34→21:04)
[2020-08-12] MEDS: ZINC GLUCONATE 50 MG TABLET PO SCH (09:35)
[2020-08-12] MEDS: ASCORBIC ACID 500 MG TABLET PO SCH ×2 (09:35→21:04)
[2020-08-12] MEDS: LACTULOSE 20 GM/30 ML UDCUP PO SCH ×2 (09:38→21:04)
[2020-08-12] MEDS: THEOPHYLLINE ER (24 HR) 200 MG CAPSULE PO SCH (09:40)
[2020-08-12] MEDS: INSULIN GLARGINE 100 UNIT/ML SUBCUT SCH (21:04)
[2020-08-12] MEDS: ONDANSETRON 4 MG/2 ML VIAL IV PRN (21:14)
[2020-08-13] MEDS: ALBUTEROL/IPRATROPIUM 3 ML NEB RESP TX SCH ×4 (01:19→20:23)
[2020-08-13 05:47] LABS: Basophils % 0.2 % (0.0-0.8); Hematocrit 28.7 VOL% (35.7-47.0); Hemoglobin 8.9 GM/DL (12.0-16.0); Immature Granulocytes % 1.1 %; Immature Granulocytes Absolute 0.07 #; Lymphocytes # 0.9 10*3/uL (1.4-4.0); Lymphocytes % 14.7 % (21.3-54.2); Mean Corpuscular Volume 88.9 FL (87-102); Mean Platelet Volume 10.4 FL (9.6-12.0); Monocytes % 6.5 % (1.7-12.7); Neutrophils % 77.5 % (38.7-73.9); Platelet Count 96 T/CUMM (130-400); Red Blood Count 3.23 MC/CUMM (3.8-5.5); Red Cell Distribution Width 18.4 % (9.3-17.3); White Blood Count 6.3 T/CUMM (4-12)
[2020-08-13 05:53] LABS: INR 1.3; PT Patient Result 13.7 SECS (9.8-11.9)
[2020-08-13 06:14] LABS: Calcium 8.5 MG/DL (8.5-10.1); Osmolality,Calculated 283.8 MOS/KG (273-304); Platelet Estimate Decreased
[2020-08-13 06:15] LABS: Anisocytosis 2+; Basophilic Stippling Slight
[2020-08-13 06:16] LABS: Albumin 1.9 G/DL (3.4-5.0); Bilirubin,Total 0.7 MG/DL (0.2-1.0); Calcium 8.5 MG/DL (8.5-10.1)
[2020-08-13] MEDS: INSULIN LISPRO 100 UNIT/ML SUBCUT SCH ×4 (07:34→22:14)
[2020-08-13] MEDS: LACTATED RINGERS 1,000 ML IV SCH ×2 (08:32→11:15)
[2020-08-13] MEDS ORDERED: PHENYLEPHRINE 1 MG/10 ML SYRINGE IV ONE (09:00)
[2020-08-13] MEDS ORDERED: propofoL 200 MG/20 ML VIAL IV ONE (09:00)
[2020-08-13] MEDS ORDERED: LIDOCAINE 2% 5 ML VIAL ONE (09:00)
[2020-08-13] MEDS ORDERED: ONDANSETRON 4 MG/2 ML VIAL ONE (09:00)
[2020-08-13] MEDS: LACTULOSE 20 GM/30 ML UDCUP PO SCH ×2 (12:36→21:27)
[2020-08-13] MEDS: PANTOPRAZOLE 40 MG TABLET PO SCH ×2 (12:41→21:27)
[2020-08-13] MEDS: predniSONE 20 MG TABLET PO SCH ×2 (12:41→21:27)
[2020-08-13] MEDS: FUROSEMIDE 40 MG TABLET PO SCH (12:41)
[2020-08-13] MEDS: FLUCONAZOLE 100 MG TABLET PO SCH (12:41)
[2020-08-13] MEDS: PROPRANOLOL 20 MG TABLET PO SCH ×2 (12:41→21:28)
[2020-08-13] MEDS: THEOPHYLLINE ER (24 HR) 200 MG CAPSULE PO SCH (12:42)
[2020-08-13] MEDS: ZINC GLUCONATE 50 MG TABLET PO SCH (12:42)
[2020-08-13] MEDS: DOXYCYCLINE HYCLATE 100 MG CAPSULE PO SCH ×2 (12:42→21:28)
[2020-08-13] MEDS: ALBUTEROL 2 MG TABLET PO SCH ×2 (12:42→21:28)
[2020-08-13] MEDS: ASCORBIC ACID 500 MG TABLET PO SCH ×2 (12:52→21:28)
[2020-08-13] MEDS ORDERED: traMADol 50 MG TABLET PO PRN (20:11)
[2020-08-13] MEDS: INSULIN GLARGINE 100 UNIT/ML SUBCUT SCH (21:27)
[2020-08-13] MEDS: POTASSIUM CHLORIDE 20 MEQ TABLET PO PRN (21:28)
[2020-08-13] MEDS: ONDANSETRON 4 MG/2 ML VIAL IV PRN (23:18)
[2020-08-14] MEDS: ALBUTEROL/IPRATROPIUM 3 ML NEB RESP TX SCH ×3 (02:46→14:02)
[2020-08-14 06:06] LABS: Hematocrit 30.5 VOL% (35.7-47.0); Hemoglobin 9.3 GM/DL (12.0-16.0); Immature Granulocytes % 0.7 %; Immature Granulocytes Absolute 0.04 #; Lymphocytes # 0.8 10*3/uL (1.4-4.0); Lymphocytes % 13.3 % (21.3-54.2); Mean Corpuscular HGB Conc 30.5 GM/DL (32-36); Mean Corpuscular Volume 89.7 FL (87-102); Mean Platelet Volume 10.1 FL (9.6-12.0); Monocytes % 6.3 % (1.7-12.7); Neutrophils % 79.7 % (38.7-73.9); Platelet Count 98 T/CUMM (130-400); Red Cell Distribution Width 18.5 % (9.3-17.3); White Blood Count 6.1 T/CUMM (4-12)
[2020-08-14 06:36] LABS: Band Neutrophils 1 % (0-10); Hypochromasia 1+; Lymphocytes 10 % (20-55); Ovalocytes Slight; Platelet Estimate Decreased; Segmented Neutrophils 88 % (50-85); Total Cells Counted 100
[2020-08-14 07:31] LABS: Calcium 8.7 MG/DL (8.5-10.1); Osmolality,Calculated 290.5 MOS/KG (273-304)
[2020-08-14] MEDS: INSULIN LISPRO 100 UNIT/ML SUBCUT SCH ×2 (08:05→11:56)
[2020-08-14] MEDS: LACTATED RINGERS 1,000 ML IV SCH ×2 (08:06)
[2020-08-14] MEDS: THEOPHYLLINE ER (24 HR) 200 MG CAPSULE PO SCH (09:12)
[2020-08-14] MEDS: FUROSEMIDE 40 MG TABLET PO SCH (09:12)
[2020-08-14] MEDS: ALBUTEROL 2 MG TABLET PO SCH (09:12)
[2020-08-14] MEDS: predniSONE 20 MG TABLET PO SCH (09:12)
[2020-08-14] MEDS: ASCORBIC ACID 500 MG TABLET PO SCH (09:12)
[2020-08-14] MEDS: PROPRANOLOL 20 MG TABLET PO SCH (09:12)
[2020-08-14] MEDS: ZINC GLUCONATE 50 MG TABLET PO SCH (09:12)
[2020-08-14] MEDS: LACTULOSE 20 GM/30 ML UDCUP PO SCH (09:12)
[2020-08-14] MEDS: PANTOPRAZOLE 40 MG TABLET PO SCH (09:12)
[2020-08-14] MEDS: FLUCONAZOLE 100 MG TABLET PO SCH (09:12)
[2020-08-14 11:45] VITALS: BP 133/55
[2020-08-14] MEDS ORDERED: INFLUENZA VIRUS VACCINE 0.5 ML SYRINGE IM ONE (14:03)
== END 2020-08-14 15:00 | disposition home health service (06) | DRG 377 ==
LOC: EDBD → EDUNIT# → N.ED 22:14 → N.EDINP 22:14 → SUATTDRO 08-02 02:06 → N.4E 08-02 04:22 → SUATTDRO 08-02 10:43 → N.CC 08-02 20:28 → N.3E 08-06 15:08
PROVIDERS: ADMIT Internal Medicine; ATTEND Internal Medicine

== ENCOUNTER 2020-08-29 14:55 | Inpatient (IN) ==
[2020-08-29] MEDS ORDERED: SODIUM CHLORIDE 0.9% 1,000 ML IV STA (16:30)
[2020-08-29 16:38] LABS: Basophils % 0.2 % (0.0-0.8); Eosinophils % 0.2 % (0.00-10.9); Hematocrit 29.3 VOL% (35.7-47.0); Hemoglobin 9.3 GM/DL (12.0-16.0); Immature Granulocytes % 0.6 %; Immature Granulocytes Absolute 0.04 #; Lymphocytes # 1.2 10*3/uL (1.4-4.0); Lymphocytes % 17.7 % (21.3-54.2); Mean Corpuscular HGB Conc 31.7 GM/DL (32-36); Mean Corpuscular Volume 86.7 FL (87-102); Mean Platelet Volume 10.2 FL (9.6-12.0); Neutrophils % 75.3 % (38.7-73.9); Platelet Count 107 T/CUMM (130-400); Red Blood Count 3.38 MC/CUMM (3.8-5.5); Red Cell Distribution Width 18.1 % (9.3-17.3); White Blood Count 6.5 T/CUMM (4-12)
[2020-08-29 16:44] LABS: INR 1.1; PT Patient Result 11.6 SECS (9.8-11.9)
[2020-08-29 17:05] LABS: Albumin 2.2 G/DL (3.4-5.0); Bilirubin,Total 1.5 MG/DL (0.2-1.0); CKMB % 6.4 %; Calcium 8.5 MG/DL (8.5-10.1); Osmolality,Calculated 263.8 MOS/KG (273-304); Total Protein 7.2 G/DL (6.4-8.3); Troponin I 0.033 NG/ML (0.00-0.045)
[2020-08-29] MEDS ORDERED: POTASSIUM CHLORIDE 20 MEQ TABLET PO STA (17:13)
[2020-08-29] MEDS ORDERED: POTASSIUM CHLORIDE 20 MEQ TABLET PO ONE (17:13)
[2020-08-29] MEDS ORDERED: SODIUM CHLOR 0.9% KCL 40 MEQ 40 MEQ/1,000 ML BAG IV SCH (17:30)
[2020-08-29 18:01] LABS: Bilirubin,Urine Negative (Negative); Blood, Urine Small mg/dL (Negative); Glucose,Urine (UA) Negative (Negative); Hyaline Casts,Urine 3 /LPF (0-3); Ketones,Urine Negative (Negative); Nitrite,Urine Negative (Negative); Protein,Urine 100 MG/DL; RBC,Urine 3 /HPF (0-4); Squamous Epithelial Cell,Urine Occasional /HPF (0-10); Urine Appearance CLOUDY (Clear); Urine Color Amber (Yellow); Urine Specific Gravity 1.011 (1.001-1.035); WBC,Urine 43 /HPF (0-6)
[2020-08-29] MEDS ORDERED: LACTULOSE 20 GM/30 ML UDCUP PO STA (18:13)
[2020-08-29] MEDS ORDERED: cefTRIAXone 1,000 MG in SODIUM CHLORIDE 0.9% 100 ML IV STA (18:13)
[2020-08-29] MEDS ORDERED: SODIUM CHLORIDE 0.9% 500 ML IV STA (19:53)
[2020-08-29] MEDS ORDERED: ONDANSETRON 4 MG/2 ML VIAL IV PRN (20:19)
[2020-08-29] MEDS ORDERED: DEXTROSE 50% 25 GM/50 ML VIAL IV PRN (20:19)
[2020-08-29] MEDS ORDERED: GLUCAGON 1 MG VIAL IM PRN (20:19)
[2020-08-29] MEDS ORDERED: hydrALAZINE 20 MG/1 ML VIAL IV PRN (20:19)
[2020-08-29] MEDS ORDERED: PROMETHAZINE 25 MG TABLET PO PRN (20:19)
[2020-08-29] MEDS ORDERED: NICOTINE 21 MG/24 HR PATCH TRANSDERM PRN (20:19)
[2020-08-29] MEDS ORDERED: NITROGLYCERIN SL 0.4 MG TABLET SL PRN (20:26)
[2020-08-29] MEDS ORDERED: SODIUM CHLORIDE 0.9% 1,000 ML IV SCH (20:30)
[2020-08-29] MEDS ORDERED: ALBUTEROL/IPRATROPIUM 3 ML NEB RESP TX PRN (20:36)
[2020-08-29] MEDS ORDERED: POTASSIUM CHLORIDE 20 MEQ TABLET PO SCH ×2 (21:00)
[2020-08-29] MEDS: ROSUVASTATIN 20 MG TABLET PO SCH (22:42)
[2020-08-29] MEDS: LACTULOSE 20 GM/30 ML UDCUP PO SCH (22:42)
[2020-08-29] MEDS: POTASSIUM CHLORIDE 20 MEQ TABLET PO SCH (22:43)
[2020-08-29] MEDS: PROPRANOLOL 20 MG TABLET PO SCH (22:43)
[2020-08-29] MEDS: ALBUTEROL 2 MG TABLET PO SCH (23:17)
[2020-08-30 06:14] LABS: Eosinophils # 0.1 10*3/uL (0.0-0.87); Eosinophils % 1.1 % (0.00-10.9); Hematocrit 25.9 VOL% (35.7-47.0); Hemoglobin 8.1 GM/DL (12.0-16.0); Immature Granulocytes % 0.4 %; Immature Granulocytes Absolute 0.02 #; Lymphocytes # 1.3 10*3/uL (1.4-4.0); Lymphocytes % 27.9 % (21.3-54.2); Mean Corpuscular HGB Conc 31.3 GM/DL (32-36); Mean Corpuscular Volume 88.7 FL (87-102); Mean Platelet Volume 9.7 FL (9.6-12.0); Monocytes % 12.6 % (1.7-12.7); Platelet Count 76 T/CUMM (130-400); Red Blood Count 2.92 MC/CUMM (3.8-5.5); Red Cell Distribution Width 18.5 % (9.3-17.3); White Blood Count 4.7 T/CUMM (4-12)
[2020-08-30 06:37] LABS: Albumin 1.8 G/DL (3.4-5.0); Calcium 7.9 MG/DL (8.5-10.1); Osmolality,Calculated 275.7 MOS/KG (273-304); Total Protein 5.9 G/DL (6.4-8.3)
[2020-08-30] MEDS: POTASSIUM CHLORIDE INJ 30 MEQ in SODIUM CHLORIDE 0.9% 1,000 ML IV SCH ×2 (07:35→21:32)
[2020-08-30 07:42] LABS: Risk Ratio 1.79; VLDL CHOLESTEROL 13.4 MG/DL
[2020-08-30 07:48] LABS: Lymphocytes 22 % (20-55); Segmented Neutrophils 67 % (50-85); Total Cells Counted 100
[2020-08-30 07:49] LABS: Anisocytosis 2+; Hypochromasia 2+; Microcytosis 1+
[2020-08-30 07:50] LABS: Platelet Estimate Adequate; Polychromasia Slight
[2020-08-30] MEDS: PROPRANOLOL 20 MG TABLET PO SCH ×2 (08:01→21:15)
[2020-08-30] MEDS: LACTULOSE 20 GM/30 ML UDCUP PO SCH ×2 (08:01→21:13)
[2020-08-30] MEDS: ASPIRIN EC 81 MG TABLET PO SCH (08:01)
[2020-08-30] MEDS: POTASSIUM CHLORIDE 20 MEQ TABLET PO SCH ×2 (08:01→21:15)
[2020-08-30] MEDS: ALBUTEROL 2 MG TABLET PO SCH ×2 (08:01→21:14)
[2020-08-30] MEDS: PANTOPRAZOLE 40 MG TABLET PO SCH (08:01)
[2020-08-30] MEDS: ALBUTEROL/IPRATROPIUM 3 ML NEB RESP TX SCH ×4 (09:02→19:29)
[2020-08-30] MEDS ORDERED: POTASSIUM CHLORIDE 20 MEQ TABLET PO ONE (11:24)
[2020-08-30] MEDS ORDERED: VANCOMYCIN INJ 750 MG in SODIUM CHLORIDE 0.9% 250 ML IV ONE (16:43)
[2020-08-30] MEDS: ROSUVASTATIN 20 MG TABLET PO SCH (21:14)
[2020-08-30] MEDS: cefTRIAXone 1,000 MG in SYRINGE 1 EACH IV SCH (21:15)
[2020-08-31 06:09] LABS: Basophils % 0.4 % (0.0-0.8); Eosinophils # 0.1 10*3/uL (0.0-0.87); Eosinophils % 1.9 % (0.00-10.9); Hematocrit 26.6 VOL% (35.7-47.0); Hemoglobin 8.1 GM/DL (12.0-16.0); Immature Granulocytes % 0.6 %; Immature Granulocytes Absolute 0.03 #; Lymphocytes # 1.5 10*3/uL (1.4-4.0); Lymphocytes % 32.3 % (21.3-54.2); Mean Corpuscular HGB Conc 30.5 GM/DL (32-36); Mean Corpuscular Volume 90.5 FL (87-102); Mean Platelet Volume 10.3 FL (9.6-12.0); Monocytes % 15.2 % (1.7-12.7); Neutrophils % 49.6 % (38.7-73.9); Red Blood Count 2.94 MC/CUMM (3.8-5.5); Red Cell Distribution Width 19.1 % (9.3-17.3); White Blood Count 4.7 T/CUMM (4-12)
[2020-08-31 06:12] LABS: Platelet Count 94 T/CUMM (130-400)
[2020-08-31 06:26] LABS: Calcium 7.8 MG/DL (8.5-10.1); Osmolality,Calculated 275.8 MOS/KG (273-304)
[2020-08-31 06:31] LABS: Hypochromasia 2+; Lymphocytes 25 % (20-55); Microcytosis 1+; Platelet Estimate Decreased; Segmented Neutrophils 64 % (50-85); Total Cells Counted 100
[2020-08-31 06:31] LABS: Albumin 1.8 G/DL (3.4-5.0); Bilirubin,Direct 0.27 MG/DL (0.0-0.20); Bilirubin,Indirect 0.4 MG/DL (0.0-1.0); Bilirubin,Total 0.7 MG/DL (0.2-1.0); Total Protein 5.8 G/DL (6.4-8.3)
[2020-08-31] MEDS: ALBUTEROL/IPRATROPIUM 3 ML NEB RESP TX SCH ×4 (07:22→20:05)
[2020-08-31] MEDS: ASPIRIN EC 81 MG TABLET PO SCH (09:44)
[2020-08-31] MEDS: PANTOPRAZOLE 40 MG TABLET PO SCH (09:44)
[2020-08-31] MEDS: LACTULOSE 20 GM/30 ML UDCUP PO SCH ×2 (09:45→23:26)
[2020-08-31] MEDS: PROPRANOLOL 20 MG TABLET PO SCH ×2 (09:45→23:25)
[2020-08-31] MEDS: POTASSIUM CHLORIDE 20 MEQ TABLET PO SCH ×2 (09:45→23:25)
[2020-08-31] MEDS: ALBUTEROL 2 MG TABLET PO SCH ×2 (09:48→23:25)
[2020-08-31] MEDS: POTASSIUM CHLORIDE INJ 30 MEQ in SODIUM CHLORIDE 0.9% 1,000 ML IV SCH (11:12)
[2020-08-31] MEDS: ROSUVASTATIN 20 MG TABLET PO SCH (23:25)
[2020-08-31] MEDS: cefTRIAXone 1,000 MG in SYRINGE 1 EACH IV SCH (23:27)
[2020-09-01] MEDS: POTASSIUM CHLORIDE INJ 30 MEQ in SODIUM CHLORIDE 0.9% 1,000 ML IV SCH ×2 (01:40→13:42)
[2020-09-01] MEDS: ALBUTEROL/IPRATROPIUM 3 ML NEB RESP TX SCH ×4 (06:52→20:22)
[2020-09-01 08:55] LABS: Basophils % 0.5 % (0.0-0.8); Eosinophils # 0.1 10*3/uL (0.0-0.87); Eosinophils % 0.8 % (0.00-10.9); Hematocrit 28.6 VOL% (35.7-47.0); Hemoglobin 8.7 GM/DL (12.0-16.0); Immature Granulocytes % 0.8 %; Immature Granulocytes Absolute 0.05 #; Lymphocytes # 2.1 10*3/uL (1.4-4.0); Lymphocytes % 33.8 % (21.3-54.2); Mean Corpuscular HGB Conc 30.4 GM/DL (32-36); Mean Corpuscular Volume 92.3 FL (87-102); Mean Platelet Volume 9.8 FL (9.6-12.0); Monocytes % 13.9 % (1.7-12.7); Neutrophils % 50.2 % (38.7-73.9); Red Cell Distribution Width 19.6 % (9.3-17.3)
[2020-09-01 09:01] LABS: Platelet Count 123 T/CUMM (130-400); White Blood Count 6.3 T/CUMM (4-12)
[2020-09-01 09:14] LABS: Eosinophils 1 % (0-10); Hypochromasia 1+; Lymphocytes 22 % (20-55); Microcytosis 1+; Platelet Estimate Normal; Segmented Neutrophils 63 % (50-85); Total Cells Counted 100
[2020-09-01 09:20] LABS: Bilirubin,Total 0.7 MG/DL (0.2-1.0); Calcium 8.4 MG/DL (8.5-10.1); Total Protein 6.4 G/DL (6.4-8.3)
[2020-09-01] MEDS: PANTOPRAZOLE 40 MG TABLET PO SCH (09:25)
[2020-09-01] MEDS: PROPRANOLOL 20 MG TABLET PO SCH ×2 (09:26→21:40)
[2020-09-01] MEDS: ALBUTEROL 2 MG TABLET PO SCH ×2 (09:27→21:41)
[2020-09-01] MEDS: ASPIRIN EC 81 MG TABLET PO SCH (09:27)
[2020-09-01] MEDS: POTASSIUM CHLORIDE 20 MEQ TABLET PO SCH (09:28)
[2020-09-01] MEDS: LACTULOSE 20 GM/30 ML UDCUP PO SCH ×2 (09:30→21:41)
[2020-09-01] MEDS: ROSUVASTATIN 20 MG TABLET PO SCH (21:40)
[2020-09-01] MEDS: cefTRIAXone 1,000 MG in SYRINGE 1 EACH IV SCH (21:41)
[2020-09-02 05:08] LABS: Basophils % 0.4 % (0.0-0.8); Eosinophils # 0.2 10*3/uL (0.0-0.87); Eosinophils % 2.2 % (0.00-10.9); Hematocrit 28.7 VOL% (35.7-47.0); Hemoglobin 8.7 GM/DL (12.0-16.0); Immature Granulocytes % 0.8 %; Immature Granulocytes Absolute 0.06 #; Lymphocytes # 2.5 10*3/uL (1.4-4.0); Lymphocytes % 34.2 % (21.3-54.2); Mean Corpuscular HGB Conc 30.3 GM/DL (32-36); Mean Corpuscular Volume 91.7 FL (87-102); Mean Platelet Volume 9.9 FL (9.6-12.0); Monocytes % 15.2 % (1.7-12.7); Neutrophils % 47.2 % (38.7-73.9); Platelet Count 143 T/CUMM (130-400); Red Blood Count 3.13 MC/CUMM (3.8-5.5); Red Cell Distribution Width 19.8 % (9.3-17.3); White Blood Count 7.2 T/CUMM (4-12)
[2020-09-02 05:33] LABS: Band Neutrophils 1 % (0-10); Hypochromasia 1+; Lymphocytes 21 % (20-55); Microcytosis 1+; Ovalocytes Slight; Platelet Estimate Adequate; Segmented Neutrophils 68 % (50-85); Total Cells Counted 100
[2020-09-02 05:34] LABS: Albumin 1.9 G/DL (3.4-5.0); Bilirubin,Total 0.6 MG/DL (0.2-1.0); Calcium 8.1 MG/DL (8.5-10.1); Osmolality,Calculated 270.2 MOS/KG (273-304); Total Protein 6.3 G/DL (6.4-8.3)
[2020-09-02] MEDS ORDERED: INSULIN REGULAR 100 UNIT/ML IV ONE ×2 (05:45→11:49)
[2020-09-02] MEDS ORDERED: DEXTROSE 50% 25 GM/50 ML VIAL IV ONE ×2 (05:47→11:51)
[2020-09-02] MEDS: POTASSIUM CHLORIDE INJ 30 MEQ in SODIUM CHLORIDE 0.9% 1,000 ML IV SCH (07:13)
[2020-09-02] MEDS: ALBUTEROL/IPRATROPIUM 3 ML NEB RESP TX SCH ×4 (07:42→20:18)
[2020-09-02] MEDS ORDERED: CALCIUM GLUCONATE 1,000 MG in SODIUM CHLORIDE 0.9% 100 ML IV ONE (08:14)
[2020-09-02] MEDS: PROPRANOLOL 20 MG TABLET PO SCH ×2 (08:40→21:56)
[2020-09-02] MEDS: ASPIRIN EC 81 MG TABLET PO SCH (08:40)
[2020-09-02] MEDS: PANTOPRAZOLE 40 MG TABLET PO SCH (08:40)
[2020-09-02] MEDS: LACTULOSE 20 GM/30 ML UDCUP PO SCH ×2 (08:41→21:56)
[2020-09-02] MEDS: ALBUTEROL 2 MG TABLET PO SCH ×2 (08:45→21:57)
[2020-09-02] MEDS: methylPREDNISolone SOD SUC 125 MG/2 ML VIAL IV SCH ×2 (11:24→18:17)
[2020-09-02] MEDS: DOCUSATE SODIUM 100 MG CAPSULE PO SCH ×2 (11:24→21:57)
[2020-09-02] MEDS ORDERED: SODIUM POLYSTYRENE SULFATE 15 GM/60 ML BOTTLE PO ONE (11:49)
[2020-09-02] MEDS: ALBUTEROL 2.5 MG/3 ML NEB RESP TX PRN (17:41)
[2020-09-02] MEDS: ROSUVASTATIN 20 MG TABLET PO SCH (21:57)
[2020-09-02] MEDS: cefTRIAXone 1,000 MG in SYRINGE 1 EACH IV SCH (22:02)
[2020-09-03 01:12] LABS: Hematocrit 29.2 VOL% (35.7-47.0); Hemoglobin 8.7 GM/DL (12.0-16.0); Immature Granulocytes % 0.6 %; Immature Granulocytes Absolute 0.03 #; Lymphocytes # 0.8 10*3/uL (1.4-4.0); Lymphocytes % 15.3 % (21.3-54.2); Mean Corpuscular HGB Conc 29.8 GM/DL (32-36); Mean Corpuscular Volume 92.1 FL (87-102); Mean Platelet Volume 9.8 FL (9.6-12.0); Monocytes % 4.2 % (1.7-12.7); Neutrophils % 79.9 % (38.7-73.9); Platelet Count 114 T/CUMM (130-400); Red Blood Count 3.17 MC/CUMM (3.8-5.5); Red Cell Distribution Width 19.5 % (9.3-17.3); White Blood Count 5.4 T/CUMM (4-12)
[2020-09-03 01:44] LABS: Calcium 8.5 MG/DL (8.5-10.1); Osmolality,Calculated 273.5 MOS/KG (273-304)
[2020-09-03] MEDS: methylPREDNISolone SOD SUC 125 MG/2 ML VIAL IV SCH ×3 (02:00→18:24)
[2020-09-03 05:20] LABS: INR 1.1; PT Patient Result 11.8 SECS (9.8-11.9)
[2020-09-03] MEDS: ALBUTEROL/IPRATROPIUM 3 ML NEB RESP TX SCH ×4 (07:13→19:06)
[2020-09-03] MEDS ORDERED: DIAZEPAM 5 MG TABLET PO ONE (07:40)
[2020-09-03] MEDS: MORPHINE 4 MG/1 ML VIAL IV PRN (08:01)
[2020-09-03] MEDS: SODIUM CHLORIDE 0.45% 1,000 ML IV SCH (08:05)
[2020-09-03] MEDS ORDERED: DEXTROSE 50% 25 GM/50 ML VIAL IV ONE (08:16)
[2020-09-03] MEDS ORDERED: INSULIN REGULAR 100 UNIT/ML IV ONE (08:16)
[2020-09-03] MEDS ORDERED: CALCIUM GLUCONATE 1,000 MG in SODIUM CHLORIDE 0.9% 100 ML IV ONE (08:16)
[2020-09-03] MEDS: DOCUSATE SODIUM 100 MG CAPSULE PO SCH ×2 (12:13→21:24)
[2020-09-03] MEDS: PANTOPRAZOLE 40 MG TABLET PO SCH (12:13)
[2020-09-03] MEDS: ASPIRIN EC 81 MG TABLET PO SCH (12:13)
[2020-09-03] MEDS: LACTULOSE 20 GM/30 ML UDCUP PO SCH ×2 (12:14→21:24)
[2020-09-03] MEDS: PROPRANOLOL 20 MG TABLET PO SCH ×2 (12:14→21:24)
[2020-09-03] MEDS: ALBUTEROL 2 MG TABLET PO SCH ×2 (12:15→23:02)
[2020-09-03] MEDS: ROSUVASTATIN 20 MG TABLET PO SCH (21:24)
[2020-09-03] MEDS: cefTRIAXone 1,000 MG in SYRINGE 1 EACH IV SCH (21:25)
[2020-09-04] MEDS: methylPREDNISolone SOD SUC 125 MG/2 ML VIAL IV SCH ×3 (02:43→21:08)
[2020-09-04 05:38] LABS: Hematocrit 26.6 VOL% (35.7-47.0); Immature Granulocytes % 0.9 %; Immature Granulocytes Absolute 0.06 #; Lymphocytes # 0.6 10*3/uL (1.4-4.0); Lymphocytes % 8.8 % (21.3-54.2); Mean Corpuscular HGB Conc 30.1 GM/DL (32-36); Mean Corpuscular Volume 92.7 FL (87-102); Mean Platelet Volume 9.4 FL (9.6-12.0); Monocytes % 9.6 % (1.7-12.7); Neutrophils % 80.7 % (38.7-73.9); Platelet Count 120 T/CUMM (130-400); Red Blood Count 2.87 MC/CUMM (3.8-5.5); Red Cell Distribution Width 19.7 % (9.3-17.3); White Blood Count 6.7 T/CUMM (4-12)
[2020-09-04 06:07] LABS: Albumin 1.9 G/DL (3.4-5.0); Bilirubin,Total 0.5 MG/DL (0.2-1.0); Calcium 8.4 MG/DL (8.5-10.1); Osmolality,Calculated 274.2 MOS/KG (273-304); Total Protein 6.4 G/DL (6.4-8.3)
[2020-09-04] MEDS: ALBUTEROL/IPRATROPIUM 3 ML NEB RESP TX SCH ×4 (07:36→19:12)
[2020-09-04 08:31] LABS: % Iron Saturation 7.7 % (18-50); Ferritin 31.5 ng/ml (8-252)
[2020-09-04 08:35] LABS: Folate 6.2 NG/ML (5.4-24.0); Vitamin B12 > 2000 PG/ML (211-911)
[2020-09-04] MEDS: PANTOPRAZOLE 40 MG TABLET PO SCH (10:40)
[2020-09-04] MEDS: DOCUSATE SODIUM 100 MG CAPSULE PO SCH ×2 (10:40→21:09)
[2020-09-04] MEDS: PROPRANOLOL 20 MG TABLET PO SCH ×2 (10:41→21:09)
[2020-09-04] MEDS: ASPIRIN EC 81 MG TABLET PO SCH (10:41)
[2020-09-04] MEDS: LACTULOSE 20 GM/30 ML UDCUP PO SCH ×2 (10:42→21:08)
[2020-09-04] MEDS: SODIUM CHLORIDE 0.45% 1,000 ML IV SCH (10:45)
[2020-09-04] MEDS ORDERED: FUROSEMIDE 20 MG TABLET PO SCH (12:30)
[2020-09-04] MEDS: SPIRONOLACTONE 50 MG TABLET PO SCH (13:26)
[2020-09-04] MEDS: FERRIC GLUCONATE COMPLEX 125 MG in SODIUM CHLORIDE 0.9% 100 ML IV SCH (15:51)
[2020-09-04] MEDS: BUDESONIDE/FORMOTEROL 160-4.5 INHALER 6 GM INH SCH ×2 (18:07→21:19)
[2020-09-04] MEDS: ALBUTEROL 2 MG TABLET PO SCH ×2 (21:08→21:09)
[2020-09-04] MEDS: cefTRIAXone 1,000 MG in SYRINGE 1 EACH IV SCH (21:08)
[2020-09-04] MEDS: ROSUVASTATIN 20 MG TABLET PO SCH (21:09)
[2020-09-04] MEDS ORDERED: FUROSEMIDE 40 MG/4 ML VIAL ONE (22:24)
[2020-09-04] MEDS ORDERED: FUROSEMIDE 40 MG/4 ML VIAL IV ONE (22:34)
[2020-09-04] MEDS: ALBUTEROL 2.5 MG/3 ML NEB RESP TX PRN (23:00)
[2020-09-04] MEDS: MORPHINE 4 MG/1 ML VIAL IV PRN (23:38)
[2020-09-05] MEDS: ALBUTEROL 2.5 MG/3 ML NEB RESP TX PRN (01:27)
[2020-09-05] MEDS: methylPREDNISolone SOD SUC 125 MG/2 ML VIAL IV SCH ×3 (03:36→21:15)
[2020-09-05 05:46] LABS: Basophils % 0.1 % (0.0-0.8); Hematocrit 29.7 VOL% (35.7-47.0); Hemoglobin 8.9 GM/DL (12.0-16.0); Immature Granulocytes % 1.5 %; Immature Granulocytes Absolute 0.12 #; Lymphocytes # 0.5 10*3/uL (1.4-4.0); Lymphocytes % 6.3 % (21.3-54.2); Mean Corpuscular Volume 92.2 FL (87-102); Mean Platelet Volume 9.4 FL (9.6-12.0); Monocytes % 13.6 % (1.7-12.7); Neutrophils % 78.5 % (38.7-73.9); Red Blood Count 3.22 MC/CUMM (3.8-5.5); Red Cell Distribution Width 19.6 % (9.3-17.3); White Blood Count 8.2 T/CUMM (4-12)
[2020-09-05 05:47] LABS: Platelet Count 94 T/CUMM (130-400)
[2020-09-05 06:20] LABS: Osmolality,Calculated 273.4 MOS/KG (273-304)
[2020-09-05 06:28] LABS: Hypochromasia 1+; Microcytosis 1+; Ovalocytes Slight; Platelet Estimate Decreased
[2020-09-05] MEDS: ALBUTEROL/IPRATROPIUM 3 ML NEB RESP TX SCH ×4 (07:38→19:53)
[2020-09-05] MEDS: LACTULOSE 20 GM/30 ML UDCUP PO SCH ×2 (10:38→22:01)
[2020-09-05] MEDS: SPIRONOLACTONE 50 MG TABLET PO SCH (10:39)
[2020-09-05] MEDS: DOCUSATE SODIUM 100 MG CAPSULE PO SCH ×2 (10:40→22:03)
[2020-09-05] MEDS: PROPRANOLOL 20 MG TABLET PO SCH ×2 (10:40→22:03)
[2020-09-05] MEDS: ASPIRIN EC 81 MG TABLET PO SCH (10:41)
[2020-09-05] MEDS: PANTOPRAZOLE 40 MG TABLET PO SCH (10:42)
[2020-09-05] MEDS: FUROSEMIDE 20 MG TABLET PO SCH (10:42)
[2020-09-05] MEDS: FERRIC GLUCONATE COMPLEX 125 MG in SODIUM CHLORIDE 0.9% 100 ML IV SCH (10:43)
[2020-09-05] MEDS: SODIUM CHLORIDE 0.45% 1,000 ML IV SCH (10:44)
[2020-09-05] MEDS: MORPHINE 4 MG/1 ML VIAL IV PRN (11:36)
[2020-09-05 14:34] LABS: Bacteria,Urine Occasional /HPF (Few); Bilirubin,Urine Negative (Negative); Blood, Urine Small mg/dL (Negative); Glucose,Urine (UA) 50 mg/dL (Negative); Hyaline Casts,Urine 3 /LPF (0-3); Ketones,Urine Negative (Negative); Mucus,Urine Occasional /LPF (Occasional); Nitrite,Urine Negative (Negative); Protein,Urine 30 MG/DL; RBC,Urine <1 /HPF (0-4); Squamous Epithelial Cell,Urine Occasional /HPF (0-10); Urine Appearance CLEAR (Clear); Urine Color Yellow (Yellow); Urine Specific Gravity 1.012 (1.001-1.035); Urine Urobilinogen < 2.0 EU/DL (0.2-1.0)
[2020-09-05] MEDS: ALBUTEROL 2 MG TABLET PO SCH ×2 (15:45→22:03)
[2020-09-05] MEDS: AZITHROMYCIN INJ 500 MG in SODIUM CHLORIDE 0.9% 250 ML IV SCH (15:55)
[2020-09-05] MEDS: BUDESONIDE/FORMOTEROL 160-4.5 INHALER 6 GM INH SCH ×2 (15:55→22:17)
[2020-09-05] MEDS: metroNIDAZOLE INJ 500 MG in PREMIX 1 EACH IV SCH ×2 (17:26→22:04)
[2020-09-05] MEDS: ROSUVASTATIN 20 MG TABLET PO SCH (22:02)
[2020-09-05] MEDS: cefTRIAXone 1,000 MG in SYRINGE 1 EACH IV SCH (22:05)
[2020-09-06] MEDS: methylPREDNISolone SOD SUC 125 MG/2 ML VIAL IV SCH ×4 (03:23→19:57)
[2020-09-06 05:53] LABS: Basophils % 0.1 % (0.0-0.8); Hematocrit 26.5 VOL% (35.7-47.0); Hemoglobin 8.2 GM/DL (12.0-16.0); Immature Granulocytes % 1.1 %; Immature Granulocytes Absolute 0.09 #; Lymphocytes # 0.6 10*3/uL (1.4-4.0); Lymphocytes % 7.6 % (21.3-54.2); Mean Corpuscular HGB Conc 30.9 GM/DL (32-36); Mean Corpuscular Volume 90.8 FL (87-102); Mean Platelet Volume 9.6 FL (9.6-12.0); Monocytes % 11.3 % (1.7-12.7); NRBC # 0.02 10*3/uL; Neutrophils % 79.9 % (38.7-73.9); Red Blood Count 2.92 MC/CUMM (3.8-5.5); Red Cell Distribution Width 19.7 % (9.3-17.3); White Blood Count 8.1 T/CUMM (4-12)
[2020-09-06 05:56] LABS: Platelet Count 88 T/CUMM (130-400)
[2020-09-06 05:59] LABS: Albumin 1.9 G/DL (3.4-5.0); Bilirubin,Total 1.2 MG/DL (0.2-1.0); Calcium 8.1 MG/DL (8.5-10.1); Osmolality,Calculated 278.2 MOS/KG (273-304); Total Protein 6.2 G/DL (6.4-8.3)
[2020-09-06 06:15] LABS: Band Neutrophils 1 % (0-10); Hypochromasia 1+; Lymphocytes 8 % (20-55); Platelet Estimate Decreased; Segmented Neutrophils 88 % (50-85); Total Cells Counted 100
[2020-09-06] MEDS: metroNIDAZOLE INJ 500 MG in PREMIX 1 EACH IV SCH ×3 (06:54→19:57)
[2020-09-06] MEDS: ALBUTEROL/IPRATROPIUM 3 ML NEB RESP TX SCH ×4 (07:26→19:43)
[2020-09-06] MEDS: ALBUTEROL 2 MG TABLET PO SCH ×2 (09:20→22:08)
[2020-09-06] MEDS: FUROSEMIDE 20 MG TABLET PO SCH (09:20)
[2020-09-06] MEDS: LACTULOSE 20 GM/30 ML UDCUP PO SCH ×2 (09:21→22:10)
[2020-09-06] MEDS: ASPIRIN EC 81 MG TABLET PO SCH (09:21)
[2020-09-06] MEDS: DOCUSATE SODIUM 100 MG CAPSULE PO SCH ×2 (09:21→22:09)
[2020-09-06] MEDS: SPIRONOLACTONE 50 MG TABLET PO SCH (09:21)
[2020-09-06] MEDS: PROPRANOLOL 20 MG TABLET PO SCH ×2 (09:21→22:09)
[2020-09-06] MEDS: PANTOPRAZOLE 40 MG TABLET PO SCH (09:21)
[2020-09-06] MEDS: FERRIC GLUCONATE COMPLEX 125 MG in SODIUM CHLORIDE 0.9% 100 ML IV SCH (09:25)
[2020-09-06] MEDS: BUDESONIDE/FORMOTEROL 160-4.5 INHALER 6 GM INH SCH ×2 (09:27→22:12)
[2020-09-06 11:39] LABS: ABG Base Excess -4.5 MMOL/L (-2.5-2.5); ABG HCO3 20.7 MMOL/L (20-26); ABG Oxygen Saturation 99.4 % (95-100); ABG PCO2 40.6 MM HG (35-48); ABG PH 7.326 (7.35-7.45); ABG TCO2 19.9 MMOL/L (23-27)
[2020-09-06] MEDS: ENOXAPARIN 30 MG/0.3 ML SYRINGE SUBCUT SCH (12:30)
[2020-09-06] MEDS: AZITHROMYCIN INJ 500 MG in SODIUM CHLORIDE 0.9% 250 ML IV SCH (12:32)
[2020-09-06] MEDS: SODIUM CHLORIDE 0.45% 1,000 ML IV SCH (12:56)
[2020-09-06] MEDS: cefTRIAXone 1,000 MG in SYRINGE 1 EACH IV SCH (22:07)
[2020-09-06] MEDS: ROSUVASTATIN 20 MG TABLET PO SCH (22:09)
[2020-09-07] MEDS: methylPREDNISolone SOD SUC 125 MG/2 ML VIAL IV SCH ×3 (03:56→21:14)
[2020-09-07] MEDS: metroNIDAZOLE INJ 500 MG in PREMIX 1 EACH IV SCH ×3 (03:57→21:06)
[2020-09-07 06:26] LABS: Basophils % 0.1 % (0.0-0.8); Hematocrit 26.1 VOL% (35.7-47.0); Immature Granulocytes % 0.6 %; Immature Granulocytes Absolute 0.04 #; Lymphocytes # 0.4 10*3/uL (1.4-4.0); Lymphocytes % 5.8 % (21.3-54.2); Mean Corpuscular HGB Conc 30.7 GM/DL (32-36); Mean Corpuscular Volume 91.6 FL (87-102); Mean Platelet Volume 10.9 FL (9.6-12.0); Monocytes % 7.9 % (1.7-12.7); NRBC # 0.09 10*3/uL; Neutrophils % 85.6 % (38.7-73.9); Platelet Count 89 T/CUMM (130-400); Red Blood Count 2.85 MC/CUMM (3.8-5.5); Red Cell Distribution Width 20.1 % (9.3-17.3); White Blood Count 6.7 T/CUMM (4-12)
[2020-09-07 06:39] LABS: Calcium 7.5 MG/DL (8.5-10.1); Osmolality,Calculated 293.7 MOS/KG (273-304)
[2020-09-07 06:53] LABS: Lymphocytes 1 % (20-55); Platelet Estimate Decreased; Segmented Neutrophils 96 % (50-85); Total Cells Counted 100
[2020-09-07 06:54] LABS: Hypochromasia 1+; Microcytosis 1+; Ovalocytes Slight
[2020-09-07] MEDS: ALBUTEROL/IPRATROPIUM 3 ML NEB RESP TX SCH ×4 (07:31→19:25)
[2020-09-07] MEDS: ASPIRIN EC 81 MG TABLET PO SCH (08:20)
[2020-09-07] MEDS: SPIRONOLACTONE 50 MG TABLET PO SCH (08:20)
[2020-09-07] MEDS: PROPRANOLOL 20 MG TABLET PO SCH ×2 (08:20→21:08)
[2020-09-07] MEDS: FUROSEMIDE 20 MG TABLET PO SCH (08:20)
[2020-09-07] MEDS: PANTOPRAZOLE 40 MG TABLET PO SCH (08:20)
[2020-09-07] MEDS: ALBUTEROL 2 MG TABLET PO SCH ×2 (08:21→21:08)
[2020-09-07] MEDS: LACTULOSE 20 GM/30 ML UDCUP PO SCH ×2 (08:21→21:07)
[2020-09-07] MEDS: DOCUSATE SODIUM 100 MG CAPSULE PO SCH ×2 (08:21→21:07)
[2020-09-07] MEDS: BUDESONIDE/FORMOTEROL 160-4.5 INHALER 6 GM INH SCH ×2 (08:22→21:08)
[2020-09-07] MEDS: FERRIC GLUCONATE COMPLEX 125 MG in SODIUM CHLORIDE 0.9% 100 ML IV SCH (09:42)
[2020-09-07] MEDS: ALPRAZolam 0.25 MG TABLET PO PRN ×2 (11:42→21:08)
[2020-09-07] MEDS: AZITHROMYCIN INJ 500 MG in SODIUM CHLORIDE 0.9% 250 ML IV SCH (11:47)
[2020-09-07] MEDS: ENOXAPARIN 30 MG/0.3 ML SYRINGE SUBCUT SCH (13:22)
[2020-09-07] MEDS ORDERED: DEXTROSE 50% 25 GM/50 ML VIAL IV PRN (15:40)
[2020-09-07] MEDS: INSULIN REGULAR 100 UNIT/ML SUBCUT SCH ×2 (16:33→21:08)
[2020-09-07] MEDS: ACETAMINOPHEN 325 MG TABLET PO PRN (16:33)
[2020-09-07] MEDS: cefTRIAXone 1,000 MG in SYRINGE 1 EACH IV SCH (21:06)
[2020-09-07] MEDS: ROSUVASTATIN 20 MG TABLET PO SCH (21:07)
[2020-09-08] MEDS: ACETAMINOPHEN 325 MG TABLET PO PRN ×2 (01:24→20:13)
[2020-09-08] MEDS: methylPREDNISolone SOD SUC 125 MG/2 ML VIAL IV SCH ×3 (04:40→20:17)
[2020-09-08] MEDS: metroNIDAZOLE INJ 500 MG in PREMIX 1 EACH IV SCH ×3 (04:43→20:17)
[2020-09-08 06:19] LABS: Albumin 1.9 G/DL (3.4-5.0); Bilirubin,Total 0.9 MG/DL (0.2-1.0); Calcium 7.5 MG/DL (8.5-10.1); Osmolality,Calculated 286.8 MOS/KG (273-304); Total Protein 6.4 G/DL (6.4-8.3)
[2020-09-08] MEDS: ALBUTEROL/IPRATROPIUM 3 ML NEB RESP TX SCH ×4 (07:06→19:06)
[2020-09-08] MEDS: DOCUSATE SODIUM 100 MG CAPSULE PO SCH ×2 (08:23→20:19)
[2020-09-08] MEDS: PANTOPRAZOLE 40 MG TABLET PO SCH (08:23)
[2020-09-08] MEDS: ASPIRIN EC 81 MG TABLET PO SCH (08:23)
[2020-09-08] MEDS: SPIRONOLACTONE 50 MG TABLET PO SCH (08:24)
[2020-09-08] MEDS: PROPRANOLOL 20 MG TABLET PO SCH ×2 (08:24→20:13)
[2020-09-08] MEDS: ALBUTEROL 2 MG TABLET PO SCH ×2 (08:24→20:13)
[2020-09-08] MEDS: ALPRAZolam 0.25 MG TABLET PO PRN ×2 (08:24→20:13)
[2020-09-08] MEDS: BUDESONIDE/FORMOTEROL 160-4.5 INHALER 6 GM INH SCH ×2 (08:24→20:29)
[2020-09-08] MEDS: INSULIN REGULAR 100 UNIT/ML SUBCUT SCH ×4 (08:24→20:19)
[2020-09-08] MEDS: LACTULOSE 20 GM/30 ML UDCUP PO SCH ×2 (08:25→20:12)
[2020-09-08] MEDS ORDERED: FUROSEMIDE 40 MG/4 ML VIAL IV SCH (09:00)
[2020-09-08] MEDS: FERRIC GLUCONATE COMPLEX 125 MG in SODIUM CHLORIDE 0.9% 100 ML IV SCH (10:24)
[2020-09-08] MEDS: AZITHROMYCIN INJ 500 MG in SODIUM CHLORIDE 0.9% 250 ML IV SCH (11:51)
[2020-09-08] MEDS: ENOXAPARIN 30 MG/0.3 ML SYRINGE SUBCUT SCH (11:51)
[2020-09-08] MEDS: FUROSEMIDE 40 MG/4 ML VIAL IV SCH (17:01)
[2020-09-08] MEDS: ROSUVASTATIN 20 MG TABLET PO SCH (20:12)
[2020-09-08] MEDS: cefTRIAXone 1,000 MG in SYRINGE 1 EACH IV SCH (20:14)
[2020-09-08] MEDS: INSULIN GLARGINE 100 UNIT/ML SUBCUT SCH (20:19)
[2020-09-09] MEDS: methylPREDNISolone SOD SUC 125 MG/2 ML VIAL IV SCH ×2 (04:17→12:31)
[2020-09-09] MEDS: metroNIDAZOLE INJ 500 MG in PREMIX 1 EACH IV SCH ×3 (04:20→21:55)
[2020-09-09 05:45] LABS: Basophils % 0.1 % (0.0-0.8); Hematocrit 28.4 VOL% (35.7-47.0); Hemoglobin 8.6 GM/DL (12.0-16.0); Immature Granulocytes % 1.5 %; Immature Granulocytes Absolute 0.14 #; Lymphocytes # 0.5 10*3/uL (1.4-4.0); Lymphocytes % 5.4 % (21.3-54.2); Mean Corpuscular HGB Conc 30.3 GM/DL (32-36); Mean Corpuscular Volume 93.1 FL (87-102); Mean Platelet Volume 10.6 FL (9.6-12.0); NRBC # 0.17 10*3/uL; Red Blood Count 3.05 MC/CUMM (3.8-5.5); Red Cell Distribution Width 21.5 % (9.3-17.3); White Blood Count 9.6 T/CUMM (4-12)
[2020-09-09 05:46] LABS: Platelet Count 75 T/CUMM (130-400)
[2020-09-09 06:04] LABS: Albumin 1.7 G/DL (3.4-5.0); Bilirubin,Total 0.8 MG/DL (0.2-1.0); Calcium 7.3 MG/DL (8.5-10.1); Osmolality,Calculated 287.4 MOS/KG (273-304); Total Protein 6.3 G/DL (6.4-8.3)
[2020-09-09 06:06] LABS: Hypochromasia 1+
[2020-09-09 06:07] LABS: Microcytosis 1+; Platelet Estimate Decreased
[2020-09-09] MEDS: ALBUTEROL/IPRATROPIUM 3 ML NEB RESP TX SCH ×4 (07:23→19:03)
[2020-09-09] MEDS: INSULIN REGULAR 100 UNIT/ML SUBCUT SCH ×4 (08:44→22:23)
[2020-09-09] MEDS: FUROSEMIDE 40 MG/4 ML VIAL IV SCH ×2 (08:44→16:22)
[2020-09-09] MEDS: PROPRANOLOL 20 MG TABLET PO SCH ×2 (08:45→21:56)
[2020-09-09] MEDS: SPIRONOLACTONE 50 MG TABLET PO SCH (08:45)
[2020-09-09] MEDS: LACTULOSE 20 GM/30 ML UDCUP PO SCH ×2 (08:45→21:55)
[2020-09-09] MEDS: ALBUTEROL 2 MG TABLET PO SCH ×2 (08:46→21:56)
[2020-09-09] MEDS: ASPIRIN EC 81 MG TABLET PO SCH (08:47)
[2020-09-09] MEDS: DOCUSATE SODIUM 100 MG CAPSULE PO SCH ×2 (08:47→21:55)
[2020-09-09] MEDS: PANTOPRAZOLE 40 MG TABLET PO SCH (08:47)
[2020-09-09] MEDS: FERRIC GLUCONATE COMPLEX 125 MG in SODIUM CHLORIDE 0.9% 100 ML IV SCH (08:57)
[2020-09-09] MEDS: BUDESONIDE/FORMOTEROL 160-4.5 INHALER 6 GM INH SCH ×2 (08:58→21:57)
[2020-09-09] MEDS: ENOXAPARIN 30 MG/0.3 ML SYRINGE SUBCUT SCH (12:32)
[2020-09-09] MEDS: AZITHROMYCIN INJ 500 MG in SODIUM CHLORIDE 0.9% 250 ML IV SCH (12:33)
[2020-09-09] MEDS: ACETAMINOPHEN 325 MG TABLET PO PRN (16:21)
[2020-09-09] MEDS: ALPRAZolam 0.25 MG TABLET PO PRN (16:22)
[2020-09-09] MEDS: methylPREDNISolone SOD SUC 40 MG/1 ML VIAL IV SCH (21:00)
[2020-09-09] MEDS: ROSUVASTATIN 20 MG TABLET PO SCH (21:55)
[2020-09-09] MEDS: cefTRIAXone 1,000 MG in SYRINGE 1 EACH IV SCH (21:56)
[2020-09-09] MEDS: INSULIN GLARGINE 100 UNIT/ML SUBCUT SCH (21:56)
[2020-09-09] MEDS ORDERED: dilTIAZem Drip 125 MG/125 ML PREMIX IV SCH (22:30)
[2020-09-10] MEDS: ACETAMINOPHEN 325 MG TABLET PO PRN (00:54)
[2020-09-10] MEDS: ALPRAZolam 0.25 MG TABLET PO PRN ×3 (00:54→23:51)
[2020-09-10] MEDS: methylPREDNISolone SOD SUC 40 MG/1 ML VIAL IV SCH ×3 (04:55→21:55)
[2020-09-10] MEDS: metroNIDAZOLE INJ 500 MG in PREMIX 1 EACH IV SCH ×3 (05:00→21:58)
[2020-09-10 06:28] LABS: Basophils % 0.1 % (0.0-0.8); Hematocrit 28.8 VOL% (35.7-47.0); Hemoglobin 8.8 GM/DL (12.0-16.0); Immature Granulocytes % 2.2 %; Immature Granulocytes Absolute 0.25 #; Lymphocytes # 0.6 10*3/uL (1.4-4.0); Lymphocytes % 5.3 % (21.3-54.2); Mean Corpuscular HGB Conc 30.6 GM/DL (32-36); Mean Corpuscular Volume 94.7 FL (87-102); Mean Platelet Volume 10.6 FL (9.6-12.0); Monocytes % 10.4 % (1.7-12.7); NRBC # 0.16 10*3/uL; Red Blood Count 3.04 MC/CUMM (3.8-5.5); Red Cell Distribution Width 22.6 % (9.3-17.3); White Blood Count 11.2 T/CUMM (4-12)
[2020-09-10 06:34] LABS: Platelet Count 73 T/CUMM (130-400)
[2020-09-10 06:44] LABS: Albumin 1.6 G/DL (3.4-5.0); Bilirubin,Direct 0.22 MG/DL (0.0-0.20); Bilirubin,Indirect 0.6 MG/DL (0.0-1.0); Bilirubin,Total 0.8 MG/DL (0.2-1.0); Calcium 7.4 MG/DL (8.5-10.1); Osmolality,Calculated 282.7 MOS/KG (273-304); Total Protein 6.3 G/DL (6.4-8.3)
[2020-09-10 06:54] LABS: Band Neutrophils 1 % (0-10); Hypochromasia 2+; Lymphocytes 4 % (20-55); Nucleated Red Blood Cells 2 (0-5); Platelet Estimate Decreased; Segmented Neutrophils 89 % (50-85); Total Cells Counted 100
[2020-09-10 06:55] LABS: Microcytosis Slight; Ovalocytes Slight
[2020-09-10] MEDS: ALBUTEROL/IPRATROPIUM 3 ML NEB RESP TX SCH ×4 (07:35→20:11)
[2020-09-10] MEDS ORDERED: POTASSIUM CHLORIDE 20 MEQ TABLET PO ONE (08:10)
[2020-09-10] MEDS: FUROSEMIDE 40 MG/4 ML VIAL IV SCH ×2 (09:00→17:31)
[2020-09-10] MEDS: DOCUSATE SODIUM 100 MG CAPSULE PO SCH ×2 (09:01→21:53)
[2020-09-10] MEDS: ASPIRIN EC 81 MG TABLET PO SCH (09:01)
[2020-09-10] MEDS: PANTOPRAZOLE 40 MG TABLET PO SCH (09:01)
[2020-09-10] MEDS: ALBUTEROL 2 MG TABLET PO SCH ×2 (09:02→21:52)
[2020-09-10] MEDS: SPIRONOLACTONE 50 MG TABLET PO SCH (09:02)
[2020-09-10] MEDS: PROPRANOLOL 20 MG TABLET PO SCH ×2 (09:05→21:53)
[2020-09-10] MEDS: MULTIVITAMIN (CENTRUM) TABLET PO SCH (09:06)
[2020-09-10] MEDS: LACTULOSE 20 GM/30 ML UDCUP PO SCH ×2 (09:07→21:52)
[2020-09-10] MEDS: INSULIN REGULAR 100 UNIT/ML SUBCUT SCH ×4 (09:09→22:01)
[2020-09-10] MEDS: BUDESONIDE/FORMOTEROL 160-4.5 INHALER 6 GM INH SCH ×2 (09:36→22:02)
[2020-09-10] MEDS: FERRIC GLUCONATE COMPLEX 125 MG in SODIUM CHLORIDE 0.9% 100 ML IV SCH (14:36)
[2020-09-10] MEDS: ENOXAPARIN 30 MG/0.3 ML SYRINGE SUBCUT SCH (14:36)
[2020-09-10] MEDS: ROSUVASTATIN 20 MG TABLET PO SCH (21:52)
[2020-09-10] MEDS: INSULIN GLARGINE 100 UNIT/ML SUBCUT SCH (21:53)
[2020-09-10] MEDS: cefTRIAXone 1,000 MG in SYRINGE 1 EACH IV SCH (21:57)
[2020-09-11] MEDS: metroNIDAZOLE INJ 500 MG in PREMIX 1 EACH IV SCH ×3 (00:52→20:05)
[2020-09-11] MEDS: methylPREDNISolone SOD SUC 40 MG/1 ML VIAL IV SCH ×3 (05:16→20:04)
[2020-09-11 05:50] LABS: Basophils % 0.1 % (0.0-0.8); Hemoglobin 8.8 GM/DL (12.0-16.0); Immature Granulocytes % 1.6 %; Immature Granulocytes Absolute 0.17 #; Lymphocytes # 0.5 10*3/uL (1.4-4.0); Lymphocytes % 4.6 % (21.3-54.2); Mean Corpuscular HGB Conc 30.3 GM/DL (32-36); Mean Corpuscular Volume 94.8 FL (87-102); Mean Platelet Volume 9.7 FL (9.6-12.0); Monocytes % 7.4 % (1.7-12.7); NRBC # 0.13 10*3/uL; Neutrophils % 86.3 % (38.7-73.9); Platelet Count 73 T/CUMM (130-400); Red Blood Count 3.06 MC/CUMM (3.8-5.5); Red Cell Distribution Width 23.7 % (9.3-17.3); White Blood Count 10.3 T/CUMM (4-12)
[2020-09-11 06:10] LABS: Albumin 1.5 G/DL (3.4-5.0); Bilirubin,Direct 0.26 MG/DL (0.0-0.20); Bilirubin,Indirect 0.2 MG/DL (0.0-1.0); Bilirubin,Total 0.5 MG/DL (0.2-1.0); Calcium 7.5 MG/DL (8.5-10.1); Osmolality,Calculated 286.7 MOS/KG (273-304)
[2020-09-11 07:23] LABS: Hypochromasia 1+; Lymphocytes 3 % (20-55); Segmented Neutrophils 91 % (50-85); Total Cells Counted 100
[2020-09-11 07:24] LABS: Anisocytosis 1+; Microcytosis 1+; Ovalocytes Slight; Polychromasia Slight
[2020-09-11 07:25] LABS: Platelet Estimate Decreased
[2020-09-11] MEDS: ALBUTEROL/IPRATROPIUM 3 ML NEB RESP TX SCH ×4 (07:25→19:18)
[2020-09-11] MEDS: ASPIRIN EC 81 MG TABLET PO SCH (08:35)
[2020-09-11] MEDS: LACTULOSE 20 GM/30 ML UDCUP PO SCH ×2 (08:35→22:04)
[2020-09-11] MEDS: SPIRONOLACTONE 50 MG TABLET PO SCH (08:36)
[2020-09-11] MEDS: FUROSEMIDE 40 MG TABLET PO SCH (08:36)
[2020-09-11] MEDS: PROPRANOLOL 20 MG TABLET PO SCH ×2 (08:36→22:04)
[2020-09-11] MEDS: ALBUTEROL 2 MG TABLET PO SCH ×2 (08:36→22:03)
[2020-09-11] MEDS: PANTOPRAZOLE 40 MG TABLET PO SCH (08:36)
[2020-09-11] MEDS: DOCUSATE SODIUM 100 MG CAPSULE PO SCH ×2 (08:36→22:04)
[2020-09-11] MEDS: MULTIVITAMIN (CENTRUM) TABLET PO SCH (08:36)
[2020-09-11] MEDS: BUDESONIDE/FORMOTEROL 160-4.5 INHALER 6 GM INH SCH (08:49)
[2020-09-11] MEDS: FERRIC GLUCONATE COMPLEX 125 MG in SODIUM CHLORIDE 0.9% 100 ML IV SCH (08:54)
[2020-09-11] MEDS: INSULIN REGULAR 100 UNIT/ML SUBCUT SCH ×3 (09:07→17:56)
[2020-09-11] MEDS: ENOXAPARIN 30 MG/0.3 ML SYRINGE SUBCUT SCH (12:04)
[2020-09-11] MEDS ORDERED: ARFORMOTEROL 15 MCG/2 ML NEB RESP TX ONE (19:04)
[2020-09-11] MEDS ORDERED: BUDESONIDE 0.5 MG/2 ML NEB RESP TX ONE (19:04)
[2020-09-11] MEDS: ARFORMOTEROL 15 MCG/2 ML NEB RESP TX SCH (19:18)
[2020-09-11] MEDS: BUDESONIDE 0.5 MG/2 ML NEB RESP TX SCH (19:18)
[2020-09-11] MEDS: cefTRIAXone 1,000 MG in SYRINGE 1 EACH IV SCH (22:02)
[2020-09-11] MEDS: ROSUVASTATIN 20 MG TABLET PO SCH (22:03)
[2020-09-12] MEDS: INSULIN REGULAR 100 UNIT/ML SUBCUT SCH ×4 (01:12→17:02)
[2020-09-12] MEDS: INSULIN GLARGINE 100 UNIT/ML SUBCUT SCH (01:12)
[2020-09-12] MEDS: methylPREDNISolone SOD SUC 40 MG/1 ML VIAL IV SCH ×3 (04:07→21:29)
[2020-09-12] MEDS: metroNIDAZOLE INJ 500 MG in PREMIX 1 EACH IV SCH ×3 (04:08→21:29)
[2020-09-12 06:10] LABS: Basophils % 0.1 % (0.0-0.8); Hemoglobin 8.2 GM/DL (12.0-16.0); Immature Granulocytes % 1.3 %; Immature Granulocytes Absolute 0.13 #; Lymphocytes # 0.4 10*3/uL (1.4-4.0); Lymphocytes % 4.2 % (21.3-54.2); Mean Corpuscular HGB Conc 30.4 GM/DL (32-36); Mean Corpuscular Volume 95.4 FL (87-102); Mean Platelet Volume 11.1 FL (9.6-12.0); Monocytes % 6.9 % (1.7-12.7); NRBC # 0.16 10*3/uL; Neutrophils % 87.5 % (38.7-73.9); Platelet Count 69 T/CUMM (130-400); Red Blood Count 2.83 MC/CUMM (3.8-5.5); Red Cell Distribution Width 24.6 % (9.3-17.3); White Blood Count 9.8 T/CUMM (4-12)
[2020-09-12 06:33] LABS: Albumin 1.4 G/DL (3.4-5.0); Bilirubin,Direct 0.25 MG/DL (0.0-0.20); Bilirubin,Indirect 0.6 MG/DL (0.0-1.0); Bilirubin,Total 0.8 MG/DL (0.2-1.0); Calcium 7.9 MG/DL (8.5-10.1); Osmolality,Calculated 283.2 MOS/KG (273-304); Total Protein 5.9 G/DL (6.4-8.3)
[2020-09-12] MEDS: ARFORMOTEROL 15 MCG/2 ML NEB RESP TX SCH ×2 (07:30→19:09)
[2020-09-12] MEDS: ALBUTEROL/IPRATROPIUM 3 ML NEB RESP TX SCH ×4 (07:30→19:09)
[2020-09-12] MEDS: BUDESONIDE 0.5 MG/2 ML NEB RESP TX SCH ×2 (07:30→19:09)
[2020-09-12 07:59] LABS: Band Neutrophils 6 % (0-10); Lymphocytes 6 % (20-55); Metamyelocytes 4 %; Nucleated Red Blood Cells 3 (0-5); Platelet Estimate Decreased; Segmented Neutrophils 77 % (50-85); Total Cells Counted 100
[2020-09-12 08:00] LABS: Anisocytosis 2+; Hypochromasia Slight; Macrocytosis 2+; Polychromasia 2+; Reactive Lymphocytes Few
[2020-09-12] MEDS: MULTIVITAMIN (CENTRUM) TABLET PO SCH (09:08)
[2020-09-12] MEDS: ASPIRIN EC 81 MG TABLET PO SCH (09:08)
[2020-09-12] MEDS: DOCUSATE SODIUM 100 MG CAPSULE PO SCH ×2 (09:08→21:34)
[2020-09-12] MEDS: LACTULOSE 20 GM/30 ML UDCUP PO SCH ×3 (09:08→21:34)
[2020-09-12] MEDS: FERRIC GLUCONATE COMPLEX 125 MG in SODIUM CHLORIDE 0.9% 100 ML IV SCH (09:08)
[2020-09-12] MEDS: SPIRONOLACTONE 50 MG TABLET PO SCH (09:08)
[2020-09-12] MEDS: FUROSEMIDE 40 MG TABLET PO SCH (09:09)
[2020-09-12] MEDS: PROPRANOLOL 20 MG TABLET PO SCH (09:09)
[2020-09-12] MEDS: PANTOPRAZOLE 40 MG TABLET PO SCH (09:09)
[2020-09-12] MEDS: ALBUTEROL 2 MG TABLET PO SCH ×2 (09:14→21:33)
[2020-09-12] MEDS: ENOXAPARIN 30 MG/0.3 ML SYRINGE SUBCUT SCH (13:10)
[2020-09-12 20:59] VITALS: BP 96/55
[2020-09-12] MEDS: ROSUVASTATIN 20 MG TABLET PO SCH (21:33)
[2020-09-12] MEDS: cefTRIAXone 1,000 MG in SYRINGE 1 EACH IV SCH (21:34)
[2020-09-13] MEDS: PROPRANOLOL 20 MG TABLET PO SCH (04:07)
[2020-09-13] MEDS: INSULIN REGULAR 100 UNIT/ML SUBCUT SCH (04:07)
[2020-09-13] MEDS: INSULIN GLARGINE 100 UNIT/ML SUBCUT SCH (04:08)
[2020-09-13] MEDS: LACTULOSE 20 GM/30 ML UDCUP PO SCH (04:10)
[2020-09-13] MEDS: DOCUSATE SODIUM 100 MG CAPSULE PO SCH (04:11)
[2020-09-13] MEDS: ROSUVASTATIN 20 MG TABLET PO SCH (04:13)
[2020-09-13] MEDS: cefTRIAXone 1,000 MG in SYRINGE 1 EACH IV SCH (04:14)
[2020-09-13] MEDS: ALBUTEROL 2 MG TABLET PO SCH (04:14)
== END 2020-09-12 22:09 | disposition expired | DRG 441 ==
LOC: EDUNIT# → EDBD → N.ED 14:55 → N.EDINP 20:16 → SUATTDRO 20:16 → N.EDINP 21:18 → N.TELES 22:01
PROVIDERS: ADMIT Internal Medicine; ATTEND Internal Medicine